=== PATIENT | female | born 1965 | race Caucasian/White ===

== ENCOUNTER → 2016-10-17 | Outpatient (REF) | payer OTHER ==
[~2016-10-17] MED LIST: BUPR75TA5 PO; GABA600T PO; IBUP600T; LEVO112T25 PO; LEVO200T6; LISI10TA4 PO; LORA10TA2 PO; OMEP40CA2 PO; PERC5TAB6 PO; TYLENOL #3; VESICARE; fluticasone spray; oxybutynin OR; tylenol OR
== END | disposition home or self-care (01) ==
LOC: M LAB REF 12:22
PROVIDERS: ATTEND Physician Assistant
DX: N39.0 Urinary tract infection, site not specified (principal)

== ENCOUNTER → 2016-11-06 | Outpatient (REF) | payer OTHER | END | disposition home or self-care (01) | LOC: M LAB REF 11:31 | PROVIDERS: ATTEND Physician Assistant Medical | DX: N39.0 Urinary tract infection, site not specified (principal) ==

== ENCOUNTER 2016-11-16 17:05 | Emergency (ER) | payer OTHER ==
[2016-11-16 17:54] LABS: MEAN CORPUSCULAR HEMOGLOBIN 29.8 pg (27.0-33.0); MEAN CORPUSCULAR HGB CONC 33.5 g/dl (32.0-36.5); RED CELL DISTRIBUTION WIDTH 12.2 % (11.5-14.5); WHITE BLOOD COUNT 6.8 K/mm3 (4.0-10.0)
[2016-11-16 18:06] LABS: ANION GAP 9 MEQ/L (8-16); BLOOD UREA NITROGEN 16 MG/DL (7-18); CALCIUM LEVEL 9.4 MG/DL (8.5-10.1); CARBON DIOXIDE LEVEL 26 MEQ/L (21-32); CHLORIDE LEVEL 105 MEQ/L (98-107); CREATININE FOR GFR 0.79 MG/DL (0.55-1.02); GLOMERULAR FILTRATION RATE > 60.0 (>51); GLUCOSE, FASTING 87 MG/DL (70-105); MAGNESIUM LEVEL 2.2 MG/DL (1.8-2.4); POTASSIUM SERUM 3.8 MEQ/L (3.5-5.1); SODIUM LEVEL 140 MEQ/L (136-145); T UPTAKE 37 % (30-39); THYROXINE (T4) 10.2 UG/DL (4.5-12.0)
--- NOTE | 2016-11-16 18:12 | REP ---
Clinical: Chest pain and palpitations . Comparison: 12/11/2011 . Technique: PA and lateral. Findings: The mediastinum and cardiac silhouette are normal. The lung simon are clear and without acute consolidation, effusion, or pneumothorax. The skeletal structures are intact and normal. Impression: 1. No acute cardiopulmonary process. Signed by Chester Hendrickson MD 11/16/2016 06:04 P
--- NOTE | 2016-11-16 20:18 | EDDOCDS ---
Nurse's Notes [facility] Name: Fatimah Bronson Age: 51 yrs Sex: Female : 1965 Arrival Date: 11/16/2016 Time: 17:05 Bed 5 Private MD: CLARA GREGORIO Diagnosis: Palpitations Presentation: 11/16 17:11 Presenting complaint: Patient states: she has been having palpitations since Sunday, j can feel a weird sensation left side of neck .does get lightheaded and nauseated. Adult Sepsis Screening: The patient does not have new or worsening altered mentation. Patient's respiratory rate is less than 22. Systolic blood pressure is greater than 100. Patient has a qSOFA score of 0- Negative Sepsis Screen. Suicide/Homicide risk assessment- the patient denies having any suicidal and/or homicidal ideations and does not present with any other emotional, behavioral or mental health complaints. Status: Patient is not a pool servicer or dependent. Transition of care: patient was not received from another setting of care. 17:11 Acuity: JANES Level 3 [facility] 17:11 Method Of Arrival: Walkin/Carried/Asstd [facility] Triage Assessment: 17:16 General: Appears in no apparent distress, Behavior is appropriate for age, pleasant. [facility] Pain: Denies pain. Pt Declines HIV testing. Neurological: Level of Consciousness is awake, alert, Oriented to person, place, time. Cardiovascular: Reports lightheadedness, palpitations. Respiratory: Airway is patent Respiratory effort is even, unlabored. Derm: Skin is pink, warm & dry. MEDIA ANALYST: 17:16 LMP N/A - Hysterectomy [facility] Historical: - Allergies: No known drug Allergies; - Home Meds: 1. lisinopril 10 mg Oral tab 1 tab once daily (Last dose: 11/16/2016 05:00) 2. loratadine 10 mg Oral tab 1 tab once daily (Last dose: 11/16/2016 05:00) 3. oxybutynin chloride 10 mg Oral tr24 1 tab once daily (Last dose: 11/16/2016 05:00) 4. levothyroxine 112 mcg Oral tab 1 tab once daily (Last dose: 11/16/2016 05:00) 5. topiramate 25 mg oral cp24 1 cap once daily (Last dose: 11/16/2016 05:00) 6. omeprazole 40 mg Oral cpDR 1 cap 2 times per day (Last dose: 11/16/2016 05:00) - PMHx: Arthritis; Chronic Back pain; Depression; GERD; Hypertension; - PSHx: Thyroidectomy; tubal reversal; Hysterectomy; Tubal ligation; Carpal Tunnel Repair- Bilateral; eye socket fracture repair; right pinky fracture repair and pin placement; bladder sling surgery; enterocele repair, rectocele repair, uterosacaral suspension Oct 2014; ulnar nerve right and left; cervical disc fusion; - Social history: Smoking status: Patient states former smoker of tobacco. No barriers to communication noted, The patient speaks fluent Scottish. - Family history: Not pertinent. - : The pt / caregiver states he / she is not on anticoagulants. Home medication list is obtained from the patient. - Exposure Risk Screening:: None identified. Screenin:30 Screening information is obtained from the patient. Fall risk: No risks identified. jo3 Assistance ADL's: requires no assistance with activities of daily living. Abuse/DV Screen: The patient / caregiver reports he/she is: not in a situation that causes fear, pain or injury. Nutritional screening: No deficits noted. Advance Directives: There is no active DNR order. home support is adequate. Assessment: 17:30 General: Appears in no apparent distress, comfortable, Behavior is appropriate for age, jo3 cooperative, pleasant. Neurological: No deficits noted. Level of Consciousness is awake, alert, Oriented to person, place, time, Speech is normal, Facial symmetry appears normal. EENT: No deficits noted. Cardiovascular: Rhythm is sinus rhythm No ectopy. Chest pain is described as mild, diffuse, is located in left anterior radiates Does not radiate. episodes are intermittent. Respiratory: No deficits noted. Airway is patent Respiratory effort is even, unlabored, Breath sounds are clear bilaterally. Derm: Skin is pink, warm & dry. 18:30 General: Appears in no apparent distress, comfortable, Behavior is appropriate for age, jo3 cooperative, pleasant. Neurological: No deficits noted. Respiratory: Airway is patent Respiratory effort is even, unlabored. 20:16 Reassessment: Patient appears in no apparent distress at this time. Patient states cf2 feeling better. Patient states symptoms have improved. Vital Signs: 17:07 BP 147 / 77; Pulse 82; Resp 18 S; Temp 97.5(O); Pulse Ox 99% ; Weight 104.33 kg (R); gr2 Height 5 ft. 3 in. (160.02 cm) (R); Pain 3/10; 19:27 BP 122 / 67 (auto/); cf2 19:27 Pulse 78 MON; Pulse Ox 95% ; cf2 20:05 Pulse 68 MON; cf2 20:06 BP 141 / 68 (auto/); cf2 20:07 Pulse Ox 94% ; cf2 20:08 BP 141 / 68; Pulse 76; Resp 18; Temp 97.6(O); Pulse Ox 99% on R/A; Pain 0/10; mdr 17:07 Body Mass Index 40.74 (104.33 kg, 160.02 cm) gr2 Vitals: 17:07 Log In Time: November 16, 2016 at 17:07. RN notified that patient meets Red Flag gr2 criteria. ED Course: 17:06 Patient visited by Emani Holt. gr2 17:06 Patient moved to Waiting gr2 17:07 CLARA GREGORIO is Private Physician. gr2 17:11 Patient visited by Emani Holt. gr2 17:11 Patient moved to Pre RCE gr2 17:13 Triage Initiated kpj 17:18 Patient moved to 5 kp 17:20 [facility] le 17:26 EKG done. (by ED staff). Reviewed by Yoko CARR. dem1 17:28 Patient visited by Nick Rodríguez. dem1 17:30 The patient / caregiver is instructed regarding the plan of care and ED course. jo3 17:30 Inserted saline lock: 18 gauge in right antecubital area. Labs drawn. (by ED staff). jo3 Sent per order to lab. 17:32 Patient visited by Yoko Galeano FNP. le 17:32 Patient visited by Yoko Galeano FNP. le 17:58 Patient visited by Albertina Herrera RN. jo3 18:20 [facility] [place] Payment Agreement was scanned into [email or web address] and attached to record. kf3 18:44 Chest, 2 View (pa\E\lat) Returned. EDMS 19:03 Latoya Granado,RN is Primary Nurse. cf2 19:03 Patient visited by Latoya Granado RN. cf2 19:27 Discontinued lock. No procedures done that require assistance. cf2 19:37 Patient visited by Latoya Granado RN. cf2 19:47 Joseph Jc MD is Referral Physician. le 19:58 Patient visited by Latoya Granado RN. cf2 20:17 Mikhail Salazar MD is Attending Physician. cf2 Order Results: Lab Order: CBC; SPEC'M 11/16/16 17:31 Test: WHITE BLOOD COUNT; Value: 6.8; Range: 4.0-10.0; Units: K/mm3; Status: F Test: RED BLOOD COUNT; Value: 4.19; Range: 4.00-5.40; Units: M/mm3; Status: F Test: HEMOGLOBIN; Value: 12.5; Range: 12.0-16.0; Units: g/dl; Status: F Test: HEMATOCRIT; Value: 37.3; Range: 36.0-47.0; Units: %; Status: F Test: MEAN CORPUSCULAR VOLUME; Value: 89.0; Range: 80.0-96.0; Units: fl; Status: F Test: MEAN CORPUSCULAR HEMOGLOBIN; Value: 29.8; Range: 27.0-33.0; Units: pg; Status: F Test: MEAN CORPUSCULAR HGB CONC; Value: 33.5; Range: 32.0-36.5; Units: g/dl; Status: F Test: RED CELL DISTRIBUTION WIDTH; Value: 12.2; Range: 11.5-14.5; Units: %; Status: F Test: PLATELET COUNT, AUTOMATED; Value: 313; Range: 150-450; Units: k/mm3; Status: F Lab Order: BMP; SPEC'M 11/16/16 17:31 Test: GLUCOSE, FASTING; Value: 87; Range: 70-105; Units: MG/DL; Status: F Test: BLOOD UREA NITROGEN; Value: 16; Range: 7-18; Units: MG/DL; Status: F Test: CREATININE FOR GFR; Value: 0.79; Range: 0.55-1.02; Units: MG/DL; Status: F Test: GLOMERULAR FILTRATION RATE; Value: > 60.0; Range: >51; Status: F Test: SODIUM LEVEL; Value: 140; Range: 136-145; Units: MEQ/L; Status: F Test: POTASSIUM SERUM; Value: 3.8; Range: 3.5-5.1; Units: MEQ/L; Status: F Test: CHLORIDE LEVEL; Value: 105; Range: 98-107; Units: MEQ/L; Status: F Test: CARBON DIOXIDE LEVEL; Value: 26; Range: 21-32; Units: MEQ/L; Status: F Test: ANION GAP; Value: 9; Range: 8-16; Units: MEQ/L; Status: F Test: CALCIUM LEVEL; Value: 9.4; Range: 8.5-10.1; Units: MG/DL; Status: F Test Note: ; Units are mL/min/1.73 m2 Chronic Kidney Disease Staging per NKF: Stage I & II GFR >=60 Normal to Mildly Decreased Stage III GFR 30-59 Moderately Decreased Stage IV GFR 15-29 Severely Decreased Stage V GFR <15 Very Little GFR Left ESRD GFR <15 on RESIDENTIAL GAS HEAT TECHNICIAN Lab Order: Magnesium Level; SPEC'11/16/16 17:31 Test: MAGNESIUM LEVEL; Value: 2.2; Range: 1.8-2.4; Units: MG/DL; Status: F Lab Order: Thyroid Profile; SPEC11/16/16 17:31 Test: T UPTAKE; Value: 37; Range: 30-39; Units: %; Status: F Test: THYROXINE (T4); Value: 10.2; Range: 4.5-12.0; Units: UG/DL; Status: F Test: FREE THYROXINE INDEX; Value: 3.8; Range: 1.3-4.8; Units: %; Status: F Test: THYROID STIMULATING HORMONE; Value: 0.043; Range: 0.358-3.740; Abnormal: Below low normal; Units: uIU/ML; Status: F Lab Order: CIP; SPEC'11/16/16 17:31 Test: CPK CREATINE PHOSPHOKINASE; Value: 176; Range: 26-192; Units: U/L; Status: F Test: CK-MB VALUE MASS; Value: 1.5; Range: 0.0-3.6; Units: NG/ML; Status: F Test: MB/CK RELATIVE INDEX; Value: 0.85; Range: < OR =4; Status: F Test Note: ; DIAGNOSIS CRITERIA MMB ng/ml Relative Index (RI) NON-AMI < or = 5 N/A [place] > 5 < or = 4 AMI > 5 > 4 Lab Order: Troponin; LALITHA 11/16/16 17:31 Test: TROPONIN I; Value: < 0.02; Range: < 0.10; Units: NG/ML; Status: F Test Note: ; Troponin I Reference Interval for [employer] LOCI: 99th Percentile= 0.00-0.045 ng/ml Risk Stratification: <= 0.10 ng/ml Decreased Risk for Adverse Clinical Events. 0.10-1.50 ng/ml Increased Risk for Adverse Clinical Events. Evaluation of additional criterion and/or repeat testing in 2-6 hours is suggested to rule out myocardial damage. >= 1.50 ng/ml Indicative of Myocardial Injury. Radiology Order: Chest, 2 View (pa\E\lat) Test: Chest, 2 View (pa\E\lat) REASON FOR EXAMINATION: palpitations; Clinical: Chest pain and palpitations .; ; Comparison: 12/11/2011 .; ; Technique: PA and lateral.; ; Findings:; The mediastinum and cardiac silhouette are normal. The lung simon are clear and; without acute consolidation, effusion, or pneumothorax. The skeletal structures; are intact and normal.; ; Impression:; 1. No acute cardiopulmonary process.; ; ; Signed by; Chester Hendrickson MD 11/16/2016 06:04 P; Outcome: 19:27 Discharge Assessment: Patient awake, alert and oriented x 3. No cognitive and/or cf2 functional deficits noted. Patient verbalized understanding of disposition instructions. Patient awake and alert. Oriented to person, place and time. patient administered narcotics - no. The following High Risk Discharge criteria are identified: None. Discharged to home ambulatory. Condition: good Condition: stable. Discharge instructions given to patient, Instructed on discharge instructions. No special radiology studies were completed. Property :Personal belongings accompany Pt. 19:47 Discharge ordered by Provider. le 20:17 Patient left the ED. cf2 Signatures: Dispatcher [employer] Maryse Brantley RN RN kpj Helmerci, Jennifer, RN RN jo3 Yoko Galeano, RELATIONS SPECIALIST RELATIONS SPECIALIST Benito Dent, Reg Reg kf3 Nick Rodríguez1 Emani Holt gr2 Cezar Murphy, ABHILASH SALT MACHINE OPERATOR mdr Ofelia-Latoya Thomas,RN RN cf2 JAYLYND
--- NOTE | 2016-11-16 20:18 | EDDOCDS ---
Physician Documentation [facility] Name: Fatimah Bronson Age: 51 yrs Sex: Female : 1965 Arrival Date: 11/16/2016 Time: 17:05 Bed 5 Private MD: CLARA GREGORIO [facility] Disposition: 11/16/16 19:47 Discharged to Home/Self Care. Impression: Palpitations. - Condition is Stable. - Discharge Instructions: Palpitations. - Medication Reconciliation, Local Pharmacy Hours, Work Release Form - 1 day form. - Follow up: Joseph Jc MD; When: Call to arrange an appointment; Reason: Recheck today's complaints, Continuance of care. - Problem is new. - Symptoms have improved. - Notes: Return to the ED for any further concerns Historical: - Allergies: No known drug Allergies; - Home Meds: 1. lisinopril 10 mg Oral tab 1 tab once daily (Last dose: 11/16/2016 05:00) 2. loratadine 10 mg Oral tab 1 tab once daily (Last dose: 11/16/2016 05:00) 3. oxybutynin chloride 10 mg Oral tr24 1 tab once daily (Last dose: 11/16/2016 05:00) 4. levothyroxine 112 mcg Oral tab 1 tab once daily (Last dose: 11/16/2016 05:00) 5. topiramate 25 mg oral cp24 1 cap once daily (Last dose: 11/16/2016 05:00) 6. omeprazole 40 mg Oral cpDR 1 cap 2 times per day (Last dose: 11/16/2016 05:00) - PMHx: Arthritis; Chronic Back pain; Depression; GERD; Hypertension; - PSHx: Thyroidectomy; tubal reversal; Hysterectomy; Tubal ligation; Carpal Tunnel Repair- Bilateral; eye socket fracture repair; right pinky fracture repair and pin placement; bladder sling surgery; enterocele repair, rectocele repair, uterosacaral suspension Oct 2014; ulnar nerve right and left; cervical disc fusion; - Social history: Smoking status: Patient states former smoker of tobacco. No barriers to communication noted, The patient speaks fluent Cook Islander. - Family history: Not pertinent. - : The pt / caregiver states he / she is not on anticoagulants. Home medication list is obtained from the patient. - Exposure Risk Screening:: None identified. CHANGE CONTROL COORDINATOR: 11/16 17:16 LMP N/A - Hysterectomy [facility] Vital Signs: 17:07 BP 147 / 77; Pulse 82; Resp 18 S; Temp 97.5(O); Pulse Ox 99% ; Weight 104.33 kg / gr2 230.01 lbs (R); Height 5 ft. 3 in. (160.02 cm) (R); Pain 3/10; 19:27 BP 122 / 67 (auto/); cf2 19:27 Pulse 78 MON; Pulse Ox 95% ; cf2 20:05 Pulse 68 MON; cf2 20:06 BP 141 / 68 (auto/); cf2 20:07 Pulse Ox 94% ; cf2 20:08 BP 141 / 68; Pulse 76; Resp 18; Temp 97.6(O); Pulse Ox 99% on R/A; Pain 0/10; mdr 17:07 Body Mass Index 40.74 (104.33 kg, 160.02 cm) gr2 MDM: 17:18 ECG WITH READING ER PHYS+CARDIAG ordered. EDMS 17:41 IV Saline Lock ordered. le 17:42 Chest, 2 View (pa\E\lat) Ordered. EDMS 17:42 CBC Ordered. EDMS 17:42 BMP Ordered. EDMS 17:42 Magnesium Level Ordered. EDMS 17:42 Thyroid Profile Ordered. EDMS 17:42 CIP Ordered. EDMS 17:42 Troponin Ordered. EDMS 17:55 Financial registration complete. ks16 18:20 [facility] [place] Payment Agreement was scanned into [employer] and attached to record. kf3 19:40 Thyroid Profile Reviewed. le 19:40 CBC Reviewed. le 19:40 BMP Reviewed. le 19:40 Magnesium Level Reviewed. le 19:40 CIP Reviewed. le 19:40 Troponin Reviewed. le 19:40 Chest, 2 View (pa\E\lat) Reviewed. le Signatures: Dispatcher [employer] EDMS Maryse Mario RN RN [facility] Albertina Herrera RN RN jenny3 Yoko Galeano, INSURANCE AGENCY MANAGER INSURANCE AGENCY MANAGER le Benito Muniz, Reg Reg kf3 Shazia Driver, Reg Reg ks16 Latoya Granado,YOLANDA RN cf2 The chart was reviewed and I authenticate all verbal orders and agree with the evaluation and treatment provided.Corrections: (The following items were deleted from the chart) 17:34 17:19 ECG WITH READING ER PHYS+CARDIAG ordered. EDMS EDMS Attachments: 18:20 [facility] Payment Agreement kf3 MTDD
--- NOTE | 2016-11-17 15:16 | ECGEPIP ---
Stationary ECG Study [facility] - ED Test Date: 2016-11-16 Pat Name: KENROY CUEVAS Department: Room: - Gender: F Mail Superintendent: chano : 1965 Requested By: Mikhail Gallagher Order Number: [id number] Reading MD: Cielo Gooden Measurements Intervals [place] Rate: 73 P: 59 [place]: 167 QRS: 24 QRSD: 95 T: 7 QT: 366 QTc: 406 Interpretive Statements SINUS RHYTHM WITH SINUS ARRHYTHMIA NSTTW ABNORMALITY SIMILAR 02/22/16 Electronically Signed On 11-17-2016 15:16:25 EST by Cielo Gooden
--- NOTE | 2016-11-18 21:18 | EDDOCDS ---
Physician Documentation [facility] Name: Fatimah Bronson Age: 51 yrs Sex: Female : 1965 Arrival Date: 11/16/2016 Time: 17:05 Bed 5 Private MD: CLARA GREGORIO [facility] Disposition: 11/16/16 19:47 Discharged to Home/Self Care. Impression: Palpitations. - Condition is Stable. - Discharge Instructions: Palpitations. - Medication Reconciliation, Local Pharmacy Hours, Work Release Form - 1 day form. - Follow up: Joseph Jc MD; When: Call to arrange an appointment; Reason: Recheck today's complaints, Continuance of care. - Problem is new. - Symptoms have improved. - Notes: Return to the ED for any further concerns Historical: - Allergies: No known drug Allergies; - Home Meds: 1. lisinopril 10 mg Oral tab 1 tab once daily (Last dose: 11/16/2016 05:00) 2. loratadine 10 mg Oral tab 1 tab once daily (Last dose: 11/16/2016 05:00) 3. oxybutynin chloride 10 mg Oral tr24 1 tab once daily (Last dose: 11/16/2016 05:00) 4. levothyroxine 112 mcg Oral tab 1 tab once daily (Last dose: 11/16/2016 05:00) 5. topiramate 25 mg oral cp24 1 cap once daily (Last dose: 11/16/2016 05:00) 6. omeprazole 40 mg Oral cpDR 1 cap 2 times per day (Last dose: 11/16/2016 05:00) - PMHx: Arthritis; Chronic Back pain; Depression; GERD; Hypertension; - PSHx: Thyroidectomy; tubal reversal; Hysterectomy; Tubal ligation; Carpal Tunnel Repair- Bilateral; eye socket fracture repair; right pinky fracture repair and pin placement; bladder sling surgery; enterocele repair, rectocele repair, uterosacaral suspension Oct 2014; ulnar nerve right and left; cervical disc fusion; - Social history: Smoking status: Patient states former smoker of tobacco. No barriers to communication noted, The patient speaks fluent Armenian. - Family history: Not pertinent. - : The pt / caregiver states he / she is not on anticoagulants. Home medication list is obtained from the patient. - Exposure Risk Screening:: None identified. SYSTEMS DEVELOPMENT MANAGER: 11/16 17:16 LMP N/A - Hysterectomy [facility] Vital Signs: 17:07 BP 147 / 77; Pulse 82; Resp 18 S; Temp 97.5(O); Pulse Ox 99% ; Weight 104.33 kg / gr2 230.01 lbs (R); Height 5 ft. 3 in. (160.02 cm) (R); Pain 3/10; 19:27 BP 122 / 67 (auto/); cf2 19:27 Pulse 78 MON; Pulse Ox 95% ; cf2 20:05 Pulse 68 MON; cf2 20:06 BP 141 / 68 (auto/); cf2 20:07 Pulse Ox 94% ; cf2 20:08 BP 141 / 68; Pulse 76; Resp 18; Temp 97.6(O); Pulse Ox 99% on R/A; Pain 0/10; mdr 17:07 Body Mass Index 40.74 (104.33 kg, 160.02 cm) gr2 MDM: 17:18 ECG WITH READING ER PHYS+CARDIAG ordered. EDMS 17:41 IV Saline Lock ordered. le 17:42 Chest, 2 View (pa\E\lat) Ordered. EDMS 17:42 CBC Ordered. EDMS 17:42 BMP Ordered. EDMS 17:42 Magnesium Level Ordered. EDMS 17:42 Thyroid Profile Ordered. EDMS 17:42 CIP Ordered. EDMS 17:42 Troponin Ordered. EDMS 17:55 Financial registration complete. ks16 18:20 [facility] [place] was scanned into [employer] and attached to record. kf3 19:40 Thyroid Profile Reviewed. le 19:40 CBC Reviewed. le 19:40 BMP Reviewed. le 19:40 Magnesium Level Reviewed. le 19:40 CIP Reviewed. le 19:40 Troponin Reviewed. le 19:40 Chest, 2 View (pa\E\lat) Reviewed. le 11/17 20:07 T-Sheet-- Draft Copy was scanned into [employer] and attached to record. klr 21:44 ECG/EKG was scanned into [employer] and attached to record. klr Signatures: Dispatcher [employer] EDMS Maryse Mario RN RN j Albertina HerreraRN RN jo3 Yoko Galeano, BOUNTY HUNTER BOUNTY HUNTER le Benito Muniz, Reg Reg kf3 Shazia Driver, Reg Reg ks16 Renetta Wilder klr Latoya Granado,RN RN cf2 The chart was reviewed and I authenticate all verbal orders and agree with the evaluation and treatment provided.Corrections: (The following items were deleted from the chart) 11/16 17:34 17:19 ECG WITH READING ER PHYS+CARDIAG ordered. EDMS EDMS Attachments: 18:20 [facility] [place] kf3 11/17 20:07 T-Sheet-- Draft Copy klr 21:44 ECG/EKG klr Chart Complete MTDD
--- NOTE | 2016-11-18 21:18 | EDDOCDS ---
Physician Documentation [facility] Name: Fatimah Bronson Age: 51 yrs Sex: Female : 1965 Arrival Date: 11/16/2016 Time: 17:05 Bed 5 Private MD: CLARA GREGORIO [facility] Disposition: 11/16/16 19:47 Discharged to Home/Self Care. Impression: Palpitations. - Condition is Stable. - Discharge Instructions: Palpitations. - Medication Reconciliation, Local Pharmacy Hours, Work Release Form - 1 day form. - Follow up: Joseph Jc MD; When: Call to arrange an appointment; Reason: Recheck today's complaints, Continuance of care. - Problem is new. - Symptoms have improved. - Notes: Return to the ED for any further concerns Historical: - Allergies: No known drug Allergies; - Home Meds: 1. lisinopril 10 mg Oral tab 1 tab once daily (Last dose: 11/16/2016 05:00) 2. loratadine 10 mg Oral tab 1 tab once daily (Last dose: 11/16/2016 05:00) 3. oxybutynin chloride 10 mg Oral tr24 1 tab once daily (Last dose: 11/16/2016 05:00) 4. levothyroxine 112 mcg Oral tab 1 tab once daily (Last dose: 11/16/2016 05:00) 5. topiramate 25 mg oral cp24 1 cap once daily (Last dose: 11/16/2016 05:00) 6. omeprazole 40 mg Oral cpDR 1 cap 2 times per day (Last dose: 11/16/2016 05:00) - PMHx: Arthritis; Chronic Back pain; Depression; GERD; Hypertension; - PSHx: Thyroidectomy; tubal reversal; Hysterectomy; Tubal ligation; Carpal Tunnel Repair- Bilateral; eye socket fracture repair; right pinky fracture repair and pin placement; bladder sling surgery; enterocele repair, rectocele repair, uterosacaral suspension Oct 2014; ulnar nerve right and left; cervical disc fusion; - Social history: Smoking status: Patient states former smoker of tobacco. No barriers to communication noted, The patient speaks fluent Fijian. - Family history: Not pertinent. - : The pt / caregiver states he / she is not on anticoagulants. Home medication list is obtained from the patient. - Exposure Risk Screening:: None identified. SPECIALIZED LANGUAGE INSTRUCTOR: 11/16 17:16 LMP N/A - Hysterectomy [facility] Vital Signs: 17:07 BP 147 / 77; Pulse 82; Resp 18 S; Temp 97.5(O); Pulse Ox 99% ; Weight 104.33 kg / gr2 230.01 lbs (R); Height 5 ft. 3 in. (160.02 cm) (R); Pain 3/10; 19:27 BP 122 / 67 (auto/); cf2 19:27 Pulse 78 MON; Pulse Ox 95% ; cf2 20:05 Pulse 68 MON; cf2 20:06 BP 141 / 68 (auto/); cf2 20:07 Pulse Ox 94% ; cf2 20:08 BP 141 / 68; Pulse 76; Resp 18; Temp 97.6(O); Pulse Ox 99% on R/A; Pain 0/10; mdr 17:07 Body Mass Index 40.74 (104.33 kg, 160.02 cm) gr2 MDM: 17:18 ECG WITH READING ER PHYS+CARDIAG ordered. EDMS 17:41 IV Saline Lock ordered. le 17:42 Chest, 2 View (pa\E\lat) Ordered. EDMS 17:42 CBC Ordered. EDMS 17:42 BMP Ordered. EDMS 17:42 Magnesium Level Ordered. EDMS 17:42 Thyroid Profile Ordered. EDMS 17:42 CIP Ordered. EDMS 17:42 Troponin Ordered. EDMS 17:55 Financial registration complete. ks16 18:20 [facility] [place] Payment Agreement was scanned into [employer] and attached to record. kf3 19:40 Thyroid Profile Reviewed. le 19:40 CBC Reviewed. le 19:40 BMP Reviewed. le 19:40 Magnesium Level Reviewed. le 19:40 CIP Reviewed. le 19:40 Troponin Reviewed. le 19:40 Chest, 2 View (pa\E\lat) Reviewed. le 11/17 20:07 T-Sheet-- Draft Copy was scanned into [employer] and attached to record. klr 21:44 ECG/EKG was scanned into [employer] and attached to record. klr Signatures: Dispatcher [employer] EDMS Maryse Mario RN RN j Albertina HerreraRN RN jo3 Yoko Galeano, EMPLOYEE SERVICES MANAGER EMPLOYEE SERVICES MANAGER le Benito Muniz, Reg Reg kf3 Shazia Driver, Reg Reg ks16 Renetta Wilder klr Latoya Granado,RN RN cf2 The chart was reviewed and I authenticate all verbal orders and agree with the evaluation and treatment provided.Corrections: (The following items were deleted from the chart) 11/16 17:34 17:19 ECG WITH READING ER PHYS+CARDIAG ordered. EDMS EDMS Attachments: 18:20 [facility] [place] Payment Agreement kf3 11/17 20:07 T-Sheet-- Draft Copy klr 21:44 ECG/EKG klr Chart Complete MTDD
--- NOTE | 2016-11-18 21:18 | EDDOCDS ---
Nurse's Notes [facility] Name: Kenroy Bronson Age: 51 yrs Sex: Female : 1965 Arrival Date: 11/16/2016 Time: 17:05 Bed 5 Private MD: CLARA GREGORIO Diagnosis: Palpitations Presentation: 11/16 17:11 Presenting complaint: Patient states: she has been having palpitations since Sunday, j can feel a weird sensation left side of neck .does get lightheaded and nauseated. Adult Sepsis Screening: The patient does not have new or worsening altered mentation. Patient's respiratory rate is less than 22. Systolic blood pressure is greater than 100. Patient has a qSOFA score of 0- Negative Sepsis Screen. Suicide/Homicide risk assessment- the patient denies having any suicidal and/or homicidal ideations and does not present with any other emotional, behavioral or mental health complaints. Status: Patient is not a web services architect or dependent. Transition of care: patient was not received from another setting of care. 17:11 Acuity: JANES Level 3 [facility] 17:11 Method Of Arrival: Walkin/Carried/Asstd [facility] Triage Assessment: 17:16 General: Appears in no apparent distress, Behavior is appropriate for age, pleasant. [facility] Pain: Denies pain. Pt Declines HIV testing. Neurological: Level of Consciousness is awake, alert, Oriented to person, place, time. Cardiovascular: Reports lightheadedness, palpitations. Respiratory: Airway is patent Respiratory effort is even, unlabored. Derm: Skin is pink, warm & dry. SLIP BOX CHANGER: 17:16 LMP N/A - Hysterectomy [facility] Historical: - Allergies: No known drug Allergies; - Home Meds: 1. lisinopril 10 mg Oral tab 1 tab once daily (Last dose: 11/16/2016 05:00) 2. loratadine 10 mg Oral tab 1 tab once daily (Last dose: 11/16/2016 05:00) 3. oxybutynin chloride 10 mg Oral tr24 1 tab once daily (Last dose: 11/16/2016 05:00) 4. levothyroxine 112 mcg Oral tab 1 tab once daily (Last dose: 11/16/2016 05:00) 5. topiramate 25 mg oral cp24 1 cap once daily (Last dose: 11/16/2016 05:00) 6. omeprazole 40 mg Oral cpDR 1 cap 2 times per day (Last dose: 11/16/2016 05:00) - PMHx: Arthritis; Chronic Back pain; Depression; GERD; Hypertension; - PSHx: Thyroidectomy; tubal reversal; Hysterectomy; Tubal ligation; Carpal Tunnel Repair- Bilateral; eye socket fracture repair; right pinky fracture repair and pin placement; bladder sling surgery; enterocele repair, rectocele repair, uterosacaral suspension Oct 2014; ulnar nerve right and left; cervical disc fusion; - Social history: Smoking status: Patient states former smoker of tobacco. No barriers to communication noted, The patient speaks fluent Monegasque. - Family history: Not pertinent. - : The pt / caregiver states he / she is not on anticoagulants. Home medication list is obtained from the patient. - Exposure Risk Screening:: None identified. Screenin:30 Screening information is obtained from the patient. Fall risk: No risks identified. jo3 Assistance ADL's: requires no assistance with activities of daily living. Abuse/DV Screen: The patient / caregiver reports he/she is: not in a situation that causes fear, pain or injury. Nutritional screening: No deficits noted. Advance Directives: There is no active DNR order. home support is adequate. Assessment: 17:30 General: Appears in no apparent distress, comfortable, Behavior is appropriate for age, jo3 cooperative, pleasant. Neurological: No deficits noted. Level of Consciousness is awake, alert, Oriented to person, place, time, Speech is normal, Facial symmetry appears normal. EENT: No deficits noted. Cardiovascular: Rhythm is sinus rhythm No ectopy. Chest pain is described as mild, diffuse, is located in left anterior radiates Does not radiate. episodes are intermittent. Respiratory: No deficits noted. Airway is patent Respiratory effort is even, unlabored, Breath sounds are clear bilaterally. Derm: Skin is pink, warm & dry. 18:30 General: Appears in no apparent distress, comfortable, Behavior is appropriate for age, jo3 cooperative, pleasant. Neurological: No deficits noted. Respiratory: Airway is patent Respiratory effort is even, unlabored. 20:16 Reassessment: Patient appears in no apparent distress at this time. Patient states cf2 feeling better. Patient states symptoms have improved. Vital Signs: 17:07 BP 147 / 77; Pulse 82; Resp 18 S; Temp 97.5(O); Pulse Ox 99% ; Weight 104.33 kg (R); gr2 Height 5 ft. 3 in. (160.02 cm) (R); Pain 3/10; 19:27 BP 122 / 67 (auto/); cf2 19:27 Pulse 78 MON; Pulse Ox 95% ; cf2 20:05 Pulse 68 MON; cf2 20:06 BP 141 / 68 (auto/); cf2 20:07 Pulse Ox 94% ; cf2 20:08 BP 141 / 68; Pulse 76; Resp 18; Temp 97.6(O); Pulse Ox 99% on R/A; Pain 0/10; mdr 17:07 Body Mass Index 40.74 (104.33 kg, 160.02 cm) gr2 Vitals: 17:07 Log In Time: November 16, 2016 at 17:07. RN notified that patient meets Red Flag gr2 criteria. ED Course: 17:06 Patient visited by Emani Holt. gr2 17:06 Patient moved to Waiting gr2 17:07 CLARA GREGORIO is Private Physician. gr2 17:11 Patient visited by Emani Holt. gr2 17:11 Patient moved to Pre RCE gr2 17:13 Triage Initiated kpj 17:18 Patient moved to 5 kp 17:20 [facility] le 17:26 EKG done. (by ED staff). Reviewed by Yoko CARR. dem1 17:28 Patient visited by Nick Rodríguez. dem1 17:30 The patient / caregiver is instructed regarding the plan of care and ED course. jo3 17:30 Inserted saline lock: 18 gauge in right antecubital area. Labs drawn. (by ED staff). jo3 Sent per order to lab. 17:32 Patient visited by Yoko Galeano FNP. le 17:32 Patient visited by Yoko Galeano FNP. le 17:58 Patient visited by Albertina Herrera RN. jo3 18:20 [facility] [place] Payment Agreement was scanned into [employer] and attached to record. kf3 18:44 Chest, 2 View (pa\E\lat) Returned. EDMS 19:03 Latoya Granado,RN is Primary Nurse. cf2 19:03 Patient visited by Latoya Granado RN. cf2 19:27 Discontinued lock. No procedures done that require assistance. cf2 19:37 Patient visited by Latoya Granado RN. cf2 19:47 Joesph Jc MD is Referral Physician. le 19:58 Patient visited by Latoya Granado RN. cf2 20:17 Mikhail Salazar MD is Attending Physician. 2 11/17 16:07 EKG-ADULT Returned. EDMS 20:07 T-Sheet-- Draft Copy was scanned into [employer] and attached to record. klr 21:44 ECG/EKG was scanned into [employer] and attached to record. klr Order Results: Lab Order: CBC; SPEC'M 11/16/16 17:31 Test: WHITE BLOOD COUNT; Value: 6.8; Range: 4.0-10.0; Units: K/mm3; Status: F Test: RED BLOOD COUNT; Value: 4.19; Range: 4.00-5.40; Units: M/mm3; Status: F Test: HEMOGLOBIN; Value: 12.5; Range: 12.0-16.0; Units: g/dl; Status: F Test: HEMATOCRIT; Value: 37.3; Range: 36.0-47.0; Units: %; Status: F Test: MEAN CORPUSCULAR VOLUME; Value: 89.0; Range: 80.0-96.0; Units: fl; Status: F Test: MEAN CORPUSCULAR HEMOGLOBIN; Value: 29.8; Range: 27.0-33.0; Units: pg; Status: F Test: MEAN CORPUSCULAR HGB CONC; Value: 33.5; Range: 32.0-36.5; Units: g/dl; Status: F Test: RED CELL DISTRIBUTION WIDTH; Value: 12.2; Range: 11.5-14.5; Units: %; Status: F Test: PLATELET COUNT, AUTOMATED; Value: 313; Range: 150-450; Units: k/mm3; Status: F Lab Order: BMP; SPEC'M 11/16/16 17:31 Test: GLUCOSE, FASTING; Value: 87; Range: 70-105; Units: MG/DL; Status: F Test: BLOOD UREA NITROGEN; Value: 16; Range: 7-18; Units: MG/DL; Status: F Test: CREATININE FOR GFR; Value: 0.79; Range: 0.55-1.02; Units: MG/DL; Status: F Test: GLOMERULAR FILTRATION RATE; Value: > 60.0; Range: >51; Status: F Test: SODIUM LEVEL; Value: 140; Range: 136-145; Units: MEQ/L; Status: F Test: POTASSIUM SERUM; Value: 3.8; Range: 3.5-5.1; Units: MEQ/L; Status: F Test: CHLORIDE LEVEL; Value: 105; Range: 98-107; Units: MEQ/L; Status: F Test: CARBON DIOXIDE LEVEL; Value: 26; Range: 21-32; Units: MEQ/L; Status: F Test: ANION GAP; Value: 9; Range: 8-16; Units: MEQ/L; Status: F Test: CALCIUM LEVEL; Value: 9.4; Range: 8.5-10.1; Units: MG/DL; Status: F Test Note: ; Units are mL/min/1.73 m2 Chronic Kidney Disease Staging per NKF: Stage I & II GFR >=60 Normal to Mildly Decreased Stage III GFR 30-59 Moderately Decreased Stage IV GFR 15-29 Severely Decreased Stage V GFR <15 Very Little GFR Left ESRD GFR <15 on SCREEN ROOM OPERATOR Lab Order: Magnesium Level; SPEC'11/16/16 17:31 Test: MAGNESIUM LEVEL; Value: 2.2; Range: 1.8-2.4; Units: MG/DL; Status: F Lab Order: Thyroid Profile; SPEC'11/16/16 17:31 Test: T UPTAKE; Value: 37; Range: 30-39; Units: %; Status: F Test: THYROXINE (T4); Value: 10.2; Range: 4.5-12.0; Units: UG/DL; Status: F Test: FREE THYROXINE INDEX; Value: 3.8; Range: 1.3-4.8; Units: %; Status: F Test: THYROID STIMULATING HORMONE; Value: 0.043; Range: 0.358-3.740; Abnormal: Below low normal; Units: uIU/ML; Status: F Lab Order: CIP; SPEC'11/16/16 17:31 Test: CPK CREATINE PHOSPHOKINASE; Value: 176; Range: 26-192; Units: U/L; Status: F Test: CK-MB VALUE MASS; Value: 1.5; Range: 0.0-3.6; Units: NG/ML; Status: F Test: MB/CK RELATIVE INDEX; Value: 0.85; Range: < OR =4; Status: F Test Note: ; DIAGNOSIS CRITERIA MMB ng/ml Relative Index (RI) NON-AMI < or = 5 N/A [place] > 5 < or = 4 AMI > 5 > 4 Lab Order: Troponin; SPEC'M 11/16/16 17:31 Test: TROPONIN I; Value: < 0.02; Range: < 0.10; Units: NG/ML; Status: F Test Note: ; Troponin I Reference Interval for [employer] LOCI: 99th Percentile= 0.00-0.045 ng/ml Risk Stratification: <= 0.10 ng/ml Decreased Risk for Adverse Clinical Events. 0.10-1.50 ng/ml Increased Risk for Adverse Clinical Events. Evaluation of additional criterion and/or repeat testing in 2-6 hours is suggested to rule out myocardial damage. >= 1.50 ng/ml Indicative of Myocardial Injury. 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; : 1965 Requested By: Mikhail Gallagher; Order Number: [id number] Reading MD: Cielo Gooden; Measurements; Intervals [place]; Rate: 73 P: 59; WA: 167 QRS: 24; QRSD: 95 T: 7; QT: 366; QTc: 406; Interpretive Statements; SINUS RHYTHM WITH SINUS ARRHYTHMIA; NSTTW ABNORMALITY; SIMILAR 02/22/16; Electronically Signed On 11-17-2016 15:16:25 EST by Cielo Gooden; Radiology Order: Chest, 2 View (pa\E\lat) Test: Chest, 2 View (pa\E\lat) REASON FOR EXAMINATION: palpitations; Clinical: Chest pain and palpitations .; ; Comparison: 12/11/2011 .; ; Technique: PA and lateral.; ; Findings:; The mediastinum and cardiac silhouette are normal. The lung simon are clear and; without acute consolidation, effusion, or pneumothorax. The skeletal structures; are intact and normal.; ; Impression:; 1. No acute cardiopulmonary process.; ; ; Signed by; Chester Hendrickson MD 11/16/2016 06:04 P; Outcome: 11/16 19:27 Discharge Assessment: Patient awake, alert and oriented x 3. No cognitive and/or cf2 functional deficits noted. Patient verbalized understanding of disposition instructions. Patient awake and alert. Oriented to person, place and time. patient administered narcotics - no. The following High Risk Discharge criteria are identified: None. Discharged to home ambulatory. Condition: good Condition: stable. Discharge instructions given to patient, Instructed on discharge instructions. No special radiology studies were completed. Property :Personal belongings accompany Pt. 19:47 Discharge ordered by Provider. le 20:17 Patient left the ED. cf2 Signatures: Dispatcher [employer] EDMS Maryse Mario, RN RN Albertina TayRN RN jo3 Yoko Galeano, CASINO WORKER CASINO WORKER le Benito Muniz, Reg Reg kf3 Nick Rodríguez1 Emani Holt gr2 Cezar Murphy, ABHILASH CITRUS PICKER Renetta Yao Christina,RN RN cf2 Chart Complete MTDD
== END 2016-11-16 20:17 | disposition home or self-care (01) ==
LOC: M ED 17:05
DX: R00.2 Palpitations (principal); I10 Essential (primary) hypertension; K21.9 Gastro-esophageal reflux disease without esophagitis; F32.9 Major depressive disorder, single episode, unspecified; G89.29 Other chronic pain; M19.90 Unspecified osteoarthritis, unspecified site; Z90.79 Acquired absence of other genital organ(s); Z90.89 Acquired absence of other organs; Z98.1 Arthrodesis status; Z87.891 Personal history of nicotine dependence; Z79.899 Other long term (current) drug therapy

== ENCOUNTER → 2017-01-14 | Outpatient (REF) | payer OTHER | LOC: M LAB REF 09:47 | PROVIDERS: ATTEND Physician Assistant Medical | DX: N39.0 Urinary tract infection, site not specified (principal) ==

== ENCOUNTER → 2017-02-02 | Outpatient (CLI) | payer OTHER ==
--- NOTE | 2017-02-06 09:31 | SLEEPHOME ---
DATE OF STUDY: 02/02/2017 ORDERING PROVIDER: Priscila Randle NP Diagnostic home sleep testing was performed due to concern for the obstructive sleep apnea syndrome. For testing, a NOX-T3 respiratory monitoring device was used. Continuous record was made of pulse, oxygen saturation, airflow, chest and abdominal strain, and body position. 9 hours and 59 minutes of data were reviewed. Of these, 8 hours and 44 minutes were marked as time in bed. During the interval marked time in bed, there were 103 respiratory events identified of 10 seconds in duration or greater for a respiratory event index of 11.8. The events were primarily obstructive. Baseline pulse rate 60. Pulse rate ranged 43-91. Baseline saturation 93%. Lowest oxygen saturation 84%. Testing was performed in both the supine and nonsupine positions. IMPRESSION: Abnormal home sleep test with repetitive respiratory events and oxygen desaturations to 84% with a respiratory event index of 11.8 is consistent with the obstructive sleep apnea syndrome. RECOMMENDATION: The patient should be referred for formal sleep evaluation and in-laboratory pressure titration.
== END ==
LOC: M SLEEP HO 15:30
PROVIDERS: ATTEND Nurse Practitioner Adult Health
DX: G47.9 Sleep disorder, unspecified (principal)

== ENCOUNTER → 2017-02-09 | Outpatient (CLI) | payer OTHER ==
[2017-02-09 11:11] LABS: BASO % 0.6 % (0.0-1.0); EOS # 0.2 K/mm3 (0.0-0.50); EOS % 3.8 % (0.0-3.0); LARGE UNSTAINED CELL # 0.1 K/mm3 (0.0-0.4); LARGE UNSTAINED CELL % 1.6 % (0.0-4.0); LYMPH # 1.1 K/mm3 (1.5-4.5); LYMPH % 22.6 % (24.0-44.0); MEAN CORPUSCULAR HEMOGLOBIN 30.2 pg (27.0-33.0); MEAN CORPUSCULAR HGB CONC 32.6 g/dl (32.0-36.5); MEAN CORPUSCULAR VOLUME 92.8 fl (80.0-96.0); MONO # 0.2 K/mm3 (0.0-0.8); MONO % 4.2 % (0.0-5.0); NEUTROPHILS # 3.2 K/mm3 (1.8-7.7); NEUTROPHILS % 67.2 % (36.0-66.0); PLATELET COUNT, AUTOMATED 292 k/mm3 (150-450); RED CELL DISTRIBUTION WIDTH 12.2 % (11.5-14.5); WHITE BLOOD COUNT 4.8 K/mm3 (4.0-10.0)
[2017-02-09 11:31] LABS: FOLATE 14.5 NG/ML (>5.4); VITAMIN B12 LEVEL 376 PG/ML (247-911)
[2017-02-09 11:39] LABS: ALBUMIN 3.9 GM/DL (3.2-5.2); ALBUMIN/GLOBULIN RATIO 1.18 (1.00-1.93); ALKALINE PHOSPHATASE 94 U/L (45-117); ALT/SGPT 26 U/L (12-78); ANION GAP 8 MEQ/L (8-16); AST/SGOT 17 U/L (15-37); BILIRUBIN,TOTAL 1.3 MG/DL (0.2-1.0); BLOOD UREA NITROGEN 12 MG/DL (7-18); CALCIUM LEVEL 8.8 MG/DL (8.5-10.1); CARBON DIOXIDE LEVEL 26 MEQ/L (21-32); CHLORIDE LEVEL 104 MEQ/L (98-107); CHOLESTEROL LEVEL 223 MG/DL (< 200); CREATININE FOR GFR 0.79 MG/DL (0.55-1.02); FERRITIN 22 NG/ML (8-252); GLOMERULAR FILTRATION RATE > 60.0 (>51); GLUCOSE, FASTING 92 MG/DL (70-105); PERCENT SATURATION 27.9 % (13.2-37.4); PHOSPHORUS LEVEL 3.2 MG/DL (2.5-4.9); SODIUM LEVEL 138 MEQ/L (136-145); T UPTAKE 37 % (30-39); THYROXINE (T4) 11.3 UG/DL (4.5-12.0); TOTAL IRON BINDING CAPACITY 398 UG/DL (250-450); TOTAL PROTEIN 7.2 GM/DL (6.4-8.2); TRIGLYCERIDES LEVEL 128 MG/DL (<150)
[2017-02-09 12:00] LABS: ERYTHROCYTE SEDIMENTATION RATE 12 mm/hr (0-30)
[2017-02-11 00:06] LABS: Lyme Disease IgG/IgM Antibodie <0.91 ISR (0.00-0.90); Lyme Disease IgM Ab Quantitati <0.80 index (0.00-0.79)
== END ==
LOC: M WUC 09:30
PROVIDERS: ATTEND Nurse Practitioner Family
DX: M25.50 Pain in unspecified joint (principal); M79.1 Myalgia; E03.9 Hypothyroidism, unspecified

== ENCOUNTER → 2017-02-16 | Outpatient (CLI) | payer OTHER ==
[~2017-02-16] MED LIST changes: +MYRB50TA; +PERC5TAB12 PO; -PERC5TAB6 PO; +PERC7.5T11 PO; +TOPI25TA10
--- NOTE | 2017-02-16 13:59 | REP ---
MR THORACIC SPINE WITHOUT CONTRAST: HISTORY: Neck numbness. A small right paracentral disc protrusion is present at the T3-4 level. There is minimal effacement of the thecal sac without spinal cord compression. The T3 neural foramina are patent. A small central disc protrusion is present at the T4-5 level. There is minimal effacement of the thecal sac without spinal cord compression. The T4 neural foramina are patent. A small left paracentral and intraforaminal disc protrusion are present at the T9-10 level. There is minimal effacement of the thecal sac without spinal cord compression. The T9 nerves exit the neural foramina without compression. A small right paracentral disc protrusion is present at the T11-12 level. There is minimal effacement of the thecal sac without spinal cord compression. The T11 neural foramina are patent. Facet hypertrophy is present at the T10-11 and T12-L1 levels. There is minimal effacement of the thecal sac without spinal cord compression. There is no other disc bulge or herniation. The remaining neural foramina are patent. The spinal cord is normal in signal intensity. A hemangioma is present in the L1 vertebral body. Normal signal intensity is present in the thoracic vertebral bodies. Anterior osteophytes are present throughout the thoracic spine. IMPRESSION: Small disc protrusions at the T3-4, T4-5, T9-10, and T11-12 levels without spinal cord compression. Signed by Ben William MD 02/16/2017 02:26 P
== END ==
LOC: M PLARAD 12:30
PROVIDERS: ATTEND Physician Assistant
DX: M54.5 Low back pain (principal)

== ENCOUNTER → 2017-02-22 | Outpatient (CLI) | payer OTHER ==
[~2017-02-22] MED LIST changes: -MYRB50TA; -PERC5TAB12 PO; +PERC5TAB6 PO; -PERC7.5T11 PO; -TOPI25TA10
--- NOTE | 2017-02-22 10:05 | REPMRS ---
Patient History The patient states she had a clinical breast exam in 03/10 Patient is postmenopausal. Family history of prostate cancer in father at age 50 or over, breast cancer in paternal aunt under age 50, and breast cancer in maternal aunt under age 50. Benign excisional biopsy of the right breast. Digital Woman Screen Mammo: February 22, 2017 - Exam #: [id number] Bilateral CC and MLO view(s) were taken. Technologist: Leslie Becerril, Technologist Prior study comparison: February 23, 2016, digital woman screen mammo performed at [facility]. September 19, 2011, digital bilateral screening mammo, performed at [facility]. FINDINGS: There are scattered fibroglandular densities. There has been no change in the appearance of the mammogram from the prior studies. There is a mild amount of residual fibroglandular tissue which is fairly symmetric. There is no interval development of dominant mass, architectural distortion, or clustered microcalcification suggestive of malignancy. ASSESSMENT: BI-RADS/ACR category 1 mammogram. Negative. Recommendation Routine screening mammogram in 1 year (for women over age 40). This mammogram was interpreted with the aid of an FDA-approved computer-aided dectection system. Electronically Signed By: Raymundo Reyes MD 02/22/17 [id number]
== END ==
LOC: M WHC 08:36
PROVIDERS: ATTEND Nurse Practitioner Family
DX: Z12.31 Encounter for screening mammogram for malignant neoplasm of breast (principal)

== ENCOUNTER 2017-04-30 12:39 | Emergency (ER) | payer OTHER ==
[~2017-04-30] VITALS: Ht 160 cm; Wt 97.3 kg
[~2017-04-30 12:39] MED LIST changes: +PERC5TAB12 PO; -PERC5TAB6 PO
[2017-04-30 12:40] VITALS: BP 128/64
[2017-04-30] MEDS ORDERED: TOPI25TA10 (13:22)
[2017-04-30] MEDS ORDERED: MYRB50TA (13:22)
[2017-04-30] MEDS ORDERED: KETOROLAC 60 MG/2 ML VIAL (J1885) IM ONE (15:15)
[2017-04-30] MEDS ORDERED: PERC7.5T11 PO (16:00)
== END 2017-04-30 16:24 | disposition home or self-care (01) ==
LOC: M ED 12:39
DX: M54.16 Radiculopathy, lumbar region (principal); G89.29 Other chronic pain; I10 Essential (primary) hypertension; E03.9 Hypothyroidism, unspecified; K21.9 Gastro-esophageal reflux disease without esophagitis; M19.90 Unspecified osteoarthritis, unspecified site; G47.33 Obstructive sleep apnea (adult) (pediatric); N39.3 Stress incontinence (female) (male); Z87.891 Personal history of nicotine dependence; Z82.49 Family history of ischemic heart disease and other diseases of the circulatory system; Z90.79 Acquired absence of other genital organ(s); Z79.899 Other long term (current) drug therapy
CPT/HCPCS: 96372; 99282; J1885

== ENCOUNTER → 2017-05-24 | Outpatient (RCR) | payer OTHER ==
[~2017-05-24] MED LIST changes: +MYRB50TA; +PERC7.5T11 PO; +TOPI25TA10
== END ==
LOC: M PT 05-10 10:17
PROVIDERS: ATTEND Orthopaedic Surgery
DX: Z51.89 Encounter for other specified aftercare (principal); M51.36 Other intervertebral disc degeneration, lumbar region
CPT/HCPCS: 97110; 97140; 97162; G0283

== ENCOUNTER → 2017-06-08 | Outpatient (CLI) | payer OTHER ==
--- NOTE | 2017-06-08 09:43 | REP ---
MRI LUMBAR SPINE WITHOUT CONTRAST: 06/08/2017 COMPARISON: 01/17/2016, 10/26/2014. CLINICAL HISTORY: Low back pain. TECHNIQUE: Sagittal T1, T2 STIR images with axial T1 and T2 sequences. FINDINGS: The normal sagittal lordosis is maintained. Vertebral body heights and marrow signal are grossly intact. There are some mild discogenic changes at the L3-4 level with marked disc space narrowing at L3-4, L5-S1, only slightly less at L4-5 . The disc heights at L2-3 and above were maintained. Disc water signal is diminished at L2-3 and all levels below, at least partly preserved at L1-2 and T12-L1. Conus terminates at T12-L1. At T12-L1, no disc bulge herniation and no spinal or foraminal stenosis. Hemangioma at the L1 and L4 vertebral bodies noted. At L1-2, there is a broad-based disc bulge with left paracentral disc protrusion extending into the foramen as on the previous study. Ligamentum flavum and facet hypertrophy are noted. This causes crowding of the nerve roots and minimal central canal stenosis. The left S1 nerve root is displaced posteriorly by the disc protrusion. No L1 nerve root compression on either side of the foramen. At L2-3, there is a broad-based disc bulge. Hypertrophic facet change and ligamentum flavum hypertrophy and flattening of the ventral thecal sac is noted. Cross-sectional area of the canal is somewhat diminished and crowding of the nerve roots. Foramina grossly adequate. At L3-4, there is broad-based disc bulge with ligamentum flavum and facet hypertrophy. Some central canal stenosis with crowding of nerve roots due to these combined factors. Foramina are adequate with the L3 nerve roots without compression. At L4-5, there is broad-based disc bulge with ligamentum and facet hypertrophy. Grade 1 anterolisthesis of 5-6 mm of L4 on L5 and this is unchanged. There is spondylolysis. This is felt related to facet arthritis. Some loss of perineural fat without definite nerve root compression. At L5-S1, some mild broad-based disc bulge flattening ventral thecal sac. Some facet hypertrophic change. No central canal stenosis. Foramina without encroachment. IMPRESSION: 1. Minimal stenosis at the L1-2 and L2-3 levels due to combined factors. This is stable. 2. Central canal stenosis at L3-4 due to combined factors without foraminal encroachment. 3. Central canal mild stenosis with grade 1 spondylolisthesis of L4 on L5 unchanged and felt due to facet hypertrophy. All of this also stable. 4. The L5-S1 disc bulge abutting the thecal sac is unchanged. No significant central canal or foraminal stenosis, compression. Stable exam overall. Signed by Raymond Chun MD 06/08/2017 03:42 P
== END ==
LOC: M PLARAD 07:34
PROVIDERS: ATTEND Physician Assistant
DX: M51.36 Other intervertebral disc degeneration, lumbar region (principal)

== ENCOUNTER 2017-06-12 13:33 | Outpatient (RCR) | payer OTHER | END 2017-06-23 | LOC: M PT 13:33 | PROVIDERS: ATTEND Orthopaedic Surgery | DX: Z51.89 Encounter for other specified aftercare (principal); M51.36 Other intervertebral disc degeneration, lumbar region | CPT/HCPCS: 97010; 97110; 97140; G0283 ==

== ENCOUNTER → 2017-06-25 | Outpatient (REF) | payer OTHER | LOC: M LAB REF 09:08 | PROVIDERS: ATTEND Physician Assistant | DX: R30.0 Dysuria (principal) ==

== ENCOUNTER → 2017-09-10 | Outpatient (CLI) | payer OTHER ==
--- NOTE | 2017-09-10 09:28 | REP ---
MRI cervical spine without contrast: History: Neck pain. Left arm weakness times 6 months. The patient is status post cervical fusion. Comparison radiographs: July 22, 2014 and February 29, 2016. Technique: Sagittal and axial T1 and T2-weighted scans are acquired in the usual fashion with and without fat saturation. Sequences include spin echo, turbo spin-echo, and STIR imaging sequences. MRI findings: There is straightening and slight reversal of the normal cervical lordosis. There is diffuse degenerative disc disease in the cervical spine. There is magnetic field susceptibility artifact in the ventral aspect of the cervical spine. The patient is status post ventral discectomy and fusion plating across C5-C7 levels. Craniocervical junction is unremarkable. Cervical cord is normal in coarse, caliber and signal intensity on T1 and T2-weighted scans. Axial and sagittal images at the C2-3 level show no evidence of disc herniation. There is minimal disc bulging. At C3-C4, there is diffuse disc bulging and posterior osteophytic ridging. Bilateral uncovertebral spurring is seen right more so than left. The ventral CSF is effaced. No central canal stenosis is seen. At C4-5, there is moderate disc bulging and posterior osteophytic ridging. Moderate bilateral uncovertebral spurring is seen producing neural foraminal encroachment. There is mild central canal stenosis at C4-5. Mid sagittal AP dimension of the thecal sac is 8 mm. At C6-7, there is no evidence of recurrent disc herniation. There is central canal stenosis mild in degree at C6-7. AP diameter of the thecal sac in the midline at this level is 8 mm. At C7-T1, there is no evidence of neural foraminal narrowing of disc protrusion. No cord compression is seen. There is mild central disc bulging at T3-4 noted incidentally without cord compression. Impression: Degenerative spondylosis changes. Status post C5-C7 ventral discectomy and fusion. Degenerative disc disease at C4-5 with bilateral neural foraminal narrowing from uncovertebral spurring and mild central canal stenosis. Signed by Hermilo Garvey MD 09/10/2017 04:08 P
--- NOTE | 2017-09-10 09:46 | REP ---
MRI brain without contrast: History: Ataxic gait. 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 Comparison MRI study is from January 12, 2014. Technique: Axial and sagittal imaging planes are utilized for T1 and T2-weighted scans. Sequences include spin-echo, fast spin echo, FLAIR, and diffusion weighted sequences. MRI findings: Bony calvarium remains intact. Craniocervical junction and upper cervical cord are normal in appearance. There is no MR evidence of significant paranasal sinus disease. No intraorbital abnormality is seen. The deep facial and skull base soft tissues are unremarkable and symmetric. No vascular abnormality is seen. No ventricular dilation is seen. Diffusion weighted scans show no evidence to suggest acute ischemia or other cause of restricted diffusion. No extra-axial fluid collection, mass or infarction is seen. There are multiple foci of nonspecific T2 hyperintensity in the subcortical and periventricular white matter of the supratentorial brain bilaterally. These are unchanged from the 2014 study. No new lesion is seen. No corresponding T1 hypointensity is seen. Impression: Multiple T2 hyperintense foci again seen unchanged from the 2014 study. These are nonspecific as previously described. No new or acute intracranial lesion. Signed by Hermilo Garvey MD 09/10/2017 04:08 P
== END ==
LOC: M PLARAD 07:55
PROVIDERS: ATTEND Psychiatry & Neurology Neurology
DX: I63.09 Cerebral infarction due to thrombosis of other precerebral artery (principal); R26.0 Ataxic gait; M47.12 Other spondylosis with myelopathy, cervical region; M48.02 Spinal stenosis, cervical region; R20.2 Paresthesia of skin; Z98.1 Arthrodesis status

== ENCOUNTER → 2017-09-10 | Outpatient (CLI) | payer OTHER ==
--- NOTE | 2017-09-11 06:08 | ECGEPIP ---
Stationary ECG Study [facility] Test Date: 2017-09-10 Pat Name: KENROY CUEVAS Department: Room: - Gender: F Supervisor Word Processing: MAYE : 1965 Requested By: [employer] Order Number: [id number] Reading MD: Joseph Meneses Measurements Intervals [place] Rate: 71 P: 48 WI: 151 QRS: 36 QRSD: 95 T: 24 QT: 377 QTc: 410 Interpretive Statements SINUS RHYTHM Electronically Signed On 09-11-2017 6:08:26 EST by Joseph Meneses
== END ==
LOC: M EKG 09:11
PROVIDERS: ATTEND Orthopaedic Surgery
DX: M75.42 Impingement syndrome of left shoulder (principal)

== ENCOUNTER → 2017-10-09 | Outpatient (REF) | payer OTHER ==
[2017-10-09 21:07] LABS: AMORPHOUS SEDIMENT SMALL (NEGATIVE); APPEARANCE, URINE CLOUDY (CLEAR); BACTERIA, URINE AUTO 3+ (NEGATIVE); BILIRUBIN, URINE AUTO NEGATIVE (NEGATIVE); BLOOD, URINE BLOOD 1+ (NEGATIVE); COLOR, URINE YELLOW (YELLOW); GLUCOSE, URINE (UA) AUTO NEGATIVE (NEGATIVE); KETONE, URINE AUTO NEGATIVE (NEGATIVE); LEUKOCYTE ESTERASE, URINE AUTO 3+ (NEGATIVE); MUCUS, URINE SMALL (NEGATIVE); NITRITE, URINE AUTO NEGATIVE (NEGATIVE); PROTEIN, URINE AUTO NEGATIVE (NEGATIVE); RBC, URINE AUTO 6 /HPF (0-3); SQUAMOUS EPITHELIAL CELL UR AU 0 /HPF (0-6); UROBILINOGEN, URINE AUTO 0.2 mg/dL (0.0-2.0); WBC, URINE AUTO TNTC /HPF (0-3)
== END ==
LOC: M LAB REF 11:36
DX: N39.0 Urinary tract infection, site not specified (principal)

== ENCOUNTER 2017-10-16 09:22 | Outpatient (RCR) | payer OTHER | END 2017-10-24 | LOC: M PT 09:22 | DX: Z51.89 Encounter for other specified aftercare (principal); M25.512 Pain in left shoulder ==

== ENCOUNTER 2017-10-30 09:01 | Outpatient (RCR) | payer OTHER | END 2017-11-21 | LOC: M PT 09:01 | DX: Z51.89 Encounter for other specified aftercare (principal); M25.512 Pain in left shoulder ==

== ENCOUNTER → 2017-11-15 | Outpatient (REF) | payer OTHER | LOC: M LAB REF 13:03 | DX: J11.1 Influenza due to unidentified influenza virus with other respiratory manifestations (principal) ==

== ENCOUNTER → 2017-11-21 | Outpatient (CLI) | payer OTHER ==
[2017-11-21 13:29] LABS: FREE T4 0.89 NG/DL (0.76-1.46)
== END ==
LOC: M WUC 09:18
DX: E03.9 Hypothyroidism, unspecified (principal)
CPT/HCPCS: 84443

== ENCOUNTER → 2018-01-09 | Outpatient (REF) | payer OTHER ==
[2018-01-09 18:06] LABS: APPEARANCE, URINE CLEAR (CLEAR); BACTERIA, URINE AUTO NEGATIVE (NEGATIVE); BILIRUBIN, URINE AUTO NEGATIVE (NEGATIVE); BLOOD, URINE BLOOD NEGATIVE (NEGATIVE); COLOR, URINE YELLOW (YELLOW); GLUCOSE, URINE (UA) AUTO NEGATIVE (NEGATIVE); KETONE, URINE AUTO NEGATIVE (NEGATIVE); LEUKOCYTE ESTERASE, URINE AUTO NEGATIVE (NEGATIVE); MUCUS, URINE SMALL (NEGATIVE); NITRITE, URINE AUTO NEGATIVE (NEGATIVE); PROTEIN, URINE AUTO NEGATIVE (NEGATIVE); RBC, URINE AUTO 0 /HPF (0-3); SPECIFIC GRAVITY URINE AUTO 1.012 (1.002-1.035); SQUAMOUS EPITHELIAL CELL UR AU 0 /HPF (0-6); UROBILINOGEN, URINE AUTO 0.2 mg/dL (0.0-2.0); WBC, URINE AUTO 0 /HPF (0-3)
== END ==
LOC: M SMT 17:00
DX: R39.15 Urgency of urination (principal); R35.0 Frequency of micturition
CPT/HCPCS: 81001

== ENCOUNTER → 2018-01-21 | Outpatient (CLI) | payer OTHER | LOC: M PLARAD 09:05 | DX: M19.012 Primary osteoarthritis, left shoulder (principal) | CPT/HCPCS: 73221 ==

== ENCOUNTER 2018-02-22 13:32 | Day surgery (SDC) | payer OTHER ==
[2018-02-22] MEDS ORDERED: NS 1,000 ML IV (14:45)
[2018-02-22] MEDS ORDERED: fentaNYL 100 MCG/2 ML INJECTION (J3010) As Ordered (15:27)
[2018-02-22] MEDS ORDERED: PROPOFOL 200 MG/20 ML VIAL As Ordered (15:28)
[2018-02-22] MEDS ORDERED: LIDOCAINE 2% INJ 100 MG/5 ML SDV (FOR ANES.) As Ordered (15:28)
== END 2018-02-22 16:08 | disposition home or self-care (01) ==
LOC: M OPP 16:08
DX: R13.13 Dysphagia, pharyngeal phase (principal); F45.8 Other somatoform disorders; G47.30 Sleep apnea, unspecified; E03.9 Hypothyroidism, unspecified; K21.9 Gastro-esophageal reflux disease without esophagitis; M12.9 Arthropathy, unspecified; F41.9 Anxiety disorder, unspecified; F32.9 Major depressive disorder, single episode, unspecified; N32.81 Overactive bladder; Z79.899 Other long term (current) drug therapy; Z91.89 Other specified personal risk factors, not elsewhere classified; Z86.39 Personal history of other endocrine, nutritional and metabolic disease
CPT/HCPCS: 43235

== ENCOUNTER → 2018-02-22 | Outpatient (REF) | payer OTHER | LOC: M SFHCWAGY 08:40 | DX: Z01.419 Encounter for gynecological examination (general) (routine) without abnormal findings (principal); N95.2 Postmenopausal atrophic vaginitis ==

== ENCOUNTER → 2018-02-22 | Outpatient (CLI) | payer OTHER | LOC: M WHC 08:17 | DX: Z12.31 Encounter for screening mammogram for malignant neoplasm of breast (principal); Z78.0 Asymptomatic menopausal state; Z80.42 Family history of malignant neoplasm of prostate; Z80.3 Family history of malignant neoplasm of breast | CPT/HCPCS: 77067 ==

== ENCOUNTER 2018-05-05 19:33 | Emergency (ER) | payer OTHER ==
[2018-05-05] MEDS ORDERED: KETOROLAC 30 MG/ML VIAL (J1885) As Ordered ×2 (21:09)
[2018-05-05] MEDS: CYCLOBENZAPRINE 10 MG TAB PO ×4 (21:14→22:08)
[2018-05-05] MEDS: KETOROLAC 60 MG/2 ML VIAL (J1885) IM ×2 (21:15)
== END 2018-05-05 22:07 | disposition home or self-care (01) ==
LOC: M ED 19:33
DX: S39.012A Strain of muscle, fascia and tendon of lower back, initial encounter (principal)
CPT/HCPCS: J1885

== ENCOUNTER → 2018-06-20 | Outpatient (CLI) | payer OTHER ==
[2018-06-20 13:51] LABS: FREE T4 0.98 NG/DL (0.76-1.46)
== END ==
LOC: M WUC 10:15
DX: E03.9 Hypothyroidism, unspecified (principal)
CPT/HCPCS: 84443

== ENCOUNTER 2018-07-23 11:39 | Emergency (ER) | payer OTHER ==
[2018-07-23] MEDS: IBUPROFEN 600 MG TAB PO (12:56)
[2018-07-23] MEDS: traMADol 50 MG TAB PO (12:56)
== END 2018-07-23 14:03 | disposition home or self-care (01) ==
LOC: M ED 11:39
DX: S83.92XA Sprain of unspecified site of left knee, initial encounter (principal); X58.XXXA Exposure to other specified factors, initial encounter; Y92.098 Other place in other non-institutional residence as the place of occurrence of the external cause; M17.12 Unilateral primary osteoarthritis, left knee; M85.862 Other specified disorders of bone density and structure, left lower leg; M54.5 Low back pain; I10 Essential (primary) hypertension; K21.9 Gastro-esophageal reflux disease without esophagitis
CPT/HCPCS: 73564

== ENCOUNTER → 2018-08-02 | Outpatient (CLI) | payer OTHER | LOC: M PLARAD 14:42 | DX: M25.552 Pain in left hip (principal) | CPT/HCPCS: 73721 ==

== ENCOUNTER → 2018-08-26 | Outpatient (CLI) | payer OTHER ==
[~2018-08-26] MED LIST changes: -BUPR75TA5 PO; -GABA600T PO; -IBUP600T; -LEVO112T25 PO; -LEVO200T6; -LISI10TA4 PO; -LORA10TA2 PO; -MYRB50TA; -OMEP40CA2 PO; -PERC5TAB12 PO; -PERC7.5T11 PO; +PROHANCE 279.3MG/ML 15ML VIAL (A9576) As Ordered; +PROHANCE 279.3MG/ML 5ML VIAL (A9576) As Ordered; -TOPI25TA10; -TYLENOL #3; -VESICARE; -fluticasone spray; -oxybutynin OR; -tylenol OR
== END ==
LOC: M RAD 09:25
DX: Z15.89 Genetic susceptibility to other disease (principal); Z91.89 Other specified personal risk factors, not elsewhere classified
CPT/HCPCS: A9576

== ENCOUNTER 2018-09-03 14:21 | Emergency (ER) | payer OTHER ==
[2018-09-03] MEDS: diazePAM 5 MG TAB PO (17:35)
[2018-09-03] MEDS: dexameTHASONE 20 MG/5 ML VIAL (J1100) IM (17:36)
[2018-09-03] MEDS: KETOROLAC 60 MG/2 ML VIAL (J1885) IM (17:36)
[2018-09-03] MEDS: NORCO, ANEXSIA 5/325MG TABLET (HYDROcodone/ACETAMINOPHEN) PO (17:36)
== END 2018-09-03 18:36 | disposition home or self-care (01) ==
LOC: M ED 14:21
DX: G89.29 Other chronic pain (principal); M54.5 Low back pain; I10 Essential (primary) hypertension; K21.9 Gastro-esophageal reflux disease without esophagitis; F41.1 Generalized anxiety disorder; Z87.891 Personal history of nicotine dependence
CPT/HCPCS: J1100

== ENCOUNTER → 2018-09-13 | Outpatient (CLI) | payer OTHER ==
[~2018-09-13] MED LIST changes: +BUPR75TA5 PO; +CITA20TA4; +CYCL10TA PO; +GABA-845 PO; +GABA600T4 PO; +IBUP-1022 PO; +IBUP600T; +KETO10TAB PO; +LEVO112T25 PO; +LEVO200T6; +LEVO88TA3; +LISI-538; +LISI10TA4 PO; +LORA-243; +LORA-243 PO; +MEDR4PAK PO; +MYRB50TA; +NORCOTAB PO; +OMEP40CA2; +OMEP40CA2 PO; +PERC5TAB12 PO; +PERC7.5T11 PO; -PROHANCE 279.3MG/ML 15ML VIAL (A9576) As Ordered; -PROHANCE 279.3MG/ML 5ML VIAL (A9576) As Ordered; +TOPI25CA PO; +TOPI25TA10; +TYLENOL #3; +VALI5TAB PO; +VENTAER; +VESICARE; +fluticasone spray; +oxybutynin OR; +tylenol OR
--- NOTE | 2018-09-18 10:39 | REP ---
MRI LUMBAR SPINE WITHOUT CONTRAST: HISTORY: Low back pain. Radiating down bilateral lower extremities. Comparison MRI lumbar spine study: June 08, 2017 TECHNIQUE: Sagittal and axial T1- and T2-weighted scans are acquired in the usual fashion with and without fat saturation. Sequences include spin echo, turbo spin-echo, and STIR imaging sequences. MRI FINDINGS: Lumbar vertebral body heights are preserved. Cortical and medullary bone signal intensity are normal. There is no evidence of spondylolysis. There is a degenerative grade 1, L4-5 spondylolisthesis measuring 4 mm, unchanged from prior study. This is due to degenerative disc and osteoarthritic facet disease. There is diffuse disc bulging. Mild central canal stenosis is present at L4-5. There is minimal neural foraminal encroachment bilaterally. These findings are stable. At the L5-S1 level, there is mild facet hypertrophy present bilaterally. Minimal diffuse disc bulging is present. No neural foraminal narrowing or central canal stenosis is seen. At L3-4, there is mild to moderate central canal stenosis due to diffuse disc bulging, ligamentum flavum and facet hypertrophy. The degree of central canal stenosis and disc bulging is unchanged. There is right-sided neural foraminal narrowing due to disc bulging and facet hypertrophy. This appears to be essentially unchanged as well. At L2-3, there is diffuse disc bulging, mild in degree. There is mild central canal stenosis due to developmentally short pedicles along with ligamentum flavum and facet hypertrophy and diffuse disc bulging. This is unchanged from the May 2017 prior study. Neural foramina are adequate. At L1-2, there is a left posterior moderate-sized focal disc protrusion effacing the left ventral lateral margin of the thecal sac and contributing to left neural foraminal narrowing. This is unchanged. There is some facet hypertrophy bilaterally as before. A small hemangioma is present at the L1 level. At T12-L1, there is mild central disc bulging. The conus is unremarkable and is present at this level. No extra vertebral abnormality is observed. Normal caliber aorta. IMPRESSION: Degenerative spondylosis changes as above, stable from the June 08, 2017 study. A left posterior disc protrusion is again noted at L1-2. A mild grade 1 degenerative L4-5 spondylolisthesis is noted. Central canal stenosis is noted at L3-4. Electronically Signed by Hermilo Garvey MD 09/18/2018 11:08 A
== END ==
LOC: M PLARAD 13:47
PROVIDERS: ATTEND Physician Assistant
DX: M54.5 Low back pain (principal)

== ENCOUNTER → 2018-11-01 | Outpatient (CLI) | payer OTHER ==
--- NOTE | 2018-11-01 18:53 | REP ---
MRI LEFT KNEE: TECHNIQUE: Axial proton density fat saturation, sagittal proton density T2 STIR, water excitation, coronal proton density, proton density fat saturation. There is a complex tear of the posterior horn of the medical meniscus which extends into the body of the meniscus. The lateral meniscus appears intact. The cruciate and Lateral collateral ligaments are intact. There is mild ill-defined high signal involving the medial collateral ligaments suggesting a sprain or partial tear. Extensor mechanism is intact. Non-specific edema is seen anteriorly to the patella and patellar tendon. There is mild to moderate diffuse chondromalacia of the patella. There is moderate diffuse chondromalacia of the medial femoral condyle and medial tibial plateau with subchondral marrow edema. There is a moderate joint effusion. There is a suprapatellar plica. IMPRESSION: Complex tear posterior horn medal meniscus. Sprain or partial tear medial collateral ligament. Mild to moderate diffuse chondromalacia of the patella. Moderate chondromalacia of the medial femoral condyle and tibial plateau with associated subchondral marrow edema. Moderate joint effusion. Suprapatellar plica. Electronically Signed by Raymundo Reyes MD 11/01/2018 07:47 P
== END ==
LOC: M PLARAD 15:59
PROVIDERS: ATTEND Physician Assistant
DX: S83.422D Sprain of lateral collateral ligament of left knee, subsequent encounter (principal); W18.30XD Fall on same level, unspecified, subsequent encounter; Y92.009 Unspecified place in unspecified non-institutional (private) residence as the place of occurrence of the external cause

== ENCOUNTER → 2018-11-02 | Outpatient (REF) | payer OTHER ==
[2018-11-02 18:41] LABS: INFLUENZA A AMPLIFICATION NEGATIVE (NEGATIVE); INFLUENZA B AMPLIFICATION NEGATIVE (NEGATIVE)
== END ==
LOC: M LAB REF 09:34
PROVIDERS: ATTEND Physician Assistant Medical
DX: J11.1 Influenza due to unidentified influenza virus with other respiratory manifestations (principal)

== ENCOUNTER 2019-01-08 13:32 | Emergency (ER) | payer OTHER ==
[~2019-01-08] VITALS: Ht 160 cm; Wt 113.6 kg
[~2019-01-08 13:32] MED LIST changes: -CITA20TA4; +CITA20TA6; +HYDR-3715 PO; -NORCOTAB PO
[2019-01-08 13:33] VITALS: BP 143/65
[2019-01-08] MEDS ORDERED: KETO10TAB PO (15:21)
[2019-01-08] MEDS ORDERED: VALI5TAB PO (15:22)
[2019-01-08] MEDS ORDERED: METH4TAB28 PO (15:23)
== END 2019-01-08 15:48 | disposition home or self-care (01) ==
LOC: M ED 13:32
DX: M54.5 Low back pain (principal); I10 Essential (primary) hypertension; G47.30 Sleep apnea, unspecified; K21.9 Gastro-esophageal reflux disease without esophagitis; F41.9 Anxiety disorder, unspecified; Z79.899 Other long term (current) drug therapy

== ENCOUNTER → 2019-01-14 | Outpatient (CLI) | payer OTHER ==
[~2019-01-14] MED LIST changes: +METH4TAB28 PO
--- NOTE | 2019-01-14 21:42 | ECGEPIP ---
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
== END ==
LOC: M EKG 11:38
PROVIDERS: ATTEND Orthopaedic Surgery
DX: Z01.810 Encounter for preprocedural cardiovascular examination (principal)

== ENCOUNTER → 2019-01-23 | Outpatient (CLI) | payer OTHER ==
[2019-01-23 13:56] LABS: ALT/SGPT 28 U/L (12-78); BILIRUBIN,TOTAL 0.9 MG/DL (0.2-1.0); BLOOD UREA NITROGEN 15 MG/DL (7-18); CALCIUM LEVEL 9.1 MG/DL (8.5-10.1); CARBON DIOXIDE LEVEL 28 MEQ/L (21-32); CHLORIDE LEVEL 107 MEQ/L (98-107); CHOLESTEROL LEVEL 230 MG/DL (<200); CHOLESTEROL RISK RATIO 4.181 (<5); GLOMERULAR FILTRATION RATE > 60.0 (>51); GLUCOSE, FASTING 95 MG/DL (70-100); HDL CHOLESTEROL 55 MG/DL (>40); LDL CHOLESTEROL 143 MG/DL (<100); NON-HDL-C 175 MG/DL; POTASSIUM SERUM 4.5 MEQ/L (3.5-5.1); SODIUM LEVEL 141 MEQ/L (136-145); TOTAL PROTEIN 6.9 GM/DL (6.4-8.2); TRIGLYCERIDES LEVEL 160 MG/DL (<150)
== END ==
LOC: M WUC 09:24
PROVIDERS: ATTEND Nurse Practitioner Family
DX: E03.9 Hypothyroidism, unspecified (principal); I10 Essential (primary) hypertension

== ENCOUNTER 2019-02-19 14:38 | Outpatient (RCR) | payer OTHER | END 2019-02-21 | LOC: M PT 14:38 | PROVIDERS: ATTEND Orthopaedic Surgery | DX: S83.242D Other tear of medial meniscus, current injury, left knee, subsequent encounter (principal); W18.30XD Fall on same level, unspecified, subsequent encounter; Y92.009 Unspecified place in unspecified non-institutional (private) residence as the place of occurrence of the external cause ==

== ENCOUNTER → 2019-02-24 | Outpatient (CLI) | payer OTHER ==
--- NOTE | 2019-02-24 10:13 | REPMRS ---
Patient History The patient states she had a clinical breast exam in 02/2019. Patient is postmenopausal. Family history of breast cancer under age 50 in paternal aunt, breast cancer under age 50 in maternal aunt, prostate cancer at age 50 or over in father. Benign excisional biopsy of the right breast. No Hormone Replacement Therapy 3D TOMOSYNTHESIS WAS PERFORMED. Digital Woman Screen Mammo: February 24, 2019 - Exam #: [id number] Bilateral CC and MLO view(s) were taken. Technologist: Ruth Alexander, Technologist Prior study comparison: February 22, 2018, digital woman screen mammo performed at [facility]. February 22, 2017, digital woman screen mammo performed at [facility]. FINDINGS: There are scattered fibroglandular densities. There has been no change in the appearance of the mammogram from the prior studies. There is a mild amount of residual fibroglandular tissue which is fairly symmetric. There is no interval development of dominant mass, architectural distortion, or clustered microcalcification suggestive of malignancy. Assessment: BI-RADS/ACR category 1 mammogram. Negative Mammogram. Recommendation Routine screening mammogram in 1 year (for women over age 40). This mammogram was interpreted with the aid of an FDA-approved computer-aided dectection system. Electronically Signed By: Raymundo Reyes MD 02/24/19 101
== END ==
LOC: M WHC 08:09
PROVIDERS: ATTEND Nurse Practitioner Family
DX: Z12.31 Encounter for screening mammogram for malignant neoplasm of breast (principal); Z91.89 Other specified personal risk factors, not elsewhere classified; Z78.0 Asymptomatic menopausal state; Z80.3 Family history of malignant neoplasm of breast

== ENCOUNTER → 2019-04-30 | Outpatient (CLI) | payer OTHER ==
[~2019-04-30] MED LIST changes: -TOPI25CA PO; +TOPI25CA3 PO
[2019-04-30 14:00] LABS: FREE T4 0.93 NG/DL (0.76-1.46); THYROID STIMULATING HORMONE 1.3 uIU/ML (0.358-3.740)
== END ==
LOC: M WUC 10:28
PROVIDERS: ATTEND Internal Medicine Rheumatology
DX: M25.50 Pain in unspecified joint (principal)

== ENCOUNTER → 2019-06-24 | Outpatient (REF) | payer OTHER ==
[~2019-06-24] MED LIST changes: -LEVO88TA3; +LEVO88TA3 PO; -LISI-538; +LISI-538 PO; -LORA-243; -OMEP40CA2
[2019-06-24 21:51] LABS: APPEARANCE, URINE CLEAR (CLEAR); BACTERIA, URINE AUTO NEGATIVE (NEGATIVE); BILIRUBIN, URINE AUTO NEGATIVE (NEGATIVE); BLOOD, URINE BLOOD 1+ (NEGATIVE); COLOR, URINE STRAW (YELLOW); GLUCOSE, URINE (UA) AUTO NEGATIVE (NEGATIVE); KETONE, URINE AUTO NEGATIVE (NEGATIVE); LEUKOCYTE ESTERASE, URINE AUTO 3+ (NEGATIVE); NITRITE, URINE AUTO NEGATIVE (NEGATIVE); PROTEIN, URINE AUTO NEGATIVE (NEGATIVE); RBC, URINE AUTO 4 /HPF (0-3); SPECIFIC GRAVITY URINE AUTO 1.005 (1.002-1.035); SQUAMOUS EPITHELIAL CELL UR AU 0 /HPF (0-6); UROBILINOGEN, URINE AUTO 0.2 mg/dL (0.0-2.0); WBC, URINE AUTO 25 /HPF (0-3)
== END ==
LOC: M LAB REF 09:54
PROVIDERS: ATTEND Physician Assistant Medical
DX: N39.0 Urinary tract infection, site not specified (principal)

== ENCOUNTER 2019-06-26 08:06 | Day surgery (SDC) | payer OTHER ==
[~2019-06-26] VITALS: Ht 162.6 cm; Wt 106.5 kg
[2019-06-26] MEDS ORDERED: PROPOFOL 200 MG/20 ML VIAL As Ordered ONE ×2 (08:54→09:02)
[2019-06-26] MEDS ORDERED: NS 1,000 ML IV ONE (09:00)
--- NOTE | 2019-06-26 09:12 | ROOR ---
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 Procedure: Pre-Anesthesia Assessment: - The heart rate, respiratory rate, oxygen saturations, blood pressure, adequacy of pulmonary ventilation, and response to care were monitored throughout the procedure. The Colonoscope was introduced through the anus and advanced to the cecum, identified by appendiceal orifice and ileocecal valve. The colonoscopy was performed without difficulty. The patient tolerated the procedure well. The quality of the bowel preparation was adequate to identify polyps 6 mm and larger in size and fair. Findings: The perianal and digital rectal examinations were normal. A 5 mm polyp was found in the sigmoid colon. The polyp was sessile. The polyp was removed with a cold snare. Resection and retrieval were complete. The exam was otherwise normal throughout the examined colon. Impression: - Preparation of the colon was fair. - One 5 mm polyp in the sigmoid colon, removed with a cold snare. Resected and retrieved. - The exam was otherwise normal to the cecum. Recommendation: - Repeat colonoscopy in 5 years for surveillance. - Telephone endoscopist for pathology results in 2 weeks. - Await pathology results. Joseph Trimble MD Joseph TRIMBLE MD 06/26/2019 9:12:02 AM Electronically signed by Joseph TRIMBLE MD Number of Addenda: 0 Note Initiated On: 06/26/2019 8:48 AM Estimated Blood Loss: Estimated blood loss: none.
[2019-06-26 09:30] VITALS: BP 142/80
== END 2019-06-26 09:28 | disposition home or self-care (01) ==
LOC: M OPP 08:06
PROVIDERS: ATTEND Internal Medicine Gastroenterology
DX: Z15.89 Genetic susceptibility to other disease (principal); D12.5 Benign neoplasm of sigmoid colon; I10 Essential (primary) hypertension; E03.9 Hypothyroidism, unspecified; K21.9 Gastro-esophageal reflux disease without esophagitis; M19.90 Unspecified osteoarthritis, unspecified site; M54.89 Other dorsalgia; F41.9 Anxiety disorder, unspecified; F32.9 Major depressive disorder, single episode, unspecified; R06.83 Snoring; G47.30 Sleep apnea, unspecified; Z79.899 Other long term (current) drug therapy

== ENCOUNTER → 2019-09-05 | Outpatient (CLI) | payer OTHER ==
[~2019-09-05] MED LIST changes: -METH4TAB28 PO; +METH4TAB8 PO; -OMEP40CA2 PO; +OMEP40CA97 PO
--- NOTE | 2019-09-05 17:15 | REP ---
MRI cervical spine: 09/05/2019. Indication: Neck pain. Comparison: 09/10/2017. Technique: Multiplanar short and long TR sequences of the cervical spine were performed including post-gadolinium imaging. 20 ml of IV ProHance were administered. Findings: Surgical hardware and associated susceptibility artifact renders evaluation of the anatomy immediately adjacent to the hardware suboptimal. There is straightening of the cervical lordosis. No worrisome marrow or cord signal abnormalities are present. No pathologic gadolinium enhancement is detected. C2/C3: Right-sided uncovertebral and facet proliferation moderately narrows the right neural foramen. There is effacement of the ventral thecal sac. C3/C4: Diffuse disc osteophyte is present with mild narrowing of the spinal canal and bilateral neural foramina. C4/C5: Diffuse disc osteophyte complex is present with mild to moderate narrowing of the spinal canal and neural foramina bilaterally. C5/C6, C6/C7 and C7/T1: There is no focal disc herniation or significant spinal canal / neural foraminal narrowing. Impression: Multilevel degenerative and postoperative sequelae as described without significant spinal canal narrowing or cord compression. Electronically Signed by Moises Wallis DO 09/05/2019 05:06 P
== END ==
LOC: M PLARAD 15:18
PROVIDERS: ATTEND Physician Assistant
DX: M54.2 Cervicalgia (principal)

== ENCOUNTER → 2019-09-26 | Outpatient (CLI) | payer OTHER ==
[~2019-09-26] MED LIST changes: +E-Z-GAS II EFFERVESCENT PACKET (SODIUM BICARB./CITRIC ACID/SIMETHICONE) As Ordered ONE; +E-Z-HD 98% w/w 340GM SUSP BTL As Ordered ONE; +E-Z-PAQUE 96% w/w SUSP 176GM BTL As Ordered ONE
--- NOTE | 2019-09-26 18:53 | REP ---
Examination Requested: Esophagram Barium Swallow Reason For Exam/Comment: Heart burn , dysphasia Esophagram: The procedure was performed GEORGE Baldwin, under the direct supervision of Dr. Garvey. The images were reviewed with Dr. Garvey. A single PA chest x-ray is submitted as a banquet set up person film. There is no changes in the mediastinal silhouette since 11/16/2016. There is a cervical fusion plate now visualized. Liquid barium and gas producing granules were given in the erect position as well as liquid barium in the prone oblique position, in order to perform a double contrast esophagram examination. Oral and pharyngeal stages of the examination were unremarkable. Esophageal transport is efficient and there is no esophagitis, stricture, or mucosal ring noted. There is no hiatal hernia noted. Gastroesophageal reflux was not visualized throughout the course of the exam. Impression: 1. Unremarkable esophagram. 0.5 minutes of fluoroscopy time was utilized for this procedure. Some fluoroscopic images are performed with last image hold technology. These images require no additional radiation. Reviewed by GEORGE Dutta 09/26/2019 05:15 P Electronically Signed by Hermilo Garvey MD 09/26/2019 06:44 P
== END ==
LOC: M RAD 08:49
PROVIDERS: ATTEND Physician Assistant Medical
DX: R13.10 Dysphagia, unspecified (principal)

== ENCOUNTER → 2019-10-17 | Outpatient (CLI) | payer OTHER ==
[~2019-10-17] MED LIST changes: -E-Z-GAS II EFFERVESCENT PACKET (SODIUM BICARB./CITRIC ACID/SIMETHICONE) As Ordered ONE; -E-Z-HD 98% w/w 340GM SUSP BTL As Ordered ONE; -E-Z-PAQUE 96% w/w SUSP 176GM BTL As Ordered ONE
--- NOTE | 2019-10-18 07:02 | REP ---
CT MAXILLOFACIAL WITHOUT CONTRAST: 10/17/2019. Comparison: 11/09/2014. Clinical history: Chronic pansinusitis. Findings: Standard noncontrast technique utilized with coronal bone window reconstructions. There are screws and mesh from a repair of the left orbital floor fracture. Appearance unchanged from the prior study. There is no mucosal thickening in the frontal, ethmoid, sphenoid or maxillary sinuses. The ostiomeatal complexes are patent bilaterally. The infundibuli were intact. Hiatus semilunaris intact. There is deviation of the septum to the left and a spur arising from that left side of the nasal septum best seen on both coronal and axial images. Visualized portions of mastoids were intact. Nasal bones intact. Nasal spine of the maxilla unremarkable. Remainder the orbits, skull base, middle and posterior cranial fossa without acute finding. Impression: 1. Status post left orbital floor fracture repair with mesh and three screws, intact and unchanged. Orbits and contents symmetric and without acute finding. 2. No visible sinus mucosal abnormalities, opacification or destructive lesion. 3. Deviation of the septum towards the left with a septal spur on the left side. The OMCs, infundibuli and hiatus semilunaris intact. No acute finding. Electronically Signed by Raymond Chun MD 10/18/2019 07:47 P
== END ==
LOC: M RAD 18:02
PROVIDERS: ATTEND Otolaryngology
DX: J32.4 Chronic pansinusitis (principal)

== ENCOUNTER → 2019-10-27 | Outpatient (REF) | payer OTHER ==
[2019-10-27 13:18] LABS: INFLUENZA A AMPLIFICATION POSITIVE (NEGATIVE); INFLUENZA B AMPLIFICATION NEGATIVE (NEGATIVE)
[2019-10-27 13:39] LABS: APPEARANCE, URINE CLEAR (CLEAR); BACTERIA, URINE AUTO NEGATIVE (NEGATIVE); BILIRUBIN, URINE AUTO NEGATIVE (NEGATIVE); BLOOD, URINE BLOOD 2+ (NEGATIVE); COLOR, URINE YELLOW (YELLOW); GLUCOSE, URINE (UA) AUTO NEGATIVE (NEGATIVE); KETONE, URINE AUTO TRACE mg/dL (NEGATIVE); LEUKOCYTE ESTERASE, URINE AUTO TRACE (NEGATIVE); MUCUS, URINE SMALL (NEGATIVE); NITRITE, URINE AUTO NEGATIVE (NEGATIVE); PROTEIN, URINE AUTO NEGATIVE (NEGATIVE); RBC, URINE AUTO 10 /HPF (0-3); SPECIFIC GRAVITY URINE AUTO 1.023 (1.002-1.035); SQUAMOUS EPITHELIAL CELL UR AU 2 /HPF (0-6); UROBILINOGEN, URINE AUTO 0.2 mg/dL (0.0-2.0); WBC, URINE AUTO 2 /HPF (0-3)
== END ==
LOC: M LAB REF 12:32
PROVIDERS: ATTEND Physician Assistant Medical
DX: N39.0 Urinary tract infection, site not specified (principal)

== ENCOUNTER → 2019-11-04 | Outpatient (CLI) | payer OTHER ==
[2019-11-04 12:58] LABS: ALBUMIN 4.1 GM/DL (3.2-5.2); ALT/SGPT 27 U/L (12-78); BILIRUBIN,TOTAL 0.8 MG/DL (0.2-1.0); BLOOD UREA NITROGEN 10 MG/DL (7-18); CALCIUM LEVEL 9.2 MG/DL (8.5-10.1); CARBON DIOXIDE LEVEL 30 MEQ/L (21-32); CHLORIDE LEVEL 106 MEQ/L (98-107); CHOLESTEROL LEVEL 197 MG/DL (<200); FREE T4 1.11 NG/DL (0.76-1.46); GLOMERULAR FILTRATION RATE > 60.0 (>51); GLUCOSE, FASTING 93 MG/DL (70-100); HDL CHOLESTEROL 49 MG/DL (>40); LDL CHOLESTEROL 105 MG/DL (<100); NON-HDL-C 148 MG/DL; POTASSIUM SERUM 4.3 MEQ/L (3.5-5.1); SODIUM LEVEL 141 MEQ/L (136-145); TRIGLYCERIDES LEVEL 217 MG/DL (<150)
== END ==
LOC: M WUC 09:20
PROVIDERS: ATTEND Nurse Practitioner Family
DX: I10 Essential (primary) hypertension (principal); E03.9 Hypothyroidism, unspecified

== ENCOUNTER 2019-11-20 10:59 | Emergency (ER) | payer OTHER ==
[~2019-11-20] VITALS: Ht 160 cm; Wt 107.9 kg
[~2019-11-20 10:59] MED LIST changes: -ALBU8.5H
[2019-11-20] MEDS ORDERED: ALBU8.5H (11:16)
[2019-11-20] MEDS ORDERED: ASPIRIN 81 MG CHEW TABLET PO ONE (11:30)
[2019-11-20 11:37] LABS: BASO % 0.5 % (0.0-1.0); EOS # 0.2 10^3/uL (0.0-0.5); EOS % 3.3 % (0.0-3.0); HEMATOCRIT 39.8 % (36.0-47.0); HEMOGLOBIN 12.9 g/dl (12.0-15.5); LYMPH # 1.5 10^3/uL (1.5-5.0); LYMPH % 26.6 % (24.0-44.0); MEAN CORPUSCULAR HEMOGLOBIN 30.6 pg (27.0-33.0); MEAN CORPUSCULAR HGB CONC 32.4 g/dl (32.0-36.5); MEAN CORPUSCULAR VOLUME 94.3 fl (80.0-96.0); MONO # 0.4 10^3/uL (0.0-0.8); MONO % 6.4 % (0.0-5.0); NEUTROPHILS # 3.5 10^3/uL (1.5-8.5); NEUTROPHILS % 62.8 % (36.0-66.0); PLATELET COUNT, AUTOMATED 276 10^3/uL (150-450); RED BLOOD COUNT 4.22 10^6/uL (4.00-5.40); WHITE BLOOD COUNT 5.5 10^3/uL (4.0-10.0)
--- NOTE | 2019-11-20 11:52 | REP ---
Portable chest x-ray: Single view. History: Chest pain. Comparison chest x-ray: November 16, 2016. Findings: The patient is status post ventral discectomy and fusion plating in the lower cervical spine. The lungs are symmetrically aerated and clear. The pleural angles are sharp. Heart size is normal. Pulmonary vasculature is not increased. No significant bony abnormality. Impression: No active disease. Status post cervical spine fusion. Electronically Signed by Hermilo Garvey MD 11/20/2019 11:44 A
[2019-11-20 12:26] LABS: ALBUMIN 4.2 GM/DL (3.2-5.2); ALT/SGPT 27 U/L (12-78); BILIRUBIN,DIRECT 0.2 MG/DL (0.0-0.2); BILIRUBIN,TOTAL 0.9 MG/DL (0.2-1.0); BLOOD UREA NITROGEN 16 MG/DL (7-18); CALCIUM LEVEL 9.1 MG/DL (8.5-10.1); CARBON DIOXIDE LEVEL 28 MEQ/L (21-32); CHLORIDE LEVEL 107 MEQ/L (98-107); CK-MB VALUE MASS < 1.0 NG/ML (<3.6); CPK CREATINE PHOSPHOKINASE 151 U/L (26-192); CREATININE FOR GFR 0.77 MG/DL (0.55-1.30); GLOMERULAR FILTRATION RATE > 60.0 (>51); GLUCOSE, FASTING 96 MG/DL (70-100); LIPASE 115 U/L (73-393); MB/CK RELATIVE INDEX 0.66 (< OR =4); POTASSIUM SERUM 4.4 MEQ/L (3.5-5.1); SODIUM LEVEL 140 MEQ/L (136-145); TOTAL PROTEIN 7.5 GM/DL (6.4-8.2); TROPONIN I < 0.02 NG/ML (< 0.10)
--- NOTE | 2019-11-20 13:20 | REP ---
Right upper quadrant sonography: History: Epigastric pain. Rule out: The cystitis. Chest pain. Comparison study: No comparison study. Findings: Scanning through the right upper quadrant of the abdomen demonstrates a normal sized, thin-walled gallbladder without evidence of stone or polyp. Question phrygian cap morphology at the fundus. Common bile duct is normal measuring 0.5 cm in greatest diameter. No focal liver lesion is seen. Liver size is normal. No pancreatic abnormality is observed. No right renal abnormality is seen. There is no evidence of ascites. The right kidney measures 12.2 x 4.2 x 4.5 cm. Impression: Negative right upper quadrant sonography. Electronically Signed by Hermilo Garvey MD 11/20/2019 01:12 P
[2019-11-20 14:52] LABS: CK-MB VALUE MASS < 1.0 NG/ML (<3.6); CPK CREATINE PHOSPHOKINASE 117 U/L (26-192); MB/CK RELATIVE INDEX 0.85 (< OR =4); TROPONIN I < 0.02 NG/ML (< 0.10)
[2019-11-20 15:30] VITALS: BP 143/79
--- NOTE | 2019-11-20 23:05 | ECGEPIP ---
[facility] - ED Test Date: 2019-11-20 Pat Name: KENROY CUEVAS Department: Room: - Gender: Female Tail Board Man: MALATHI : 1965 Requested By: Mikhail Gallagher Order Number: [id number] Reading MD: Joseph Meneses Measurements Intervals [place] Rate: 76 P: 51 [place]: 165 QRS: 16 QRSD: 93 T: 9 QT: 360 QTc: 406 Interpretive Statements SINUS RHYTHM Similar to tracing done 01-14-19 Electronically Signed on 11-20-2019 23:05:14 EST by Joseph Meneses
--- NOTE | 2019-11-20 23:16 | ECGEPIP ---
[facility] - ED Test Date: 2019-11-20 Pat Name: KENROY CUEVAS Department: Room: - Gender: Female [employer] Attendant: MALATHI : 1965 Requested By: Mikhail Gallagher Order Number: [id number] Reading MD: Joseph Meneses Measurements Intervals [place] Rate: 70 P: 57 [place]: 177 QRS: 21 QRSD: 93 T: -3 QT: 394 QTc: 427 Interpretive Statements SINUS RHYTHM NONSPECIFIC T-WAVE ABNORMALITY Similar to tracing done 11-16-16 Electronically Signed on 11-20-2019 23:15:54 EST by Joseph Meneses
== END 2019-11-20 16:24 | disposition home or self-care (01) ==
LOC: M ED 10:59
DX: R07.89 Other chest pain (principal); R42 Dizziness and giddiness; I10 Essential (primary) hypertension; E07.9 Disorder of thyroid, unspecified; G47.33 Obstructive sleep apnea (adult) (pediatric); F33.9 Major depressive disorder, recurrent, unspecified; F41.9 Anxiety disorder, unspecified; M19.90 Unspecified osteoarthritis, unspecified site; N30.10 Interstitial cystitis (chronic) without hematuria; Z99.89 Dependence on other enabling machines and devices; Z79.899 Other long term (current) drug therapy; Z79.890 Hormone replacement therapy

== ENCOUNTER → 2019-11-20 | Outpatient (REF) | payer OTHER ==
[~2019-11-20] MED LIST changes: +ALBU8.5H; +LEVO50TA5 PO
[2019-11-20 14:30] LABS: AMORPHOUS SEDIMENT LARGE (NEGATIVE); APPEARANCE, URINE TURBID (CLEAR); BACTERIA, URINE AUTO NEGATIVE (NEGATIVE); BILIRUBIN, URINE AUTO NEGATIVE (NEGATIVE); BLOOD, URINE BLOOD 1+ (NEGATIVE); COLOR, URINE YELLOW (YELLOW); GLUCOSE, URINE (UA) AUTO NEGATIVE (NEGATIVE); KETONE, URINE AUTO NEGATIVE (NEGATIVE); LEUKOCYTE ESTERASE, URINE AUTO TRACE (NEGATIVE); MUCUS, URINE SMALL (NEGATIVE); NITRITE, URINE AUTO NEGATIVE (NEGATIVE); PROTEIN, URINE AUTO NEGATIVE (NEGATIVE); RBC, URINE AUTO 0 /HPF (0-3); SQUAMOUS EPITHELIAL CELL UR AU 0 /HPF (0-6); UROBILINOGEN, URINE AUTO 0.2 mg/dL (0.0-2.0); WBC, URINE AUTO 0 /HPF (0-3)
== END ==
LOC: M SMT 13:41
PROVIDERS: ATTEND Nurse Practitioner Women's Health
DX: N32.81 Overactive bladder (principal)

== ENCOUNTER → 2019-12-26 | Outpatient (CLI) | payer MEDICARE, MEDICAID ==
[~2019-12-26] MED LIST changes: +ALBU8.5H; +CYCL-707 PO; -CYCL10TA PO
[2019-12-26 16:32] LABS: BASO % 0.6 % (0.0-1.0); EOS # 0.1 10^3/uL (0.0-0.5); EOS % 2.4 % (0.0-3.0); HEMATOCRIT 40.6 % (36.0-47.0); HEMOGLOBIN 12.9 g/dl (12.0-15.5); LYMPH # 1.4 10^3/uL (1.5-5.0); LYMPH % 25.5 % (24.0-44.0); MEAN CORPUSCULAR HEMOGLOBIN 29.9 pg (27.0-33.0); MEAN CORPUSCULAR HGB CONC 31.8 g/dl (32.0-36.5); MONO # 0.3 10^3/uL (0.0-0.8); NEUTROPHILS # 3.6 10^3/uL (1.5-8.5); NEUTROPHILS % 66.1 % (36.0-66.0); PLATELET COUNT, AUTOMATED 309 10^3/uL (150-450); RED BLOOD COUNT 4.32 10^6/uL (4.00-5.40); WHITE BLOOD COUNT 5.5 10^3/uL (4.0-10.0)
[2019-12-26 16:37] LABS: ALBUMIN 4.2 GM/DL (3.2-5.2); ALT/SGPT 27 U/L (12-78); AMYLASE 45 U/L (25-115); BILIRUBIN,TOTAL 0.9 MG/DL (0.2-1.0); BLOOD UREA NITROGEN 14 MG/DL (7-18); CALCIUM LEVEL 9.8 MG/DL (8.5-10.1); CARBON DIOXIDE LEVEL 30 MEQ/L (21-32); CHLORIDE LEVEL 104 MEQ/L (98-107); GLOMERULAR FILTRATION RATE > 60.0 (>51); GLUCOSE, FASTING 94 MG/DL (70-100); LIPASE 118 U/L (73-393); POTASSIUM SERUM 4.2 MEQ/L (3.5-5.1); SODIUM LEVEL 137 MEQ/L (136-145); TOTAL PROTEIN 7.4 GM/DL (6.4-8.2)
== END ==
LOC: M WUC 11:40
PROVIDERS: ATTEND Physician Assistant Medical
DX: R11.0 Nausea (principal)

== ENCOUNTER → 2020-01-08 | Outpatient (CLI) | payer MEDICARE, MEDICAID ==
[~2020-01-08] MED LIST changes: +E-Z-GAS II EFFERVESCENT PACKET (SODIUM BICARB./CITRIC ACID/SIMETHICONE) As Ordered ONE; +E-Z-HD 98% w/w 340GM SUSP BTL As Ordered ONE; +E-Z-PAQUE 96% w/w SUSP 176GM BTL As Ordered ONE
--- NOTE | 2020-01-08 15:55 | REP ---
Upper GI air contrast The procedure was performed under the direct supervision of Dr. Reyes. The images were reviewed with Dr. eRyes The global transportation manager film shows no organomegaly or pathological masses. The intestinal gas pattern is non-specific. Liquid barium and gas producing crystals were given in the erect position as well as liquid barium in the prone oblique position in order to perform a double contrast upper GI examination. The oral and pharyngeal stages of deglutition are unremarkable. During esophageal transport there are tertiary waves demonstrated. There is no esophagitis stricture or mucosal ring. There is a sliding type hiatal hernia. There is gastroesophageal reflux demonstrated to above the level of the robbie. The stomach real are normally outlined . The rugal folds are smooth and regular. There is no gastritis neoplasm or ulcer disease. The duodenal real are normally outlined . The mucosal folds are smooth and regular. There is no duodenitis pancreatitis peptic ulcer disease or neoplasm. The visualized portion of the proximal small bowel appears normal in course and caliber. Impression: 1. Tertiary waves. 2. There is a small sliding-type hiatal hernia. There is gastroesophageal reflux demonstrated to above the level of the robbie. 2.1 minutes of fluoro time was utilized for this procedure. Electronically Signed by GEORGE Delgado 01/08/2020 03:31 P Electronically Signed by Raymundo Reyes MD 01/08/2020 03:46 P
== END ==
LOC: M RAD 07:28
PROVIDERS: ATTEND Physician Assistant Medical
DX: R11.0 Nausea (principal); R10.13 Epigastric pain

== ENCOUNTER → 2020-01-27 | Outpatient (CLI) | payer MEDICARE, MEDICAID ==
[~2020-01-27] MED LIST changes: -E-Z-GAS II EFFERVESCENT PACKET (SODIUM BICARB./CITRIC ACID/SIMETHICONE) As Ordered ONE; -E-Z-HD 98% w/w 340GM SUSP BTL As Ordered ONE; -E-Z-PAQUE 96% w/w SUSP 176GM BTL As Ordered ONE
--- NOTE | 2020-01-27 10:57 | REP ---
CT ABDOMEN AND PELVIS WITHOUT CONTRAST: CT abdomen and pelvis performed without oral or IV contrast. Sagittal and coronal reconstruction images are performed. Visualized lung bases demonstrate mild fibrotic scarring. Liver and gallbladder are grossly unremarkable. The spleen is normal in size. The adrenal glands are normal. The pancreas is grossly unremarkable. Kidneys demonstrate no stone or hydronephrosis. There is mild atherosclerotic calcification of the abdominal aorta without aneurysm. There is no adenopathy. There is no free air or free fluid. There is no evidence of bowel wall thickening. The appendix is normal. There is sigmoid diverticulosis without acute diverticulitis. No pelvic mass is seen. Patient has had a hysterectomy. Urinary bladder is not well distended and not well evaluated. Just below the umbilicus, there is a midline anterior abdominal wall hernia. The aperture of the hernia in the anterior abdominal wall is 1.2 cm. The hernia sac measures 6 cm in diameter and contains noninflamed fat with no bowel. There is a right lateral abdominal wall hernia at about the same level, which is smaller in size. The aperture of the hernia is about 7 mm. The hernia sac is 2.9 cm and contains noninflamed fat. There are degenerative changes of the spine. IMPRESSION: Two anterior abdominal wall hernias noted as discussed in detail above, one in the midline just below the umbilicus and one at about the same level laterally on the right. Both contain noninflamed fat. Electronically Signed by Raymundo Reyes MD 01/27/2020 11:20 A
== END ==
LOC: M RAD 09:46
PROVIDERS: ATTEND Physician Assistant Medical
DX: R19.05 Periumbilic swelling, mass or lump (principal); I70.0 Atherosclerosis of aorta; K46.9 Unspecified abdominal hernia without obstruction or gangrene

== ENCOUNTER → 2020-02-20 | Outpatient (REF) | payer MEDICARE, MEDICAID ==
[~2020-02-20] MED LIST changes: +ACET-907 PO; +ARNU1INH IN
[2020-02-20 17:38] LABS: BLOOD UREA NITROGEN 12 MG/DL (7-18); CALCIUM LEVEL 9.5 MG/DL (8.5-10.1); CARBON DIOXIDE LEVEL 30 MEQ/L (21-32); CHLORIDE LEVEL 103 MEQ/L (98-107); CREATININE FOR GFR 0.79 MG/DL (0.55-1.30); GLOMERULAR FILTRATION RATE > 60.0 (>51); GLUCOSE, FASTING 112 MG/DL (70-100); POTASSIUM SERUM 4.1 MEQ/L (3.5-5.1); SODIUM LEVEL 139 MEQ/L (136-145)
== END ==
LOC: M SFHCPLAZ 14:41
PROVIDERS: ATTEND Family Medicine
DX: I10 Essential (primary) hypertension (principal)
CPT/HCPCS: 36415; 80048; G0463

== ENCOUNTER → 2020-02-26 | Outpatient (CLI) | payer MEDICARE, MEDICAID ==
--- NOTE | 2020-02-26 10:34 | REPMRS ---
Patient History The patient states she had a clinical breast exam in February 2020. Family history of breast cancer under age 50 in paternal aunt, breast cancer under age 50 in maternal aunt, prostate cancer at age 50 or over in father. Benign excisional biopsy of the right breast. No Hormone Replacement Therapy 3D TOMOSYNTHESIS WAS PERFORMED. The [facility] lifetime risk for breast cancer is 13.8%. VOLPARA DENSITY A. Digital Woman Screen Mammo: February 26, 2020 - Exam #: [id number] Bilateral CC and MLO view(s) were taken. Technologist: Tiarra Atkinson, Technologist Prior study comparison: February 24, 2019, bilateral digital woman screen mammo performed at [facility]. February 22, 2018, digital woman screen mammo performed at [facility]. FINDINGS: There are scattered fibroglandular densities. There has been no change in the appearance of the mammogram from the prior studies. There is a mild amount of residual fibroglandular tissue which is fairly symmetric. There is no interval development of dominant mass, architectural distortion, or clustered microcalcification suggestive of malignancy. Assessment: BI-RADS/ACR category 1 mammogram. Negative Mammogram. Recommendation Routine screening mammogram in 1 year (for women over age 40). This mammogram was interpreted with the aid of an FDA-approved computer-aided dectection system. Electronically Signed By: Raymundo Reyes MD 02/26/20 [id number]
== END ==
LOC: M WHC 08:23
PROVIDERS: ATTEND Nurse Practitioner Family
DX: Z01.419 Encounter for gynecological examination (general) (routine) without abnormal findings (principal); Z12.31 Encounter for screening mammogram for malignant neoplasm of breast; Z80.42 Family history of malignant neoplasm of prostate; Z86.018 Personal history of other benign neoplasm
CPT/HCPCS: 77063; 77067; G0101

== ENCOUNTER → 2020-03-02 | Outpatient (CLI) | payer MEDICARE, MEDICAID, OTHER | LOC: M LABSMTC 09:30 | PROVIDERS: ATTEND Anesthesiology | DX: Z03.818 Encounter for observation for suspected exposure to other biological agents ruled out (principal); Z11.59 Encounter for screening for other viral diseases | CPT/HCPCS: C9803; U0003 ==

== ENCOUNTER 2020-03-05 06:19 | Day surgery (SDC) | payer MEDICARE, MEDICAID ==
[~2020-03-05] VITALS: Ht 160 cm; Wt 107.0 kg
[~2020-03-05 06:19] MED LIST changes: +LR 1,000 ML IV ONE
[2020-03-05] MEDS ORDERED: MIDAZOLAM INJ 2MG/2ML VIAL (J2250 PER 1MG) As Ordered ONE ×2 (06:57→11:50)
[2020-03-05] MEDS ORDERED: ePHEDrine SULFATE 25 MG/5 ML(5MG/ML) SYRINGE As Ordered ONE (06:58)
[2020-03-05] MEDS ORDERED: ROCURONIUM BROMIDE 50 MG/5 ML VIAL As Ordered ONE (06:58)
[2020-03-05] MEDS ORDERED: propofoL 200 MG/20 ML VIAL As Ordered ONE (06:58)
[2020-03-05] MEDS ORDERED: SUGAMMADEX SODIUM 500 MG/5 ML VIAL (BRIDION) As Ordered ONE (06:58)
[2020-03-05] MEDS ORDERED: dexameTHASONE 4 MG/ML 1ML VIAL (J1100 PER 1MG) As Ordered ONE (06:58)
[2020-03-05] MEDS ORDERED: ONDANSETRON 4MG/2ML VIAL As Ordered ONE ×2 (06:58→09:46)
[2020-03-05] MEDS ORDERED: LIDOCAINE 2% 100MG/5ML SDV (FOR ANES.) As Ordered ONE (06:58)
[2020-03-05] MEDS ORDERED: fentaNYL 250 MCG/5 ML INJECTION (J3010) As Ordered ONE (06:58)
[2020-03-05] MEDS ORDERED: PHENYLephrine HCL 500 MCG/5 ML (100MCG/ML) SYRINGE (J2370) As Ordered ONE (06:58)
[2020-03-05] MEDS ORDERED: ceFAZolin SOD 1 GM in D5W MINI-BAG PLUS 50 ML IV ONE (07:00)
[2020-03-05] MEDS ORDERED: BUPIVACAINE HCL 0.25% 30ML VIAL As Ordered ONE (07:11)
[2020-03-05] MEDS ORDERED: BUPIVACAINE LIPOSOME/PF 1.3% 20ML VIAL (13.3MG/ML)(EXPAREL)(C9290 PER1MG) As Ordered ONE (07:12)
[2020-03-05] MEDS ORDERED: SCOPOLAMINE 1MG TRANSDERMAL PATCH TOP ONE (07:15)
[2020-03-05] MEDS ORDERED: BUPIVACAINE HCL 0.25% 10ML VIAL As Ordered ONE (07:36)
[2020-03-05] MEDS ORDERED: ACETAMINOPHEN 1000MG 100ML IV BTL (OFIRMEV) (J0131 PER 10MG) As Ordered ONE (07:45)
[2020-03-05] MEDS ORDERED: BUPIVACAINE/EPIN 0.25% 30 ML VIAL As Ordered ONE (08:00)
[2020-03-05] MEDS ORDERED: HYDROMORPHONE HCL 0.5 MG/ 0.5 ML SYRINGE (J1170 PER 1) As Ordered ONE ×2 (09:34→09:42)
[2020-03-05] MEDS: HYDROMORPHONE HCL 0.5 MG/ 0.5 ML SYRINGE (J1170 PER 1) IV PRN ×4 (09:35→09:50)
[2020-03-05] MEDS ORDERED: KETOROLAC 30 MG/ML 1ML VIAL As Ordered ONE (09:40)
[2020-03-05] MEDS ORDERED: ONDANSETRON 4MG/2ML VIAL IV PRN (09:45)
[2020-03-05] MEDS ORDERED: LR 1,000 ML IV SCH ×2 (09:45→10:00)
[2020-03-05] MEDS ORDERED: oxyCODONE 5MG TAB PO PRN (09:45)
--- NOTE | 2020-03-05 09:49 | RO ---
DATE OF PROCEDURE: 03/05/2020 PREOPERATIVE DIAGNOSIS: Umbilical hernia and right lower quadrant incisional hernia. POSTOPERATIVE DIAGNOSIS: Umbilical hernia and right lower quadrant incisional hernia. PROCEDURE: 1. Robotic-assisted laparoscopic umbilical hernia repair with mesh. 2. Robotic-assisted laparoscopic incisional hernia repair (right lower quadrant) SURGEON: Dr. Drew Jerry WEB MOBILE DESIGNER: Heidi Palomo (provided instrument exchange, trocar placement, trocar closure, mesh placement). ANESTHESIA: ESTIMATED BLOOD LOSS: Minimal. FLUIDS: Crystalloid. BRIEF PROCEDURE SUMMARY: The patient was brought to the operating room and was given general anesthesia. After adequate anesthesia and preoperative antibiotics were given, the patient was prepped and draped in the usual sterile fashion. Next, a left upper quadrant incision was made with skin knife. Blunt dissection was carried down to the fascia. Veress needle inserted into the fascia. Insufflated to 15 mm of pressure. Dilating 8 mm trocar was placed under direct visualization and an epigastric and left lateral abdominal wall trocar were placed. Next, the hernia, although it showed us on the CAT scan to be at the umbilicus was actually just inferior to the umbilicus. In any case, the patient had incarcerated omentum within this and this was mobilized out of the hernia sac using electrocautery on the hernia sac edges as well as the omentum. The omentum was eventually delivered out of this umbilical site and then the same was repeated in the incisional hernia in the right lower quadrant. Once the omentum was reduced from each of these sites, the right lower quadrant incisional hernia was less than a centimeter in size and it was from a previous right lower quadrant trocar site. This incisional hernia was then closed with a running #0 Stratafix and this closed the area quite nicely. Exparel was injected into the area. Next, the umbilical hernia was somewhat laying in a transverse manner and this actually was then closed in a transverse manner with a running #0 Stratafix. The tissue itself looked rather attenuated just on the edges of this repair and I felt that a Parietex mesh 9 cm would be reasonable to place in this. Thus, this was placed intraperitoneally with a Derian-Wadsworth holding up some #0 Vicryl that was placed through the center of this repair. Circumferentially I placed a #3-0 V-Loc suture. All trocars were removed under direct visualization once Exparel was placed around the umbilicus and all trocar sites were closed with #4-0 Vicryl in the skin layer. Steri-Strips and a dry sterile dressing was applied. The patient was awakened, extubated and brought to the recovery room awake, alert and hemodynamically stable.
[2020-03-05] MEDS ORDERED: METOCLOPRAMIDE INJ 10MG/2ML VIAL (J2765 PER 1) As Ordered ONE (09:53)
[2020-03-05] MEDS ORDERED: METOCLOPRAMIDE INJ 10MG/2ML VIAL (J2765 PER 1) IV PRN (10:00)
[2020-03-05] MEDS ORDERED: PERCOCET 5MG/325MG TAB PO PRN (10:00)
[2020-03-05] MEDS ORDERED: diphenhydrAMINE 50MG/ML VIAL (J1200) As Ordered ONE (10:05)
[2020-03-05] MEDS ORDERED: diphenhydrAMINE 50MG/ML VIAL (J1200) IV ONE (10:15)
[2020-03-05] MEDS ORDERED: PROMETHAZINE INJ 25 MG/ML VIAL (J2550) As Ordered ONE (10:25)
[2020-03-05] MEDS: PROMETHAZINE INJ 25 MG/ML VIAL (J2550) IV PRN ×2 (10:28→10:33)
[2020-03-05] MEDS ORDERED: fentaNYL 100 MCG/2 ML INJECTION (J3010) As Ordered ONE (11:06)
[2020-03-05] MEDS: fentaNYL 100 MCG/2 ML INJECTION (J3010) IV PRN ×4 (11:10→11:28)
[2020-03-05] MEDS ORDERED: MIDAZOLAM INJ 2MG/2ML VIAL (J2250 PER 1MG) IV ONE (12:00)
[2020-03-05 14:50] VITALS: BP 130/61
[2020-03-05] MEDS ORDERED: KETOROLAC 30 MG/ML 1ML VIAL IV SCH (16:00)
== END 2020-03-05 15:20 | disposition home or self-care (01) ==
LOC: M SDC 06:19
PROVIDERS: ATTEND Surgery
DX: K42.9 Umbilical hernia without obstruction or gangrene (principal); K43.2 Incisional hernia without obstruction or gangrene; I10 Essential (primary) hypertension; J45.909 Unspecified asthma, uncomplicated; G47.30 Sleep apnea, unspecified; E03.9 Hypothyroidism, unspecified; K21.9 Gastro-esophageal reflux disease without esophagitis; F41.9 Anxiety disorder, unspecified; F32.9 Major depressive disorder, single episode, unspecified; Z79.899 Other long term (current) drug therapy
CPT/HCPCS: 49652; 49654; C1781; C9290; J0131; J0690; J1100; J1200; J1885; J2250; J2370; J2405; J2765; J3010

== ENCOUNTER → 2020-04-12 | Outpatient (REF) | payer MEDICARE, MEDICAID ==
[~2020-04-12] MED LIST changes: +AMOX875T2; -LR 1,000 ML IV ONE; +MULT-90 PO
[2020-04-12 13:44] LABS: APPEARANCE, URINE CLEAR (CLEAR); BACTERIA, URINE AUTO 1+ (NEGATIVE); BILIRUBIN, URINE AUTO NEGATIVE (NEGATIVE); BLOOD, URINE BLOOD 3+ (NEGATIVE); COLOR, URINE YELLOW (YELLOW); GLUCOSE, URINE (UA) AUTO NEGATIVE (NEGATIVE); KETONE, URINE AUTO NEGATIVE (NEGATIVE); LEUKOCYTE ESTERASE, URINE AUTO 3+ (NEGATIVE); MUCUS, URINE SMALL (NEGATIVE); NITRITE, URINE AUTO NEGATIVE (NEGATIVE); PROTEIN, URINE AUTO NEGATIVE (NEGATIVE); RBC, URINE AUTO 106 /HPF (0-3); SPECIFIC GRAVITY URINE AUTO 1.018 (1.002-1.035); SQUAMOUS EPITHELIAL CELL UR AU 2 /HPF (0-6); UROBILINOGEN, URINE AUTO 0.2 mg/dL (0.0-2.0); WBC, URINE AUTO TNTC /HPF (0-3)
== END ==
LOC: M LAB REF 11:22
PROVIDERS: ATTEND Physician Assistant Medical
DX: N39.0 Urinary tract infection, site not specified (principal)

== ENCOUNTER → 2020-05-07 | Outpatient (REF) | payer MEDICARE, OTHER ==
[2020-06-30 18:18] LABS: FREE T4 1.17 NG/DL (0.76-1.46); THYROID STIMULATING HORMONE 0.322 uIU/ML (0.358-3.740)
== END ==
LOC: M WUC 17:00
PROVIDERS: ATTEND Physician Assistant
DX: E03.9 Hypothyroidism, unspecified (principal)

== ENCOUNTER → 2020-05-19 | Outpatient (REF) | payer MEDICARE, OTHER ==
[2020-05-19 18:59] LABS: APPEARANCE, URINE HAZY (CLEAR); BACTERIA, URINE AUTO NEGATIVE (NEGATIVE); BILIRUBIN, URINE AUTO NEGATIVE (NEGATIVE); BLOOD, URINE BLOOD 2+ (NEGATIVE); COLOR, URINE AMBER (YELLOW); GLUCOSE, URINE (UA) AUTO NEGATIVE (NEGATIVE); KETONE, URINE AUTO NEGATIVE (NEGATIVE); LEUKOCYTE ESTERASE, URINE AUTO 2+ (NEGATIVE); NITRITE, URINE AUTO POSITIVE (NEGATIVE); PROTEIN, URINE AUTO NEGATIVE (NEGATIVE); RBC, URINE AUTO 9 /HPF (0-3); SPECIFIC GRAVITY URINE AUTO 1.015 (1.002-1.035); SQUAMOUS EPITHELIAL CELL UR AU 1 /HPF (0-6); WBC, URINE AUTO TNTC /HPF (0-3)
== END ==
LOC: M LAB REF 17:37
PROVIDERS: ATTEND Physician Assistant
DX: N39.0 Urinary tract infection, site not specified (principal)

== ENCOUNTER → 2020-06-25 | Outpatient (CLI) | payer MEDICARE ==
--- NOTE | 2020-07-03 13:37 | REP ---
CT CHEST WITHOUT CONTRAST: LOW-DOSE SCREENING EXAM HISTORY: Personal history of nicotine dependence. COMPARISON: Chest CT study from 12/11/2011. CT FINDINGS: Preliminary digital box sorter radiograph and subsequently obtained axial CT images demonstrate that the patient is status post lower cervical discectomy and fusion plating. The lungs are slightly hyperinflated. There is no evidence of pulmonary nodule, mass, or infiltrate. There is an area of pleural plaquing or scarring in the right base on the right hemidiaphragm. IMPRESSION: Lung-RADS Category 1 findings. Repeat screening study suggested in one year. DD: MORGAN
== END ==
LOC: M RAD 10:47
PROVIDERS: ATTEND Internal Medicine Pulmonary Disease
DX: Z12.2 Encounter for screening for malignant neoplasm of respiratory organs (principal); Z87.891 Personal history of nicotine dependence

== ENCOUNTER → 2020-07-14 | Outpatient (CLI) | payer MEDICARE | LOC: M LABSMTC 11:21 | PROVIDERS: ATTEND Anesthesiology | DX: Z01.812 Encounter for preprocedural laboratory examination (principal); Z20.828 Contact with and (suspected) exposure to other viral communicable diseases | CPT/HCPCS: C9803; U0003 ==

== ENCOUNTER 2020-07-19 14:14 | Day surgery (SDC) | payer MEDICARE ==
[~2020-07-19] VITALS: Ht 162.6 cm; Wt 105.2 kg
[~2020-07-19 14:14] MED LIST changes: +NS 1,000 ML IV ONE
[2020-07-19] MEDS ORDERED: propofoL 200 MG/20 ML VIAL As Ordered ONE ×2 (16:05→16:21)
[2020-07-19] MEDS ORDERED: LIDOCAINE 2% 100MG/5ML SDV (FOR ANES.) As Ordered ONE (16:05)
[2020-07-19] MEDS ORDERED: fentaNYL 100 MCG/2 ML INJECTION (J3010) As Ordered ONE (16:05)
--- NOTE | 2020-07-19 16:25 | ROOR ---
Patient Name: Fatimah Bronson Procedure Date: 07/19/2020 4:06 PM Date of : 1965 Age: 55 Room: [facility] Gender: Female Note Status: Finalized Procedure: Upper GI endoscopy Indications: Oropharyngeal phase dysphagia, Heartburn Providers: Joseph TRIMBLE MD Referring MD: Carol Garces Requesting Provider: Medicines: Monitored Anesthesia Care Complications: No immediate complications. Procedure: Pre-Anesthesia Assessment: - The heart rate, respiratory rate, oxygen saturations, blood pressure, adequacy of pulmonary ventilation, and response to care were monitored throughout the procedure. The Endoscope was introduced through the mouth, and advanced to the second part of duodenum. The upper GI endoscopy was accomplished without difficulty. The patient tolerated the procedure well. Findings: The examined esophagus was normal. No endoscopic abnormality was evident in the esophagus to explain the patient's complaint of dysphagia. It was decided, however, to proceed with dilation of the entire esophagus. The scope was withdrawn. Dilation was performed with a Webster dilator with mild resistance at 56 Fr. The dilation site was examined following endoscope reinsertion and showed no change. Very small (insignificant) Hiatal Hernia. The entire examined stomach was normal. The examined duodenum was normal. Impression: - Normal esophagus. No endoscopic esophageal abnormality to explain patient's dysphagia. Esophagus dilated. Dilated with 56 F Webster dilator.. - Very small (insignificant) Hiatal Hernia. - Normal stomach. - Normal examined duodenum. - No specimens collected. Recommendation: - Observe patient's clinical course. - Continue present medications. Joseph Trimble MD Joseph TRIMBLE MD 07/19/2020 4:24:13 PM Electronically signed by Joseph TRIMBLE MD Number of Addenda: 0 Note Initiated On: 07/19/2020 4:06 PM Estimated Blood Loss: Estimated blood loss: none.
[2020-07-19 16:48] VITALS: BP 145/79
== END 2020-07-19 17:00 | disposition home or self-care (01) ==
LOC: M OPP 14:14
PROVIDERS: ATTEND Internal Medicine Gastroenterology
DX: R13.12 Dysphagia, oropharyngeal phase (principal); R12 Heartburn; G47.30 Sleep apnea, unspecified; K21.9 Gastro-esophageal reflux disease without esophagitis; I10 Essential (primary) hypertension; E03.9 Hypothyroidism, unspecified; M79.7 Fibromyalgia; Z79.899 Other long term (current) drug therapy; Z87.891 Personal history of nicotine dependence
CPT/HCPCS: 43235; 43450; J3010

== ENCOUNTER → 2020-08-30 | Outpatient (CLI) | payer MEDICARE, MEDICAID ==
[~2020-08-30] MED LIST changes: -NS 1,000 ML IV ONE
--- NOTE | 2020-08-30 15:53 | REP ---
INDICATION: EKATERINA BREAST U/S/POSITIVE GENETIC TEST/HIGH RISK. High-risk screening exam. Claustrophobia precludes MRI scanning. COMPARISON: Mammography from February 26, 2020.. TECHNIQUE: Screening bilateral whole breast ultrasound. FINDINGS: High-resolution bilateral breast screening sonography shows fairly homogeneous fat replaced background breast parenchyma. No cyst or mass is seen in either breast. No area of acoustic shadowing or other suspicious finding. There are normal appearing bilateral axillary lymph nodes. The largest of these on the right measures 3.6 x 2.1 x 1.0 cm. On the left the largest lymph node visible measures 2.9 x 2.2 x 1.0 cm. These have echogenic hilar fat and less than 1 mm of cortical margin. They are benign in appearance. IMPRESSION: BI-RADS category 2 benign findings. <Electronically signed by Neil Garvey > 08/30/20 [id number]
== END ==
LOC: M WHC 13:29
PROVIDERS: ATTEND Surgery
DX: Z91.89 Other specified personal risk factors, not elsewhere classified (principal)

== ENCOUNTER → 2020-10-05 | Outpatient (CLI) | payer MEDICARE, MEDICAID | LOC: M LABSMTC 14:48 | PROVIDERS: ATTEND Family Medicine | DX: Z20.822 Contact with and (suspected) exposure to COVID-19 (principal) ==

== ENCOUNTER → 2020-10-15 | Outpatient (CLI) | payer MEDICARE, MEDICAID ==
[~2020-10-15] MED LIST changes: -LISI-538 PO; +LISI10TA22 PO; -LISI10TA4 PO; +LISI20TA33 PO
[2020-10-15 16:18] LABS: AMORPHOUS SEDIMENT SMALL (NEGATIVE); APPEARANCE, URINE TURBID (CLEAR); BACTERIA, URINE AUTO NEGATIVE (NEGATIVE); BILIRUBIN, URINE AUTO NEGATIVE (NEGATIVE); BLOOD, URINE BLOOD 1+ (NEGATIVE); COLOR, URINE YELLOW (YELLOW); GLUCOSE, URINE (UA) AUTO NEGATIVE (NEGATIVE); KETONE, URINE AUTO NEGATIVE (NEGATIVE); LEUKOCYTE ESTERASE, URINE AUTO TRACE (NEGATIVE); MUCUS, URINE SMALL (NEGATIVE); NITRITE, URINE AUTO NEGATIVE (NEGATIVE); PROTEIN, URINE AUTO NEGATIVE (NEGATIVE); RBC, URINE AUTO 0 /HPF (0-3); SPECIFIC GRAVITY URINE AUTO 1.021 (1.002-1.035); SQUAMOUS EPITHELIAL CELL UR AU 4 /HPF (0-6); UROBILINOGEN, URINE AUTO 0.2 mg/dL (0.0-2.0); WBC, URINE AUTO 2 /HPF (0-3)
[2020-10-15 16:36] LABS: BASO % 0.4 % (0.0-1.0); EOS # 0.2 10^3/uL (0.0-0.5); EOS % 3.5 % (0.0-3.0); HEMATOCRIT 40.4 % (36.0-47.0); HEMOGLOBIN 13.1 g/dl (12.0-15.5); LYMPH # 1.4 10^3/uL (1.5-5.0); MEAN CORPUSCULAR HGB CONC 32.4 g/dl (32.0-36.5); MEAN CORPUSCULAR VOLUME 92.7 fl (80.0-96.0); MONO # 0.3 10^3/uL (0.0-0.8); MONO % 6.3 % (0.0-5.0); NEUTROPHILS # 3.2 10^3/uL (1.5-8.5); NEUTROPHILS % 62.6 % (36.0-66.0); PLATELET COUNT, AUTOMATED 331 10^3/uL (150-450); RED BLOOD COUNT 4.36 10^6/uL (4.00-5.40); WHITE BLOOD COUNT 5.1 10^3/uL (4.0-10.0)
[2020-10-15 16:48] LABS: HEMOGLOBIN A1c 5.7 %
[2020-10-15 16:54] LABS: INR 0.97; PROTHROMBIN TIME 13.1 SECONDS (12.5-14.3)
[2020-10-15 16:55] LABS: PARTIAL THROMBOPLASTIN TIME 32.6 SECONDS (24.2-38.5)
[2020-10-15 17:00] LABS: ALBUMIN 4.3 GM/DL (3.2-5.2); ALT/SGPT 29 U/L (12-78); BILIRUBIN,TOTAL 1.1 MG/DL (0.2-1.0); BLOOD UREA NITROGEN 17 MG/DL (7-18); CALCIUM LEVEL 9.7 MG/DL (8.5-10.1); CARBON DIOXIDE LEVEL 27 MEQ/L (21-32); CHLORIDE LEVEL 104 MEQ/L (98-107); CHOLESTEROL LEVEL 219 MG/DL (<200); CHOLESTEROL RISK RATIO 4.132 (<5); CREATININE FOR GFR 0.78 MG/DL (0.55-1.30); FERRITIN 27 NG/ML (8-252); GLOMERULAR FILTRATION RATE > 60.0 (>51); GLUCOSE, FASTING 94 MG/DL (70-100); HDL CHOLESTEROL 53 MG/DL (>40); IRON (FE) 76 UG/DL (50-170); LDL CHOLESTEROL 119 MG/DL (<100); NON-HDL-C 166 MG/DL; PERCENT SATURATION 18.1 % (13.2-45.0); POTASSIUM SERUM 4.5 MEQ/L (3.5-5.1); PTH INTACT 62.8 PG/ML (18.5-88.0); SODIUM LEVEL 138 MEQ/L (136-145); THYROID STIMULATING HORMONE 0.203 uIU/ML (0.358-3.740); TOTAL 25(OH) VITAMIN D 29.6 NG/ML (30.0-100.0); TOTAL IRON BINDING CAPACITY 419 UG/DL (250-450); TOTAL PROTEIN 7.7 GM/DL (6.4-8.2); TRIGLYCERIDES LEVEL 234 MG/DL (<150)
[2020-10-15 17:01] LABS: FOLATE 23.4 NG/ML (>5.4); VITAMIN B12 LEVEL 657 PG/ML (247-911)
== END ==
LOC: M WUC 10:58
PROVIDERS: ATTEND Surgery
DX: E66.01 Morbid (severe) obesity due to excess calories (principal); Z79.899 Other long term (current) drug therapy

== ENCOUNTER → 2020-10-27 | Outpatient (REF) | payer MEDICARE, MEDICAID | LOC: M SFHCWAGY 18:55 | PROVIDERS: ATTEND Nurse Practitioner Family | DX: Z12.72 Encounter for screening for malignant neoplasm of vagina (principal); N95.2 Postmenopausal atrophic vaginitis; R87.610 Atypical squamous cells of undetermined significance on cytologic smear of cervix (ASC-US) | CPT/HCPCS: 87624; G0123; G0463 ==

== ENCOUNTER → 2020-11-26 | Outpatient (CLI) | payer MEDICARE, MEDICAID ==
[~2020-11-26] MED LIST changes: +ACET-840 PO; +AMOX875T2 PO
== END ==
LOC: M LABSMTC 11:09
PROVIDERS: ATTEND Anesthesiology
DX: Z01.812 Encounter for preprocedural laboratory examination (principal); Z20.822 Contact with and (suspected) exposure to COVID-19

== ENCOUNTER → 2020-11-29 | Outpatient (REF) | payer MEDICARE, MEDICAID | LOC: M LAB REF 15:47 | PROVIDERS: ATTEND Surgery | DX: Z01.818 Encounter for other preprocedural examination (principal) ==

== ENCOUNTER 2020-12-01 10:00 | Day surgery (SDC) | payer MEDICARE, MEDICAID ==
[~2020-12-01] VITALS: Ht 160 cm; Wt 102.9 kg
[~2020-12-01 10:00] MED LIST changes: +LR 1,000 ML IV ONE
[2020-12-01] MEDS ORDERED: fentaNYL 250 MCG/5 ML INJECTION (J3010) As Ordered ONE (11:09)
[2020-12-01] MEDS ORDERED: ROCURONIUM BROMIDE 50 MG/5 ML VIAL As Ordered ONE (11:09)
[2020-12-01] MEDS ORDERED: MIDAZOLAM INJ 2MG/2ML VIAL (J2250 PER 1MG) As Ordered ONE (11:09)
[2020-12-01] MEDS ORDERED: LIDOCAINE 2% 100MG/5ML SDV (FOR ANES.) As Ordered ONE (11:09)
[2020-12-01] MEDS ORDERED: propofoL 200 MG/20 ML VIAL As Ordered ONE ×2 (11:09→11:10)
[2020-12-01] MEDS ORDERED: METHYLENE BLUE 0.5% (5MG/ML) 10 ML AMP (PROVAYBLUE) As Ordered ONE (11:10)
[2020-12-01] MEDS ORDERED: EPINEPHrine 1MG/ML INJ 30ML MD-VIAL As Ordered ONE (11:11)
[2020-12-01] MEDS ORDERED: LIDOCAINE W/EPINEPHRINE 1% 20ML VIAL As Ordered ONE (11:11)
[2020-12-01] MEDS ORDERED: SCOPOLAMINE 1MG TRANSDERMAL PATCH TOP ONE (11:25)
[2020-12-01] MEDS ORDERED: dexameTHASONE 4 MG/ML 1ML VIAL (J1100 PER 1MG) As Ordered ONE (12:15)
[2020-12-01] MEDS ORDERED: ACETAMINOPHEN 1000MG 100ML IV BTL (OFIRMEV) (J0131 PER 10MG) As Ordered ONE (12:15)
[2020-12-01] MEDS ORDERED: ONDANSETRON 4MG/2ML VIAL As Ordered ONE (12:28)
[2020-12-01] MEDS ORDERED: SUGAMMADEX SODIUM 500 MG/5 ML VIAL (BRIDION) As Ordered ONE (12:29)
[2020-12-01] MEDS ORDERED: fentaNYL 100 MCG/2 ML INJECTION (J3010) As Ordered ONE (13:05)
[2020-12-01] MEDS: fentaNYL 100 MCG/2 ML INJECTION (J3010) IV PRN ×2 (13:05→13:12)
[2020-12-01] MEDS ORDERED: PERCOCET 5MG/325MG TAB PO PRN (13:10)
[2020-12-01] MEDS ORDERED: ONDANSETRON 4MG/2ML VIAL IV PRN (13:10)
[2020-12-01] MEDS ORDERED: LR 1,000 ML IV SCH ×2 (13:10→13:15)
[2020-12-01] MEDS ORDERED: METOCLOPRAMIDE INJ 10MG/2ML VIAL (J2765 PER 1) IV PRN (13:10)
[2020-12-01] MEDS ORDERED: ACETAMINOPH W/CODEINE #3 TAB UD PO PRN (13:15)
[2020-12-01 14:48] VITALS: BP 142/81
--- NOTE | 2020-12-03 08:09 | RO ---
OPERATIVE NOTE DATE OF OPERATION: 12/01/2020 PREOPERATIVE DIAGNOSES: 1. Nasal septal deviation 2. Chronic rhinitis. 3. Chronic sinusitis. POSTOPERATIVE DIAGNOSES: 1. Nasal septal deviation. 2. Chronic rhinitis. 3. Chronic sinusitis. PROCEDURES: 1. Septoplasty. 2. Bilateral turbinectomy. 3. Left intranasal antrostomy. SURGEON: Fly Grijalva M.D. ANIMAL GENETICIST: None. ANESTHESIA: General. DESCRIPTION OF PROCEDURE: PREOPERATIVE DIAGNOSIS: Chronic tonsillitis. POSTOPERATIVE DIAGNOSIS: Chronic tonsillitis. PROCEDURE: Tonsillectomy. SURGEON: Fly Grijalva M.D. ANIMAL GENETICIST: None. ANESTHESIA: General. DESCRIPTION OF PROCEDURE: Under general anesthesia with the patient, prepped and draped in the usual manner. I used pledgets of adrenaline 1:100,000. I infiltrated with Lidocaine and 0.5% Marcaine. I made an incision on the left side. I elevated the subperichondrial and periosteal planes. I removed portions of the maxillary crest. Ethmoid plate and vomer ridge were deviated. Once this was done the septum was straight. I closed that incision with 4-0 Chromic. I then went between the middle turbinate and lateral nasal wall on the left side. I opened up the maxillary sinus and enlarged that opening inferiorly, anteriorly, and posteriorly. I then made an incision anterior, posterior, and inferior to the turbinates on both sides. I elevated the mucosa and then trimmed some of the izabella using the microdebrider. The patient tolerated the procedure well. Less then 25 mL of estimated blood loss. The patient was extubated and transferred to the recovery room in excellent condition.
== END 2020-12-01 15:20 | disposition home or self-care (01) ==
LOC: M SDC 10:00
PROVIDERS: ATTEND Otolaryngology
DX: J34.2 Deviated nasal septum (principal); J31.0 Chronic rhinitis; J32.9 Chronic sinusitis, unspecified; I10 Essential (primary) hypertension; G47.33 Obstructive sleep apnea (adult) (pediatric); M81.0 Age-related osteoporosis without current pathological fracture; M79.7 Fibromyalgia; F41.9 Anxiety disorder, unspecified; F32.9 Major depressive disorder, single episode, unspecified; E03.9 Hypothyroidism, unspecified; E04.1 Nontoxic single thyroid nodule; Z79.899 Other long term (current) drug therapy
CPT/HCPCS: 30140; 30520; 31267; 88300; 88305; J0131; J1100; J2250; J2405; J3010; Q9968

== ENCOUNTER → 2020-12-29 | Outpatient (CLI) | payer MEDICARE, MEDICAID ==
[~2020-12-29] MED LIST changes: -LR 1,000 ML IV ONE
[2020-12-29 12:18] LABS: FREE T4 0.99 NG/DL (0.76-1.46); THYROID STIMULATING HORMONE 0.664 uIU/ML (0.358-3.740)
== END ==
LOC: M WUC 09:46
PROVIDERS: ATTEND Physician Assistant
DX: E03.9 Hypothyroidism, unspecified (principal)

== ENCOUNTER → 2021-02-05 | Outpatient (REF) | payer MEDICARE ==
[~2021-02-05] MED LIST changes: +GABA-283 PO; -GABA-845 PO
== END ==
LOC: M WUC 17:34
PROVIDERS: ATTEND Physician Assistant Medical
DX: N39.0 Urinary tract infection, site not specified (principal)

== ENCOUNTER → 2021-02-28 | Outpatient (CLI) | payer MEDICARE, MEDICAID | LOC: M WHC 13:05 | PROVIDERS: ATTEND Surgery | DX: Z91.89 Other specified personal risk factors, not elsewhere classified (principal) ==

== ENCOUNTER → 2021-02-28 | Outpatient (CLI) | payer MEDICARE ==
[~2021-02-28] MED LIST changes: +OMEP40CA4 PO; -OMEP40CA97 PO
[2021-02-28 19:55] LABS: C REACTIVE PROTEIN QUANTITATIV 0.32 MG/DL (0.00-0.30); RHEUMATOID FACTOR QUANT < 10.0 IU/ML (<15.0)
[2021-02-28 19:58] LABS: HEMATOCRIT 39.6 % (36.0-47.0); HEMOGLOBIN 12.8 g/dl (12.0-15.5); MEAN CORPUSCULAR HEMOGLOBIN 30.5 pg (27.0-33.0); MEAN CORPUSCULAR HGB CONC 32.3 g/dl (32.0-36.5); MEAN CORPUSCULAR VOLUME 94.3 fl (80.0-96.0); PLATELET COUNT, AUTOMATED 309 10^3/uL (150-450); WHITE BLOOD COUNT 7.1 10^3/uL (4.0-10.0)
[2021-02-28 20:44] LABS: ERYTHROCYTE SEDIMENTATION RATE 16 mm/hr (0-30)
[2021-03-03 00:11] LABS: ANTINUCLEAR ANTIBODIES DIRECT Negative (Negative); CYCLIC CITRULLINATED PEPTIDE 4 units (0-19)
== END ==
LOC: M WUC 15:45
PROVIDERS: ATTEND Physician Assistant
DX: M13.0 Polyarthritis, unspecified (principal); Z79.899 Other long term (current) drug therapy
CPT/HCPCS: 36415; 85027; 85652; 86038; 86140; 86200; 86431; G0463

== ENCOUNTER → 2021-03-15 | Outpatient (CLI) | payer MEDICARE, MEDICAID ==
--- NOTE | 2021-03-15 13:50 | REPMRS ---
Patient History The patient states she had a clinical breast exam in February 2021. Family history of breast cancer under age 50 in paternal aunt, breast cancer under age 50 in maternal aunt, prostate cancer at age 50 or over in father. Benign excisional biopsy of the right breast. No Hormone Replacement Therapy Patient states no breast complaints today. Patient has signed MRS History Sheet. Digital Woman Screen Mammo: March 15, 2021 - Exam #: [id number] Bilateral CC and MLO view(s) were taken. Technologist: RT Daniel Prior study comparison: February 26, 2020, bilateral digital woman screen mammo performed at [facility]. February 24, 2019, bilateral digital woman screen mammo performed at [facility]. February 22, 2018, digital woman screen mammo performed at [facility]. FINDINGS: The breast tissue is almost entirely fat. The Volpara volumetric breast density category is: A. There has been no change in the appearance of the mammogram from the prior studies. There is no interval development of dominant mass, architectural distortion, or grouped microcalcification typical of malignancy. 3-D tomosynthesis shows no additional findings. Assessment: BI-RADS/ACR category 1 mammogram. Negative Mammogram. Recommendation Routine screening mammogram of both breasts in 1 year (for women over age 40). This patient's [facility] Lifetime Breast Cancer RIsk is estimated at 13.5 %. This mammogram was interpreted with the aid of an FDA-approved computer-aided dectection system. Electronically Signed By: Neil Garvey MD 03/15/21 [id number]
--- NOTE | 2021-03-15 16:01 | REP ---
INDICATION: Z91.89 AT HIGH RISK FOR BRESAT CANCER,CANNOT HAVE MRI. COMPARISON: Comparison sonography August 30, 2020.. TECHNIQUE: Bilateral whole breast sonography screening study. FINDINGS: Fairly homogeneous bilateral fibroglandular background echotexture is seen. No cyst, mass, architectural distortion or other suspicious finding is seen in either breast. IMPRESSION: BI-RADS category 1 negative screening bilateral whole breast sonography. <Electronically signed by Neil Garvey > 03/15/21 [id number]
== END ==
LOC: M WHC 13:00
PROVIDERS: ATTEND Surgery
DX: Z12.31 Encounter for screening mammogram for malignant neoplasm of breast (principal); R92.1 Mammographic calcification found on diagnostic imaging of breast

== ENCOUNTER → 2021-04-05 | Outpatient (CLI) | payer MEDICARE ==
[~2021-04-05] MED LIST changes: +E-Z-GAS II EFFERVESCENT PACKET (SODIUM BICARB./CITRIC ACID/SIMETHICONE) As Ordered ONE; +E-Z-HD 98% w/w 340GM SUSP BTL As Ordered ONE; +E-Z-PAQUE 96% w/w SUSP 176GM BTL As Ordered ONE; -TOPI25CA3 PO; +TOPI25CA5 PO
== END ==
LOC: M RAD 08:22
PROVIDERS: ATTEND Surgery
DX: R30.0 Dysuria (principal); K21.9 Gastro-esophageal reflux disease without esophagitis

== ENCOUNTER → 2021-04-16 | Outpatient (REF) | payer MEDICARE, MEDICAID ==
[~2021-04-16] MED LIST changes: -E-Z-GAS II EFFERVESCENT PACKET (SODIUM BICARB./CITRIC ACID/SIMETHICONE) As Ordered ONE; -E-Z-HD 98% w/w 340GM SUSP BTL As Ordered ONE; -E-Z-PAQUE 96% w/w SUSP 176GM BTL As Ordered ONE; +TOPI25CA3 PO; -TOPI25CA5 PO
[2021-04-16 18:04] LABS: APPEARANCE, URINE CLOUDY (CLEAR); BACTERIA, URINE AUTO 3+ (NEGATIVE); BILIRUBIN, URINE AUTO NEGATIVE (NEGATIVE); BLOOD, URINE BLOOD NEGATIVE (NEGATIVE); COLOR, URINE YELLOW (YELLOW); GLUCOSE, URINE (UA) AUTO NEGATIVE (NEGATIVE); KETONE, URINE AUTO NEGATIVE (NEGATIVE); LEUKOCYTE ESTERASE, URINE AUTO 3+ (NEGATIVE); MUCUS, URINE SMALL (NEGATIVE); NITRITE, URINE AUTO POSITIVE (NEGATIVE); PROTEIN, URINE AUTO NEGATIVE (NEGATIVE); RBC, URINE AUTO 4 /HPF (0-3); SPECIFIC GRAVITY URINE AUTO 1.021 (1.002-1.035); SQUAMOUS EPITHELIAL CELL UR AU 1 /HPF (0-6); UROBILINOGEN, URINE AUTO 0.2 mg/dL (0.0-2.0); WBC, URINE AUTO 59 /HPF (0-3)
== END ==
LOC: M LAB REF 17:38
PROVIDERS: ATTEND Physician Assistant Medical
DX: R30.0 Dysuria (principal)

== ENCOUNTER → 2021-06-04 | Outpatient (REF) | payer MEDICARE, MEDICAID ==
[2021-06-04 18:29] LABS: APPEARANCE, URINE CLEAR (CLEAR); BACTERIA, URINE AUTO NEGATIVE (NEGATIVE); BILIRUBIN, URINE AUTO NEGATIVE (NEGATIVE); BLOOD, URINE BLOOD NEGATIVE (NEGATIVE); COLOR, URINE YELLOW (YELLOW); GLUCOSE, URINE (UA) AUTO NEGATIVE (NEGATIVE); KETONE, URINE AUTO NEGATIVE (NEGATIVE); LEUKOCYTE ESTERASE, URINE AUTO NEGATIVE (NEGATIVE); NITRITE, URINE AUTO NEGATIVE (NEGATIVE); PROTEIN, URINE AUTO NEGATIVE (NEGATIVE); RBC, URINE AUTO 0 /HPF (0-3); SPECIFIC GRAVITY URINE AUTO 1.015 (1.002-1.035); SQUAMOUS EPITHELIAL CELL UR AU 1 /HPF (0-6); UROBILINOGEN, URINE AUTO 0.2 mg/dL (0.0-2.0); WBC, URINE AUTO 0 /HPF (0-3)
== END ==
LOC: M LAB REF 18:01
PROVIDERS: ATTEND Physician Assistant
DX: N39.0 Urinary tract infection, site not specified (principal)

== ENCOUNTER → 2021-06-08 | Outpatient (CLI) | payer MEDICARE, MEDICAID ==
[2021-06-08 13:29] LABS: BASO % 0.5 % (0.0-1.0); EOS # 0.2 10^3/uL (0.0-0.5); EOS % 2.9 % (0.0-3.0); HEMATOCRIT 39.9 % (36.0-47.0); LYMPH # 1.4 10^3/uL (1.5-5.0); LYMPH % 22.7 % (24.0-44.0); MEAN CORPUSCULAR HEMOGLOBIN 30.4 pg (27.0-33.0); MEAN CORPUSCULAR HGB CONC 32.6 g/dl (32.0-36.5); MEAN CORPUSCULAR VOLUME 93.4 fl (80.0-96.0); MONO # 0.3 10^3/uL (0.0-0.8); NEUTROPHILS # 4.1 10^3/uL (1.5-8.5); NEUTROPHILS % 68.4 % (36.0-66.0); PLATELET COUNT, AUTOMATED 303 10^3/uL (150-450); RED BLOOD COUNT 4.27 10^6/uL (4.00-5.40)
[2021-06-08 14:19] LABS: ERYTHROCYTE SEDIMENTATION RATE 18 mm/hr (0-30)
[2021-06-08 14:21] LABS: ALT/SGPT 29 U/L (12-78); BILIRUBIN,TOTAL 1.2 MG/DL (0.2-1.0); BLOOD UREA NITROGEN 18 MG/DL (7-18); CALCIUM LEVEL 9.5 MG/DL (8.5-10.1); CARBON DIOXIDE LEVEL 29 MEQ/L (21-32); CHLORIDE LEVEL 103 MEQ/L (98-107); CREATININE FOR GFR 0.78 MG/DL (0.55-1.30); FREE T4 0.91 NG/DL (0.76-1.46); GLOMERULAR FILTRATION RATE > 60.0 (>51); GLUCOSE, FASTING 98 MG/DL (70-100); POTASSIUM SERUM 4.4 MEQ/L (3.5-5.1); SODIUM LEVEL 138 MEQ/L (136-145); TOTAL PROTEIN 7.4 GM/DL (6.4-8.2)
== END ==
LOC: M PLALAB 11:21
PROVIDERS: ATTEND Physician Assistant
DX: R51.9 Headache, unspecified (principal); E03.9 Hypothyroidism, unspecified; M79.7 Fibromyalgia
CPT/HCPCS: 36415; 80053; 84439; 84443; 85025; 85652; 86140; G0463

== ENCOUNTER → 2021-07-19 | Outpatient (REF) | payer MEDICARE, MEDICAID | LOC: M LAB REF 21:07 | PROVIDERS: ATTEND Physician Assistant Medical | DX: J02.9 Acute pharyngitis, unspecified (principal) ==

== ENCOUNTER → 2021-08-09 | Outpatient (CLI) | payer MEDICARE, MEDICAID ==
--- NOTE | 2021-08-09 15:32 | REP ---
INDICATION: PAIN IN RIGHT SHOULDER. COMPARISON: None. TECHNIQUE: Three views of the right shoulder were performed. FINDINGS: The acromioclavicular and glenohumeral relationships are within normal limits. There is no acute fracture or destructive osseous lesion. IMPRESSION: Within normal limits <Electronically signed by Wes Hsu > 08/09/21 [id number]
== END ==
LOC: M PLAIMG 14:31
PROVIDERS: ATTEND Nurse Practitioner Family
DX: M25.511 Pain in right shoulder (principal)
CPT/HCPCS: 73030; G0463

== ENCOUNTER → 2021-10-03 | Outpatient (CLI) | payer MEDICARE, MEDICAID ==
[~2021-10-03] MED LIST changes: -TOPI25CA3 PO; +TOPI25CA5 PO
== END ==
LOC: M RAD 11:08
PROVIDERS: ATTEND Internal Medicine Pulmonary Disease
DX: Z12.2 Encounter for screening for malignant neoplasm of respiratory organs (principal); Z87.891 Personal history of nicotine dependence
CPT/HCPCS: 71271; G0463

== ENCOUNTER → 2021-12-07 | Outpatient (CLI) | payer MEDICARE ==
[2021-12-07 13:48] LABS: BLOOD UREA NITROGEN 17 MG/DL (7-18); CREATININE FOR GFR 0.82 MG/DL (0.55-1.30); GLOMERULAR FILTRATION RATE > 60.0 (>51)
== END ==
LOC: M WUC 10:57
PROVIDERS: ATTEND Physician Assistant
DX: M54.2 Cervicalgia (principal)

== ENCOUNTER → 2021-12-09 | Outpatient (CLI) | payer MEDICARE, OTHER | LOC: M PLARAD 14:42 | PROVIDERS: ATTEND Physician Assistant | DX: M50.31 Other cervical disc degeneration, high cervical region (principal) ==

== ENCOUNTER → 2021-12-16 | Outpatient (REF) | payer MEDICARE, OTHER | LOC: M LAB REF 11:38 | PROVIDERS: ATTEND Physician Assistant Medical | DX: J02.9 Acute pharyngitis, unspecified (principal) ==

== ENCOUNTER → 2022-03-13 | Outpatient (REF) | payer MEDICARE, OTHER | LOC: M LAB REF 19:05 | PROVIDERS: ATTEND Physician Assistant | DX: N39.0 Urinary tract infection, site not specified (principal) ==

== ENCOUNTER → 2022-03-23 | Outpatient (CLI) | payer MEDICARE, OTHER | LOC: M WHC 08:50 | PROVIDERS: ATTEND Nurse Practitioner Women's Health | DX: Z12.31 Encounter for screening mammogram for malignant neoplasm of breast (principal); N60.41 Mammary duct ectasia of right breast; Z91.89 Other specified personal risk factors, not elsewhere classified; Z15.01 Genetic susceptibility to malignant neoplasm of breast ==

== ENCOUNTER → 2022-03-28 | Outpatient (CLI) | payer MEDICARE, OTHER ==
[2022-03-28 13:18] LABS: BASO % 0.4 % (0.0-1.0); EOS # 0.1 10^3/uL (0.0-0.5); EOS % 1.6 % (0.0-3.0); HEMATOCRIT 38.4 % (36.0-47.0); HEMOGLOBIN 12.5 g/dl (12.0-15.5); LYMPH # 1.4 10^3/uL (1.5-5.0); LYMPH % 19.5 % (24.0-44.0); MEAN CORPUSCULAR HEMOGLOBIN 30.6 pg (27.0-33.0); MEAN CORPUSCULAR HGB CONC 32.6 g/dl (32.0-36.5); MEAN CORPUSCULAR VOLUME 93.9 fl (80.0-96.0); MONO # 0.3 10^3/uL (0.0-0.8); MONO % 4.7 % (2.0-8.0); NEUTROPHILS # 5.4 10^3/uL (1.5-8.5); NEUTROPHILS % 73.5 % (36.0-66.0); PLATELET COUNT, AUTOMATED 271 10^3/uL (150-450); RED BLOOD COUNT 4.09 10^6/uL (4.00-5.40); WHITE BLOOD COUNT 7.3 10^3/uL (4.0-10.0)
[2022-03-28 14:01] LABS: ALBUMIN 4.1 GM/DL (3.2-5.2); ALT/SGPT 25 U/L (12-78); BILIRUBIN,TOTAL 1.2 MG/DL (0.2-1.0); BLOOD UREA NITROGEN 16 MG/DL (7-18); CALCIUM LEVEL 9.3 MG/DL (8.5-10.1); CARBON DIOXIDE LEVEL 29 MEQ/L (21-32); CHLORIDE LEVEL 104 MEQ/L (98-107); CHOLESTEROL LEVEL 228 MG/DL (<200); CHOLESTEROL RISK RATIO 4.145 (<5); CREATININE FOR GFR 0.73 MG/DL (0.55-1.30); GLOMERULAR FILTRATION RATE > 60.0 (>51); GLUCOSE, FASTING 92 MG/DL (70-100); HDL CHOLESTEROL 55 MG/DL (>40); LDL CHOLESTEROL 121 MG/DL (<100); NON-HDL-C 173 MG/DL; SODIUM LEVEL 138 MEQ/L (136-145); TOTAL PROTEIN 7.2 GM/DL (6.4-8.2); TRIGLYCERIDES LEVEL 261 MG/DL (<150)
[2022-03-28 14:05] LABS: TOTAL 25(OH) VITAMIN D 58.6 NG/ML (30.0-100.0)
== END ==
LOC: M PLALAB 11:36
PROVIDERS: ATTEND Nurse Practitioner Family
DX: E03.9 Hypothyroidism, unspecified (principal); I10 Essential (primary) hypertension; E55.9 Vitamin D deficiency, unspecified; E78.5 Hyperlipidemia, unspecified

== ENCOUNTER → 2022-04-02 | Outpatient (REF) | payer MEDICARE | LOC: M LAB REF 13:14 | PROVIDERS: ATTEND Physician Assistant Medical | DX: J06.9 Acute upper respiratory infection, unspecified (principal) ==

== ENCOUNTER → 2022-08-24 | Outpatient (REF) | payer MEDICARE, OTHER ==
[2022-08-24 13:59] LABS: BASO % 0.6 % (0.0-1.0); EOS # 0.2 10^3/uL (0.0-0.5); EOS % 3.3 % (0.0-3.0); HEMATOCRIT 40.4 % (36.0-47.0); HEMOGLOBIN 12.7 g/dl (12.0-15.5); LYMPH # 1.5 10^3/uL (1.5-5.0); LYMPH % 26.9 % (24.0-44.0); MEAN CORPUSCULAR HEMOGLOBIN 30.2 pg (27.0-33.0); MEAN CORPUSCULAR HGB CONC 31.4 g/dl (32.0-36.5); MEAN CORPUSCULAR VOLUME 96.2 fl (80.0-96.0); MONO # 0.3 10^3/uL (0.0-0.8); MONO % 5.4 % (2.0-8.0); NEUTROPHILS # 3.4 10^3/uL (1.5-8.5); NEUTROPHILS % 63.4 % (36.0-66.0); PLATELET COUNT, AUTOMATED 306 10^3/uL (150-450); WHITE BLOOD COUNT 5.4 10^3/uL (4.0-10.0)
[2022-08-24 14:08] LABS: FREE T4 1.21 NG/DL (0.89-1.76); THYROID STIMULATING HORMONE 2.695 uIU/ML (0.55-4.78)
[2022-08-24 14:10] LABS: ALBUMIN 4.2 G/DL (3.2-5.2); ALKALINE PHOSPHATASE 72 U/L (46-116); ALT/SGPT 21 U/L (7.0-40); AST/SGOT 22 U/L (<34); BILIRUBIN,TOTAL 1.4 MG/DL (0.3-1.2); BLOOD UREA NITROGEN 14 MG/DL (9-23); CALCIUM LEVEL 9.5 MG/DL (8.5-10.1); CARBON DIOXIDE LEVEL 29 MMOL/L (20-31); CHLORIDE LEVEL 102 MMOL/L (98-107); CHOLESTEROL LEVEL 209 MG/DL (<200); CHOLESTEROL RISK RATIO 3.84 (<5); CREATININE FOR GFR 0.67 MG/DL (0.55-1.30); GLOMERULAR FILTRATION RATE > 60.0 (>51); GLUCOSE, FASTING 97 MG/DL (60-100); HDL CHOLESTEROL 54.4 MG/DL (>40); NON-HDL-C 155 MG/DL; POTASSIUM SERUM 4.2 MMOL/L (3.5-5.1); SODIUM LEVEL 140 MMOL/L (136-145); TOTAL PROTEIN 7.2 G/DL (5.7-8.2); TRIGLYCERIDES LEVEL 233 MG/DL (<150)
[2022-08-24 14:15] LABS: HEMOGLOBIN A1c 5.4 % (4.0-6.0)
== END ==
LOC: M LABWUC 12:23
PROVIDERS: ATTEND Nurse Practitioner Family
DX: E03.9 Hypothyroidism, unspecified (principal); I10 Essential (primary) hypertension; E78.5 Hyperlipidemia, unspecified; R73.09 Other abnormal glucose

== ENCOUNTER → 2022-08-29 | Outpatient (REF) | payer MEDICARE, OTHER ==
[2022-08-29 18:45] LABS: FOLATE > 24.0 NG/ML (>5.4)
[2022-08-29 20:06] LABS: VITAMIN B12 LEVEL 562 PG/ML (211-911)
== END ==
LOC: M PLALAB 17:10
PROVIDERS: ATTEND Nurse Practitioner Family
DX: R20.0 Anesthesia of skin (principal)

== ENCOUNTER → 2022-10-03 | Outpatient (CLI) | payer MEDICARE | LOC: M PLAIMG 10:39 | PROVIDERS: ATTEND Physician Assistant | DX: J32.0 Chronic maxillary sinusitis (principal) ==

== ENCOUNTER → 2022-12-15 | Outpatient (CLI) | payer MEDICARE, OTHER | LOC: M PLARAD 15:16 | PROVIDERS: ATTEND Physician Assistant | DX: R22.0 Localized swelling, mass and lump, head (principal); R20.2 Paresthesia of skin; R51.9 Headache, unspecified; G89.29 Other chronic pain ==

== ENCOUNTER → 2023-01-26 | Outpatient (CLI) | payer MEDICARE, OTHER ==
[2023-01-26 14:22] LABS: BASO % 0.6 % (0.0-1.0); EOS # 0.2 10^3/uL (0.0-0.5); EOS % 2.3 % (0.0-3.0); HEMATOCRIT 41.4 % (36.0-47.0); HEMOGLOBIN 13.4 g/dl (12.0-15.5); LYMPH # 1.8 10^3/uL (1.5-5.0); LYMPH % 25.3 % (24.0-44.0); MEAN CORPUSCULAR HEMOGLOBIN 30.8 pg (27.0-33.0); MEAN CORPUSCULAR HGB CONC 32.4 g/dl (32.0-36.5); MEAN CORPUSCULAR VOLUME 95.2 fl (80.0-96.0); MONO # 0.4 10^3/uL (0.0-0.8); NEUTROPHILS # 4.7 10^3/uL (1.5-8.5); NEUTROPHILS % 65.4 % (36.0-66.0); PLATELET COUNT, AUTOMATED 321 10^3/uL (150-450); RED BLOOD COUNT 4.35 10^6/uL (4.00-5.40); WHITE BLOOD COUNT 7.1 10^3/uL (4.0-10.0)
[2023-01-26 14:38] LABS: HEMOGLOBIN A1c 5.6 % (4.0-6.0)
[2023-01-26 14:41] LABS: ALBUMIN 4.6 G/DL (3.2-5.2); ALKALINE PHOSPHATASE 63 U/L (46-116); ALT/SGPT 21 U/L (7.0-40); AST/SGOT 19 U/L (<34); BILIRUBIN,TOTAL 1.6 MG/DL (0.3-1.2); BLOOD UREA NITROGEN 18 MG/DL (9-23); CALCIUM LEVEL 9.8 MG/DL (8.5-10.1); CARBON DIOXIDE LEVEL 28 MMOL/L (20-31); CHLORIDE LEVEL 100 MMOL/L (98-107); CHOLESTEROL LEVEL 233 MG/DL (<200); CHOLESTEROL RISK RATIO 4.06 (<5); CREATININE FOR GFR 0.77 MG/DL (0.55-1.30); FREE T4 1.44 NG/DL (0.89-1.76); GLOMERULAR FILTRATION RATE > 60.0 (>51); GLUCOSE, FASTING 98 MG/DL (60-100); HDL CHOLESTEROL 57.3 MG/DL (>40); LDL CHOLESTEROL 129.5 MG/DL (<100); NON-HDL-C 175.7 MG/DL; POTASSIUM SERUM 4.4 MMOL/L (3.5-5.1); SODIUM LEVEL 136 MMOL/L (136-145); TOTAL PROTEIN 7.7 G/DL (5.7-8.2); TRIGLYCERIDES LEVEL 231 MG/DL (<150)
[2023-01-26 14:42] LABS: THYROID STIMULATING HORMONE 2.206 uIU/ML (0.55-4.78)
[2023-01-26 14:43] LABS: TOTAL 25(OH) VITAMIN D 56.2 NG/ML (20.0-100.0)
== END ==
LOC: M PLALAB 10:49
PROVIDERS: ATTEND Nurse Practitioner Family
DX: R06.02 Shortness of breath (principal); E03.9 Hypothyroidism, unspecified; E55.9 Vitamin D deficiency, unspecified; E78.5 Hyperlipidemia, unspecified; R73.09 Other abnormal glucose; I10 Essential (primary) hypertension

== ENCOUNTER 2023-04-30 20:28 | Emergency (ER) | payer MEDICARE, OTHER ==
[~2023-04-30] VITALS: Ht 160 cm; Wt 104.5 kg
[~2023-04-30 20:28] MED LIST changes: -GABA-283 PO; +GABA-284 PO
[2023-05-01] MEDS ORDERED: KETOROLAC 30 MG/ML 1ML VIAL IM ONE (06:50)
[2023-05-01 06:57] VITALS: BP 119/65; TEMP 96; O2SAT 96
== END 2023-05-01 07:27 | disposition home or self-care (01) ==
LOC: M ED 20:28
DX: S80.911A Unspecified superficial injury of right knee, initial encounter (principal); W01.0XXA Fall on same level from slipping, tripping and stumbling without subsequent striking against object, initial encounter; Y92.830 Public park as the place of occurrence of the external cause; Y93.01 Activity, walking, marching and hiking; Y99.8 Other external cause status; I10 Essential (primary) hypertension; E03.9 Hypothyroidism, unspecified; M54.9 Dorsalgia, unspecified; Z79.899 Other long term (current) drug therapy
CPT/HCPCS: 73502; 73564; 96372; 99284; J1885

== ENCOUNTER → 2023-05-29 | Outpatient (CLI) | payer MEDICARE, MEDICAID ==
[2023-05-29 13:51] LABS: BASO % 0.5 % (0.0-1.0); EOS # 0.1 10^3/uL (0.0-0.5); EOS % 2.3 % (0.0-3.0); HEMATOCRIT 39.4 % (36.0-47.0); HEMOGLOBIN 12.8 g/dl (12.0-15.5); LYMPH # 1.3 10^3/uL (1.5-5.0); LYMPH % 21.8 % (24.0-44.0); MEAN CORPUSCULAR HEMOGLOBIN 30.7 pg (27.0-33.0); MEAN CORPUSCULAR HGB CONC 32.5 g/dl (32.0-36.5); MEAN CORPUSCULAR VOLUME 94.5 fl (80.0-96.0); MONO # 0.3 10^3/uL (0.0-0.8); MONO % 5.2 % (2.0-8.0); NEUTROPHILS % 69.9 % (36.0-66.0); PLATELET COUNT, AUTOMATED 286 10^3/uL (150-450); RED BLOOD COUNT 4.17 10^6/uL (4.00-5.40); WHITE BLOOD COUNT 5.8 10^3/uL (4.0-10.0)
[2023-05-29 13:55] LABS: HEMOGLOBIN A1c 5.4 % (4.0-6.0)
[2023-05-29 14:12] LABS: ALBUMIN 4.2 G/DL (3.2-5.2); ALKALINE PHOSPHATASE 70 U/L (46-116); ALT/SGPT 20 U/L (7.0-40); AST/SGOT 12 U/L (<34); BILIRUBIN,TOTAL 1.3 MG/DL (0.3-1.2); BLOOD UREA NITROGEN 14 MG/DL (9-23); CALCIUM LEVEL 9.5 MG/DL (8.5-10.1); CARBON DIOXIDE LEVEL 28 MMOL/L (20-31); CHLORIDE LEVEL 103 MMOL/L (98-107); CHOLESTEROL LEVEL 226 MG/DL (<200); CHOLESTEROL RISK RATIO 3.93 (<5); CREATININE FOR GFR 0.67 MG/DL (0.55-1.30); FREE T4 1.02 NG/DL (0.89-1.76); GLOMERULAR FILTRATION RATE > 60.0 (>51); GLUCOSE, FASTING 87 MG/DL (60-100); HDL CHOLESTEROL 57.5 MG/DL (>40); LDL CHOLESTEROL 129.7 MG/DL (<100); NON-HDL-C 168.5 MG/DL; POTASSIUM SERUM 4.2 MMOL/L (3.5-5.1); SODIUM LEVEL 138 MMOL/L (136-145); THYROID STIMULATING HORMONE 2.579 uIU/ML (0.55-4.78); TOTAL 25(OH) VITAMIN D 50.2 NG/ML (20.0-100.0); TOTAL PROTEIN 7.4 G/DL (5.7-8.2); TRIGLYCERIDES LEVEL 194 MG/DL (<150); VITAMIN B12 LEVEL 591 PG/ML (211-911)
== END ==
LOC: M PLALAB 11:28
PROVIDERS: ATTEND Nurse Practitioner Family
DX: E03.9 Hypothyroidism, unspecified (principal)

== ENCOUNTER → 2023-06-12 | Outpatient (CLI) | payer MEDICARE, OTHER | LOC: M WHC 11:02 | PROVIDERS: ATTEND Nurse Practitioner Women's Health | DX: Z15.01 Genetic susceptibility to malignant neoplasm of breast (principal); Z91.89 Other specified personal risk factors, not elsewhere classified; Z12.31 Encounter for screening mammogram for malignant neoplasm of breast ==

== ENCOUNTER → 2023-08-21 | Outpatient (CLI) | payer MEDICARE, OTHER ==
[2023-08-21 14:20] LABS: BASO % 0.7 % (0.0-1.0); EOS # 0.1 10^3/uL (0.0-0.5); EOS % 2.6 % (0.0-3.0); HEMATOCRIT 40.8 % (36.0-47.0); HEMOGLOBIN 13.3 g/dl (12.0-15.5); LYMPH # 1.5 10^3/uL (1.5-5.0); LYMPH % 27.1 % (24.0-44.0); MEAN CORPUSCULAR HEMOGLOBIN 31.1 pg (27.0-33.0); MEAN CORPUSCULAR HGB CONC 32.6 g/dl (32.0-36.5); MEAN CORPUSCULAR VOLUME 95.3 fl (80.0-96.0); MONO # 0.3 10^3/uL (0.0-0.8); MONO % 4.6 % (2.0-8.0); NEUTROPHILS # 3.5 10^3/uL (1.5-8.5); NEUTROPHILS % 64.6 % (36.0-66.0); PLATELET COUNT, AUTOMATED 315 10^3/uL (150-450); RED BLOOD COUNT 4.28 10^6/uL (4.00-5.40); WHITE BLOOD COUNT 5.4 10^3/uL (4.0-10.0)
[2023-08-21 14:53] LABS: CK-MB VALUE MASS < 1.0 NG/ML (<3.6)
[2023-08-21 14:57] LABS: ALBUMIN 4.1 G/DL (3.2-5.2); ALKALINE PHOSPHATASE 68 U/L (46-116); ALT/SGPT 23 U/L (7.0-40); AST/SGOT 18 U/L (<34); BILIRUBIN,TOTAL 1.3 MG/DL (0.3-1.2); BLOOD UREA NITROGEN 16 MG/DL (9-23); CALCIUM LEVEL 9.6 MG/DL (8.5-10.1); CARBON DIOXIDE LEVEL 27 MMOL/L (20-31); CHLORIDE LEVEL 104 MMOL/L (98-107); CHOLESTEROL LEVEL 237 MG/DL (<200); CPK CREATINE PHOSPHOKINASE 132 U/L (34-145); CREATININE FOR GFR 0.65 MG/DL (0.55-1.30); GLOMERULAR FILTRATION RATE > 60.0 (>51); GLUCOSE, FASTING 94 MG/DL (60-100); HDL CHOLESTEROL 59.2 MG/DL (>40); LDL CHOLESTEROL 140.8 MG/DL (<100); MB/CK RELATIVE INDEX 0.75 (< OR =4); NON-HDL-C 177.8 MG/DL; POTASSIUM SERUM 4.3 MMOL/L (3.5-5.1); SODIUM LEVEL 142 MMOL/L (136-145); TOTAL PROTEIN 7.2 G/DL (5.7-8.2); TRIGLYCERIDES LEVEL 185 MG/DL (<150)
[2023-08-21 14:59] LABS: FREE T4 1.17 NG/DL (0.89-1.76)
== END ==
LOC: M PLALAB 09:55
PROVIDERS: ATTEND Nurse Practitioner Family
DX: R07.9 Chest pain, unspecified (principal); E07.9 Disorder of thyroid, unspecified

== ENCOUNTER → 2023-08-30 | Outpatient (CLI) | payer MEDICARE, OTHER | LOC: M WHC 14:59 | PROVIDERS: ATTEND Nurse Practitioner Family | DX: R42 Dizziness and giddiness (principal); J32.9 Chronic sinusitis, unspecified; I65.23 Occlusion and stenosis of bilateral carotid arteries ==

== ENCOUNTER → 2023-09-19 | Outpatient (CLI) | payer MEDICARE, OTHER ==
[2023-09-19 13:08] LABS: RHEUMATOID FACTOR QUANT < 3.5 IU/ML (<14)
[2023-09-19 13:09] LABS: THYROID STIMULATING HORMONE 1.333 uIU/ML (0.55-4.78)
[2023-09-19 13:10] LABS: FOLATE > 24.0 NG/ML (>5.4); FREE THYROXINE INDEX 3.1 % (1.3-4.8); T UPTAKE 38.9 % (22.5-37.0)
[2023-09-19 13:11] LABS: VITAMIN B12 LEVEL 654 PG/ML (211-911)
== END ==
LOC: M PLALAB 10:31
PROVIDERS: ATTEND Psychiatry & Neurology Neurology
DX: E03.9 Hypothyroidism, unspecified (principal); E53.8 Deficiency of other specified B group vitamins

== ENCOUNTER 2023-11-14 12:20 | Emergency (ER) | payer MEDICARE, OTHER ==
[~2023-11-14] VITALS: Ht 160 cm; Wt 96.6 kg
[2023-11-14] MEDS: KETOROLAC 30 MG/ML 1ML VIAL IV ONE (13:35)
[2023-11-14 14:02] LABS: BASO % 0.5 % (0.0-1.0); EOS # 0.1 10^3/uL (0.0-0.5); EOS % 1.3 % (0.0-3.0); HEMATOCRIT 39.8 % (36.0-47.0); HEMOGLOBIN 13.2 g/dl (12.0-15.5); LYMPH # 1.4 10^3/uL (1.5-5.0); LYMPH % 22.6 % (24.0-44.0); MEAN CORPUSCULAR HGB CONC 33.2 g/dl (32.0-36.5); MEAN CORPUSCULAR VOLUME 93.4 fl (80.0-96.0); MONO # 0.3 10^3/uL (0.0-0.8); MONO % 4.9 % (2.0-8.0); NEUTROPHILS # 4.3 10^3/uL (1.5-8.5); NEUTROPHILS % 70.5 % (36.0-66.0); PLATELET COUNT, AUTOMATED 314 10^3/uL (150-450); RED BLOOD COUNT 4.26 10^6/uL (4.00-5.40); WHITE BLOOD COUNT 6.1 10^3/uL (4.0-10.0)
[2023-11-14 14:12] LABS: INR 1.06; PROTHROMBIN TIME 13.5 SECONDS (12.5-14.5)
[2023-11-14 14:13] LABS: PARTIAL THROMBOPLASTIN TIME 27.7 SECONDS (24.8-34.2)
[2023-11-14 14:15] LABS: D-DIMER QUANT 0.33 ug/mL (<0.5)
[2023-11-14] MEDS: ASPIRIN 81MG CHEW TABLET PO ONE (14:21)
[2023-11-14 14:26] LABS: CPK CREATINE PHOSPHOKINASE 134 U/L (34-145)
[2023-11-14 14:27] LABS: ALBUMIN 4.3 G/DL (3.2-5.2); ALKALINE PHOSPHATASE 65 U/L (46-116); ALT/SGPT 17 U/L (7.0-40); AST/SGOT 12 U/L (<34); BILIRUBIN,DIRECT 0.3 MG/DL (<0.4); BILIRUBIN,TOTAL 1.3 MG/DL (0.3-1.2); BLOOD UREA NITROGEN 22 MG/DL (9-23); CALCIUM LEVEL 9.7 MG/DL (8.5-10.1); CARBON DIOXIDE LEVEL 27 MMOL/L (20-31); CHLORIDE LEVEL 103 MMOL/L (98-107); CK-MB VALUE MASS < 1.0 NG/ML (<3.6); CREATININE FOR GFR 0.71 MG/DL (0.55-1.30); GLOMERULAR FILTRATION RATE > 60.0 (>51); GLUCOSE, FASTING 102 MG/DL (60-100); MB/CK RELATIVE INDEX 0.74 (< OR =4); POTASSIUM SERUM 4.2 MMOL/L (3.5-5.1); SODIUM LEVEL 137 MMOL/L (136-145); TOTAL PROTEIN 7.2 G/DL (5.7-8.2)
[2023-11-14 14:30] LABS: THYROID STIMULATING HORMONE 0.537 uIU/ML (0.55-4.78)
[2023-11-14 14:34] LABS: FREE T4 1.41 NG/DL (0.89-1.76)
[2023-11-14] MEDS: MORPHINE 2 MG/ML 1ML VIAL IV ONE (15:02)
[2023-11-14 15:28] LABS: CK-MB VALUE MASS < 1.0 NG/ML (<3.6)
[2023-11-14 15:29] LABS: CPK CREATINE PHOSPHOKINASE 131 U/L (34-145); MB/CK RELATIVE INDEX 0.76 (< OR =4)
[2023-11-14 16:28] VITALS: BP 131/78; TEMP 98.2; O2SAT 98
== END 2023-11-14 16:29 | disposition home or self-care (01) ==
LOC: M ED 12:20
DX: M50.30 Other cervical disc degeneration, unspecified cervical region (principal); Z79.899 Other long term (current) drug therapy; Z79.1 Long term (current) use of non-steroidal anti-inflammatories (NSAID); Z79.810 Long term (current) use of selective estrogen receptor modulators (SERMs)

== ENCOUNTER → 2023-12-03 | Outpatient (REF) | payer MEDICARE, OTHER ==
[2023-12-03 18:33] LABS: AMORPHOUS SEDIMENT SMALL (NEGATIVE); APPEARANCE, URINE CLOUDY (CLEAR); BACTERIA, URINE AUTO 1+ (NEGATIVE); BILIRUBIN, URINE AUTO NEGATIVE (NEGATIVE); BLOOD, URINE BLOOD NEGATIVE (NEGATIVE); COLOR, URINE AMBER (YELLOW); GLUCOSE, URINE (UA) AUTO NEGATIVE (NEGATIVE); KETONE, URINE AUTO NEGATIVE (NEGATIVE); LEUKOCYTE ESTERASE, URINE AUTO 1+ (NEGATIVE); MUCUS, URINE SMALL (NEGATIVE); NITRITE, URINE AUTO POSITIVE (NEGATIVE); PROTEIN, URINE AUTO NEGATIVE (NEGATIVE); RBC, URINE AUTO 0 /HPF (0-3); SPECIFIC GRAVITY URINE AUTO 1.025 (1.002-1.035); SQUAMOUS EPITHELIAL CELL UR AU 0 /HPF (0-6); WBC, URINE AUTO 21 /HPF (0-3)
== END ==
LOC: M SFHCPLAZ 17:31
PROVIDERS: ATTEND Nurse Practitioner Family
DX: R39.9 Unspecified symptoms and signs involving the genitourinary system (principal)

== ENCOUNTER → 2024-01-23 | Outpatient (CLI) | payer MEDICARE, OTHER ==
[2024-01-23 13:24] LABS: C REACTIVE PROTEIN QUANTITATIV < 0.40 MG/DL (<1.0)
[2024-01-23 13:26] LABS: ALBUMIN 3.9 G/DL (3.2-5.2); ALKALINE PHOSPHATASE 68 U/L (46-116); ALT/SGPT 19 U/L (7.0-40); AST/SGOT 13 U/L (<34); BILIRUBIN,TOTAL 1.4 MG/DL (0.3-1.2); BLOOD UREA NITROGEN 17 MG/DL (9-23); CALCIUM LEVEL 9.6 MG/DL (8.5-10.1); CARBON DIOXIDE LEVEL 29 MMOL/L (20-31); CHLORIDE LEVEL 104 MMOL/L (98-107); CHOLESTEROL LEVEL 220 MG/DL (<200); CREATININE FOR GFR 0.69 MG/DL (0.55-1.30); FREE T4 1.23 NG/DL (0.89-1.76); GLOMERULAR FILTRATION RATE > 60.0 (>51); GLUCOSE, FASTING 98 MG/DL (60-100); HDL CHOLESTEROL 48.8 MG/DL (>40); LDL CHOLESTEROL 133.8 MG/DL (<100); NON-HDL-C 171.2 MG/DL; POTASSIUM SERUM 4.4 MMOL/L (3.5-5.1); SODIUM LEVEL 139 MMOL/L (136-145); THYROID STIMULATING HORMONE 0.553 uIU/ML (0.55-4.78); TRIGLYCERIDES LEVEL 187 MG/DL (<150)
[2024-01-23 13:27] LABS: RHEUMATOID FACTOR QUANT < 3.5 IU/ML (<14); TOTAL 25(OH) VITAMIN D 67.7 NG/ML (20.0-100.0)
[2024-01-23 13:28] LABS: BASO % 0.6 % (0.0-1.0); EOS # 0.2 10^3/uL (0.0-0.5); EOS % 3.1 % (0.0-3.0); HEMATOCRIT 40.4 % (36.0-47.0); HEMOGLOBIN 13.3 g/dl (12.0-15.5); LYMPH # 1.3 10^3/uL (1.5-5.0); LYMPH % 25.5 % (24.0-44.0); MEAN CORPUSCULAR HEMOGLOBIN 31.4 pg (27.0-33.0); MEAN CORPUSCULAR HGB CONC 32.9 g/dl (32.0-36.5); MEAN CORPUSCULAR VOLUME 95.3 fl (80.0-96.0); MONO # 0.3 10^3/uL (0.0-0.8); MONO % 5.8 % (2.0-8.0); NEUTROPHILS # 3.4 10^3/uL (1.5-8.5); NEUTROPHILS % 64.8 % (36.0-66.0); PLATELET COUNT, AUTOMATED 310 10^3/uL (150-450); RED BLOOD COUNT 4.24 10^6/uL (4.00-5.40); WHITE BLOOD COUNT 5.2 10^3/uL (4.0-10.0)
[2024-01-23 13:43] LABS: ERYTHROCYTE SEDIMENTATION RATE 16 mm/hr (0-30)
== END ==
LOC: M PLALAB 09:54
PROVIDERS: ATTEND Nurse Practitioner Family
DX: E78.5 Hyperlipidemia, unspecified (principal)

== ENCOUNTER → 2024-04-30 | Outpatient (REF) | payer MEDICARE, OTHER, MEDICAID | LOC: M SFHCPLAZ 12:45 | PROVIDERS: ATTEND Physician Assistant Medical | DX: R30.0 Dysuria (principal) ==

== ENCOUNTER → 2024-05-29 | Outpatient (CLI) | payer MEDICARE, OTHER ==
[~2024-05-29] MED LIST changes: +GABA-1490 PO; -GABA600T4 PO
[2024-05-29 15:27] LABS: BASO % 0.5 % (0.0-1.0); EOS # 0.1 10^3/uL (0.0-0.5); EOS % 2.3 % (0.0-3.0); HEMATOCRIT 41.5 % (36.0-47.0); HEMOGLOBIN 13.7 g/dl (12.0-15.5); LYMPH # 1.4 10^3/uL (1.5-5.0); LYMPH % 25.2 % (24.0-44.0); MEAN CORPUSCULAR HEMOGLOBIN 30.9 pg (27.0-33.0); MEAN CORPUSCULAR VOLUME 93.5 fl (80.0-96.0); MONO # 0.3 10^3/uL (0.0-0.8); NEUTROPHILS # 3.7 10^3/uL (1.5-8.5); NEUTROPHILS % 65.8 % (36.0-66.0); PLATELET COUNT, AUTOMATED 272 10^3/uL (150-450); RED BLOOD COUNT 4.44 10^6/uL (4.00-5.40); WHITE BLOOD COUNT 5.6 10^3/uL (4.0-10.0)
[2024-05-29 15:32] LABS: ALBUMIN 4.1 G/DL (3.2-5.2); ALKALINE PHOSPHATASE 70 U/L (46-116); ALT/SGPT 22 U/L (7.0-40); AST/SGOT 15 U/L (<34); BILIRUBIN,TOTAL 1.3 MG/DL (0.3-1.2); BLOOD UREA NITROGEN 17 MG/DL (9-23); CARBON DIOXIDE LEVEL 26 MMOL/L (20-31); CHLORIDE LEVEL 107 MMOL/L (98-107); CHOLESTEROL LEVEL 225 MG/DL (<200); CHOLESTEROL RISK RATIO 3.81 (<5); CREATININE FOR GFR 0.68 MG/DL (0.55-1.30); GLOMERULAR FILTRATION RATE > 60.0 (>51); GLUCOSE, FASTING 90 MG/DL (60-100); LDL CHOLESTEROL 126.6 MG/DL (<100); POTASSIUM SERUM 4.3 MMOL/L (3.5-5.1); SODIUM LEVEL 139 MMOL/L (136-145); TOTAL PROTEIN 7.2 G/DL (5.7-8.2); TRIGLYCERIDES LEVEL 197 MG/DL (<150)
[2024-05-29 15:36] LABS: FREE T4 1.59 NG/DL (0.89-1.76); THYROID STIMULATING HORMONE 0.369 uIU/ML (0.55-4.78)
[2024-05-29 15:51] LABS: HEMOGLOBIN A1c 5.6 % (4.0-6.0)
== END ==
LOC: M PLALAB 11:14
PROVIDERS: ATTEND Nurse Practitioner Family
DX: I10 Essential (primary) hypertension (principal)

== ENCOUNTER → 2024-05-31 | Outpatient (REF) | payer MEDICARE, OTHER | LOC: M LAB REF 20:05 | PROVIDERS: ATTEND Physician Assistant Medical | DX: J02.9 Acute pharyngitis, unspecified (principal) ==

== ENCOUNTER → 2024-06-17 | Outpatient (CLI) | payer MEDICARE, OTHER | LOC: M WHC 12:34 | PROVIDERS: ATTEND Nurse Practitioner Family | DX: Z13.820 Encounter for screening for osteoporosis (principal); Z13.21 Encounter for screening for nutritional disorder; M81.0 Age-related osteoporosis without current pathological fracture ==

== ENCOUNTER → 2024-07-30 | Outpatient (CLI) | payer MEDICARE, OTHER | LOC: M SLEEP HO 10:34 | PROVIDERS: ATTEND Internal Medicine Pulmonary Disease | DX: R06.83 Snoring (principal) ==

== ENCOUNTER → 2024-08-08 | Outpatient (CLI) | payer MEDICARE, OTHER | LOC: M PLAIMG 16:12 | DX: M47.816 Spondylosis without myelopathy or radiculopathy, lumbar region (principal); M25.551 Pain in right hip ==

== ENCOUNTER → 2024-08-12 | Outpatient (CLI) | payer MEDICARE, OTHER | LOC: M RAD 08:06 | PROVIDERS: ATTEND Otolaryngology | DX: J30.2 Other seasonal allergic rhinitis (principal) ==

== ENCOUNTER → 2024-08-18 | Outpatient (CLI) | payer MEDICAID, MEDICARE ==
[2024-08-18 12:43] LABS: FREE T4 0.76 NG/DL (0.89-1.76); THYROID STIMULATING HORMONE 27.592 uIU/ML (0.55-4.78)
== END ==
LOC: M PLALAB 09:25
PROVIDERS: ATTEND Nurse Practitioner Family
DX: E03.9 Hypothyroidism, unspecified (principal)

== ENCOUNTER → 2024-10-22 | Outpatient (CLI) | payer MEDICARE, MEDICAID ==
[2024-10-22 17:12] LABS: HEMATOCRIT 39.3 % (36.0-47.0); HEMOGLOBIN 13.2 g/dl (12.0-15.5); MEAN CORPUSCULAR HEMOGLOBIN 31.6 pg (27.0-33.0); MEAN CORPUSCULAR HGB CONC 33.6 g/dl (32.0-36.5); PLATELET COUNT, AUTOMATED 287 10^3/uL (150-450); RED BLOOD COUNT 4.18 10^6/uL (4.00-5.40); WHITE BLOOD COUNT 7.2 10^3/uL (4.0-10.0)
== END ==
LOC: M LRY 11:53
PROVIDERS: ATTEND Physician Assistant Medical
DX: K62.5 Hemorrhage of anus and rectum (principal)

== ENCOUNTER → 2024-10-22 | Outpatient (CLI) | payer MEDICARE | LOC: M PLAIMG 12:37 | PROVIDERS: ATTEND Physician Assistant Medical | DX: R19.4 Change in bowel habit (principal); K62.5 Hemorrhage of anus and rectum; R10.84 Generalized abdominal pain ==

== ENCOUNTER → 2024-11-01 | Outpatient (CLI) | payer MEDICAID, MEDICARE | LOC: M SLEEP 20:00 | PROVIDERS: ATTEND Internal Medicine Pulmonary Disease | DX: G47.61 Periodic limb movement disorder (principal) ==

== ENCOUNTER → 2024-12-01 | Outpatient (REF) | payer MEDICARE ==
[~2024-12-01] MED LIST changes: +SYNT75TA PO; +VITA100093 PO
[2024-12-01 14:27] LABS: FREE T4 1.04 NG/DL (0.89-1.76); THYROID STIMULATING HORMONE 8.786 uIU/ML (0.55-4.78)
[2024-12-01 14:28] LABS: BASO % 0.5 % (0.0-1.0); EOS # 0.2 10^3/uL (0.0-0.5); EOS % 2.7 % (0.0-3.0); HEMOGLOBIN 13.7 g/dl (12.0-15.5); LYMPH # 1.4 10^3/uL (1.5-5.0); LYMPH % 22.2 % (24.0-44.0); MEAN CORPUSCULAR HEMOGLOBIN 31.1 pg (27.0-33.0); MEAN CORPUSCULAR HGB CONC 32.6 g/dl (32.0-36.5); MEAN CORPUSCULAR VOLUME 95.2 fl (80.0-96.0); MONO # 0.3 10^3/uL (0.0-0.8); MONO % 4.6 % (2.0-8.0); NEUTROPHILS # 4.4 10^3/uL (1.5-8.5); NEUTROPHILS % 69.7 % (36.0-66.0); PLATELET COUNT, AUTOMATED 285 10^3/uL (150-450); RED BLOOD COUNT 4.41 10^6/uL (4.00-5.40); WHITE BLOOD COUNT 6.3 10^3/uL (4.0-10.0)
== END ==
LOC: M SFHCPLAZ 12:53
PROVIDERS: ATTEND Nurse Practitioner Family
DX: E03.9 Hypothyroidism, unspecified (principal)

== ENCOUNTER 2024-12-18 07:27 | Day surgery (SDC) | payer MEDICAID, MEDICARE ==
[~2024-12-18] VITALS: Ht 157.5 cm; Wt 93.3 kg
[2024-12-18] MEDS ORDERED: ONDANSETRON 4MG 2ML VIAL IV PRN (08:10)
[2024-12-18] MEDS ORDERED: propofoL 200 MG/20 ML VIAL As Ordered ONE (08:25)
[2024-12-18] MEDS ORDERED: LIDOCAINE 2% INJ 100 MG/5 ML SYRINGE As Ordered ONE (08:25)
[2024-12-18 08:51] VITALS: TEMP 97.7
[2024-12-18 09:14] VITALS: BP 132/63; O2SAT 99
== END 2024-12-18 09:14 | disposition home or self-care (01) ==
LOC: M OPP 07:27
PROVIDERS: ATTEND Internal Medicine Gastroenterology
DX: K57.30 Diverticulosis of large intestine without perforation or abscess without bleeding (principal); K64.8 Other hemorrhoids; Z15.09 Genetic susceptibility to other malignant neoplasm; Z86.0100 Personal history of colon polyps, unspecified; G47.30 Sleep apnea, unspecified; Z79.899 Other long term (current) drug therapy

== ENCOUNTER → 2024-12-31 | Outpatient (CLI) | payer MEDICARE ==
[2024-12-31 18:17] LABS: PERCENT SATURATION 26.4 % (13.2-45.0)
[2024-12-31 18:19] LABS: FERRITIN 54.9 NG/ML (7.3-270.7)
== END ==
LOC: M PLALAB 15:02
PROVIDERS: ATTEND Internal Medicine Pulmonary Disease
DX: G47.61 Periodic limb movement disorder (principal)

== ENCOUNTER → 2025-01-14 | Outpatient (CLI) | payer MEDICARE ==
[2025-01-14 10:14] LABS: BASO % 0.8 % (0.0-1.0); EOS # 0.2 10^3/uL (0.0-0.5); EOS % 3.7 % (0.0-3.0); HEMATOCRIT 40.6 % (36.0-47.0); HEMOGLOBIN 13.3 g/dl (12.0-15.5); LYMPH # 1.3 10^3/uL (1.5-5.0); LYMPH % 26.3 % (24.0-44.0); MEAN CORPUSCULAR HEMOGLOBIN 31.1 pg (27.0-33.0); MEAN CORPUSCULAR HGB CONC 32.8 g/dl (32.0-36.5); MEAN CORPUSCULAR VOLUME 95.1 fl (80.0-96.0); MONO # 0.3 10^3/uL (0.0-0.8); MONO % 5.7 % (2.0-8.0); NEUTROPHILS # 3.2 10^3/uL (1.5-8.5); NEUTROPHILS % 63.3 % (36.0-66.0); PLATELET COUNT, AUTOMATED 290 10^3/uL (150-450); RED BLOOD COUNT 4.27 10^6/uL (4.00-5.40); WHITE BLOOD COUNT 5.1 10^3/uL (4.0-10.0)
[2025-01-14 10:42] LABS: FREE T4 1.24 NG/DL (0.89-1.76); HEMOGLOBIN A1c 5.4 % (4.0-6.0); THYROID STIMULATING HORMONE 2.808 uIU/ML (0.55-4.78)
[2025-01-14 10:43] LABS: ALBUMIN 4.1 G/DL (3.2-5.2); ALKALINE PHOSPHATASE 69 U/L (35-104); ALT/SGPT 21 U/L (7.0-40); AST/SGOT 19 U/L (<34); BILIRUBIN,TOTAL 1.2 MG/DL (0.3-1.2); BLOOD UREA NITROGEN 17 MG/DL (9-23); CALCIUM LEVEL 9.4 MG/DL (8.5-10.1); CARBON DIOXIDE LEVEL 27 MMOL/L (20-31); CHLORIDE LEVEL 105 MMOL/L (98-107); CHOLESTEROL LEVEL 238 MG/DL (<200); CHOLESTEROL RISK RATIO 3.92 (<5); CREATININE FOR GFR 0.69 MG/DL (0.55-1.30); GLOMERULAR FILTRATION RATE > 90.0 (>51); GLUCOSE, FASTING 98 MG/DL (60-100); HDL CHOLESTEROL 60.6 MG/DL (>40); LDL CHOLESTEROL 136.8 MG/DL (<100); NON-HDL-C 177.4 MG/DL; POTASSIUM SERUM 4.2 MMOL/L (3.5-5.1); SODIUM LEVEL 142 MMOL/L (136-145); TOTAL 25(OH) VITAMIN D 64.8 NG/ML (20.0-100.0); TOTAL PROTEIN 7.2 G/DL (5.7-8.2); TRIGLYCERIDES LEVEL 203 MG/DL (<150)
== END ==
LOC: M PLALAB 09:17
PROVIDERS: ATTEND Nurse Practitioner Family
DX: I10 Essential (primary) hypertension (principal)

== ENCOUNTER → 2025-04-15 | Outpatient (CLI) | payer MEDICARE ==
[~2025-04-15] MED LIST changes: +TOPI-256; -TOPI25TA10
== END ==
LOC: M SOG 06:56
PROVIDERS: ATTEND Neuromusculoskeletal Medicine, Sports Medicine
DX: M25.562 Pain in left knee (principal); M17.12 Unilateral primary osteoarthritis, left knee

== ENCOUNTER → 2025-05-20 | Outpatient (CLI) | payer MEDICARE ==
[~2025-05-20] MED LIST changes: -IBUP-1022 PO; +IBUP600T42 PO
[2025-05-20 14:12] LABS: BASO # 0.0 10^3/uL (0.0-0.2); BASO % 0.7 % (0.0-1.0); EOS # 0.2 10^3/uL (0.0-0.5); EOS % 3.3 % (0.0-3.0); LYMPH # 1.6 10^3/uL (1.5-5.0); LYMPH % 26.0 % (24.0-44.0); MONO # 0.4 10^3/uL (0.0-0.8); MONO % 6.0 % (2.0-8.0); NEUTROPHILS # 3.8 10^3/uL (1.5-8.5); NEUTROPHILS % 63.7 % (36.0-66.0); PLATELET COUNT, AUTOMATED 296 10^3/uL (150-450)
[2025-05-20 14:46] LABS: ALT/SGPT 26 U/L (7.0-40); AST/SGOT 25 U/L (<34); CALCIUM LEVEL 9.5 MG/DL (8.5-10.1); CARBON DIOXIDE LEVEL 26 MMOL/L (20-31); CHLORIDE LEVEL 103 MMOL/L (98-107); CHOLESTEROL LEVEL 231 MG/DL (<200); CHOLESTEROL RISK RATIO 4.19 (<5); CREATININE FOR GFR 0.64 MG/DL (0.55-1.30); FREE T4 1.33 NG/DL (0.89-1.76); GLOMERULAR FILTRATION RATE > 90.0 (>51); LDL CHOLESTEROL 125.7 MG/DL (<100); MAGNESIUM LEVEL 1.9 MG/DL (1.8-2.4); NON-HDL-C 175.9 MG/DL; POTASSIUM SERUM 4.3 MMOL/L (3.5-5.1); SODIUM LEVEL 141 MMOL/L (136-145); TOTAL 25(OH) VITAMIN D 55.6 NG/ML (20.0-100.0); TRIGLYCERIDES LEVEL 251 MG/DL (<150)
== END ==
LOC: M PLALAB 09:30
PROVIDERS: ATTEND Nurse Practitioner Family
DX: I10 Essential (primary) hypertension (principal); E55.9 Vitamin D deficiency, unspecified; E03.9 Hypothyroidism, unspecified; E78.5 Hyperlipidemia, unspecified

== ENCOUNTER 2025-05-21 10:18 | Outpatient (RCR) | payer MEDICARE | END 2025-05-24 | LOC: M PT 10:18 | PROVIDERS: ATTEND Neuromusculoskeletal Medicine, Sports Medicine | DX: M17.12 Unilateral primary osteoarthritis, left knee (principal) ==

== ENCOUNTER → 2025-06-04 | Outpatient (REF) | payer MEDICARE ==
[2025-06-05 12:55] LABS: APPEARANCE, URINE CLEAR (CLEAR); BACTERIA, URINE AUTO NEGATIVE (NEGATIVE); BILIRUBIN, URINE AUTO NEGATIVE (NEGATIVE); BLOOD, URINE BLOOD NEGATIVE (NEGATIVE); GLUCOSE, URINE (UA) AUTO NEGATIVE (NEGATIVE); KETONE, URINE AUTO NEGATIVE (NEGATIVE); LEUKOCYTE ESTERASE, URINE AUTO NEGATIVE (NEGATIVE); NITRITE, URINE AUTO NEGATIVE (NEGATIVE); PROTEIN, URINE AUTO NEGATIVE (NEGATIVE); RBC, URINE AUTO 0 /HPF (0-3); SPECIFIC GRAVITY URINE AUTO 1.008 (1.002-1.035); SQUAMOUS EPITHELIAL CELL UR AU 0 /HPF (0-6); UROBILINOGEN, URINE AUTO 0.2 mg/dL (0.0-2.0); WBC, URINE AUTO 1 /HPF (0-3)
== END ==
LOC: M SFHCPLAZ 11:49
PROVIDERS: ATTEND Nurse Practitioner Family
DX: N39.0 Urinary tract infection, site not specified (principal)

== ENCOUNTER → 2025-06-10 | Outpatient (CLI) | payer MEDICARE | LOC: M PLAIMG 12:04 | PROVIDERS: ATTEND Nurse Practitioner Family | DX: M25.552 Pain in left hip (principal); M16.12 Unilateral primary osteoarthritis, left hip ==

== ENCOUNTER 2025-06-17 10:31 | Outpatient (RCR) | payer MEDICARE | END 2025-06-23 | LOC: M PT 10:31 | PROVIDERS: ATTEND Neuromusculoskeletal Medicine, Sports Medicine | DX: M17.12 Unilateral primary osteoarthritis, left knee (principal) ==

== ENCOUNTER → 2025-06-24 | Outpatient (CLI) | payer MEDICARE, OTHER | LOC: M WHC 10:29 | PROVIDERS: ATTEND Surgery | DX: Z12.31 Encounter for screening mammogram for malignant neoplasm of breast (principal) ==

== ENCOUNTER 2025-08-27 16:05 | Emergency (ER) | payer MEDICARE, OTHER ==
[~2025-08-27] VITALS: Ht 160 cm; Wt 97.7 kg
[~2025-08-27 16:05] MED LIST changes: +BUPR-363 PO; -BUPR75TA5 PO
[2025-08-27 16:54] LABS: BASO # 0.0 10^3/uL (0.0-0.2); BASO % 0.5 % (0.0-1.0); EOS # 0.1 10^3/uL (0.0-0.5); EOS % 2.0 % (0.0-3.0); LYMPH # 1.7 10^3/uL (1.5-5.0); LYMPH % 25.1 % (24.0-44.0); MONO # 0.4 10^3/uL (0.0-0.8); MONO % 5.6 % (2.0-8.0); NEUTROPHILS # 4.4 10^3/uL (1.5-8.5); NEUTROPHILS % 66.3 % (36.0-66.0); PLATELET COUNT, AUTOMATED 292 10^3/uL (150-450)
[2025-08-27] MEDS: ASPIRIN 81 MG CHEWABLE TABLET PO ONE (16:55)
[2025-08-27 17:34] LABS: ALT/SGPT 24 U/L (7.0-40); AST/SGOT 26 U/L (<34); CALCIUM LEVEL 9.2 MG/DL (8.3-10.6); CARBON DIOXIDE LEVEL 26 MMOL/L (20-31); CHLORIDE LEVEL 103 MMOL/L (98-107); CK-MB VALUE MASS 2.2 NG/ML (<3.6); CPK CREATINE PHOSPHOKINASE 151 U/L (34-145); CREATININE FOR GFR 0.64 MG/DL (0.55-1.30); GLOMERULAR FILTRATION RATE > 90.0 (>45); MB/CK RELATIVE INDEX 1.45 (< OR =4); POTASSIUM SERUM 4.0 MMOL/L (3.5-5.1); SODIUM LEVEL 140 MMOL/L (136-145)
[2025-08-27 18:26] LABS: CK-MB VALUE MASS 2.0 NG/ML (<3.6)
[2025-08-27 18:30] LABS: CPK CREATINE PHOSPHOKINASE 143.0 U/L (34-145); MB/CK RELATIVE INDEX 1.39 (< OR =4)
[2025-08-27 18:54] VITALS: BP 148/74; TEMP 98.3; O2SAT 99
== END 2025-08-27 18:57 | disposition home or self-care (01) ==
LOC: M ED 16:05
DX: R07.9 Chest pain, unspecified (principal); I10 Essential (primary) hypertension; Z79.1 Long term (current) use of non-steroidal anti-inflammatories (NSAID); Z79.899 Other long term (current) drug therapy; Z79.810 Long term (current) use of selective estrogen receptor modulators (SERMs)
CPT/HCPCS: 36415; 71045; 80048; 80076; 82550; 82553; 83690; 84443; 84484; 85025; 93005; 93041; 94760; 99284; G0463